=== PATIENT | male | born 1950 | race Caucasian/White ===

== ENCOUNTER 2017-11-24 01:28 | Inpatient (IN) ==
[~2017-11-24 01:28] MED LIST: Naloxone 0.4 MG/ML INJ IVP PRN
[2017-11-24] MEDS ORDERED: Ipratropium/Albuterol Neb 3 ML IH PRN (01:31)
[2017-11-24] MEDS ORDERED: *HR* Enoxaparin 60 MG/0.6 ML SYRINGE SQ ONE (01:48)
--- NOTE | 2017-11-24 01:53 | Internal Med History&Physical ---
Date of Encounter: 11/24/17 Time of Encounter: 01:51 Assessment and Plan (1) Community acquired pneumonia Current visit: No Status: Acute check serologies cefepime, azithro IV IVF Qualifiers: Qualified Code(s): J18.9 - Pneumonia, unspecified organism (2) Acute bronchitis Current visit: Yes Status: Acute duonebs, IV steroids Qualifiers: Bronchitis organism: other organism Qualified Code(s): J20.8 - Acute bronchitis due to other specified organisms (3) NSTEMI (non-ST elevated myocardial infarction) Current visit: Yes Status: Acute likely has some CAD with demand from acute illness trend trop TTE plavix load, ASA, lovenox start coreg repeat EKG in a.m cardiac eval when respiratory function stable (4) SIRS (systemic inflammatory response syndrome) Current visit: Yes Status: Acute treatment as above Internal Medicine - H&P: HPI Chief complaint: Shortness of breath History of present illness: Mr. Abrams is a 67 year old male who presents with pneumonia, SIRs presentation , NSTEMI. Patient was admitted to [facility] for progressive 3 weeks history of shortness of breath that is worsening. He reports being winded while ambulating around his house. Associated with diaphoresis this morning. Due to worsening and progressive shortness of breath and decreased physical condition at home he decided to visit the hospital today. He was initially admitted at [facility] but was subsequently transferred to the [place] due to elevation of lactic acid and troponemia that needed increased effort to manage. He had occasional chest tightness, pressure on review and most recently he had chest tightness a few days ago. He denies any chest pain at current on repeat questioning At baseline he smokes one and quarter pack of service per day for many years, has COPD but uses no home oxygen, has hypertension but is not on any medicines. He last saw a doctor 25 years ago per his report. EKG personally reviewed with rate of 108, T-wave inversion V4 ,5,[address] segment XR/XR chest 1V portable IMPRESSION: COPD. Patchy bilateral mid and lower lung interstitial opacities may reflect interstitial edema or atypical pneumonia. Past Med Surg Social Fam HX - Past Medical History Medical history: COPD Psychiatric history: no psych history - Past Surgical History Surgical History: no surgical history - Social History Smoking Status: Current every day smoker Smokeless Tobacco Status: No Alcohol use: occasionally Drug use: none Internal Medicine - H&P: Meds No Known Home Drugs 11/23/17 [History] 3 Allergy/AdvReac Type Severity Reaction Status Date / Time No Known Allergies Allergy Verified 11/23/17 14:47 All Systems PM: A 10-system review of systems was performed and is negative for pertinent findings except as documented above in the HPI. - Constitutional Exam: General - AAO x 3 Psych - Appropriate affect/speech. No agitation Eyes - JOSE MANUEL. Eye lids intact. No scleral icterus Neuro - No gross peripheral or central neuro deficits on inspection Heart - Sinus tachycardia. S1 and S2 present. No added HS/murmurs appreciated. No elevated JVD appreciated. Lung - Adequate air entry b/l, diffuse wheezes, crackles appreciated GI - Soft, non-tender. No hepatosplenomegaly/ascites. BS+ - No CVA/suprapubic tenderness or palpable bladder distension Skin - Intact. No rash/petechiae/ecchymosis. Warm extremities MSK - Joints with normal ROM. No joint swellings Internal Med - H&P Results - Labs CBC & Chem 7: 11/24/17 01:32
[2017-11-24] MEDS: 0.9 % Sodium Chloride 1,000 ML IVC SCH ×2 (01:55→05:51)
[2017-11-24 01:56] LABS: Basophils % 0.1 %; Hematocrit 49.1 % (37.5-50.1); Immature Granulocytes % 0.2 % (0-4); Lymphocytes # 0.4 K/mcL (0.6-4.6); Lymphocytes % 3.8 %; Mean Corpuscular HGB Conc 32.6 g/dL (31.6-35.5); Mean Corpuscular Hemoglobin 30.7 pg (28.0-33.3); Mean Corpuscular Volume 94.1 fL (83.0-100.0); Mean Platelet Volume 11.1 fL (9.4-12.4); Monocytes # 0.1 K/mcL (0.0-1.3); Monocytes % 1.3 %; Neutrophils # 9.2 K/mcL (1.6-8.9); Platelet Count 120 K/mcL (140-400); Red Blood Count 5.22 M/mcL (4.19-5.50); Red Cell Distribution Width 13.2 % (11.5-14.5); Segmented Neutrophils % 94.6 %
[2017-11-24] MEDS ORDERED: D5% in Water 1,000 ML IVC PRN (02:04)
[2017-11-24] MEDS ORDERED: *HR* Dextrose 50 % in Water (Syg) 50 ML SYRINGE IVP PRN (02:04)
[2017-11-24] MEDS ORDERED: Dextrose Gel 15 GM/37.5 ML TUBE PO PRN ×2 (02:04)
[2017-11-24 02:16] LABS: Alanine Aminotransferase 18 Units/L (7-52); Albumin 4.2 g/dL (3.5-5.7); Albumin/Globulin Ratio 1.8 (1.1-2.2); Alkaline Phosphatase 59 Units/L (34-104); Aspartate Amino Transferase 54 Units/L (13-39); BUN/Creatinine Ratio 17 (6-26); Bilirubin,Total 0.7 mg/dL (0.3-1.0); Blood Urea Nitrogen 18 mg/dL (8-23); Calcium 8.8 mg/dL (8.6-10.3); Carbon Dioxide 21 mEq/L (23-29); Chloride 105 mEq/L (98-107); Globulin 2.4 g/dL (2.4-3.5); Glucose 145 mg/dL (70-105); Magnesium 1.7 mg/dL (1.6-2.6); Osmolality,Calculated 290 (280-300); Potassium 3.9 mEq/L (3.5-5.1); Sodium 138 mEq/L (136-145); Total Protein 6.6 g/dL (6.4-8.9); eGFR For African Americans > 60 (> 60); eGFR For Non-African Americans > 60 (> 60)
[2017-11-24] MEDS: Ipratropium/Albuterol Neb 3 ML IH SCH ×4 (05:36→23:39)
[2017-11-24] MEDS: MethylPREDNISolone 40 MG/ML VIAL IVP SCH ×4 (05:52→23:06)
[2017-11-24 05:59] LABS: Adenovirus Not Detected (Not Detect); Bordetella Pertussis Not Detected (Not Detect); Chlamydophila pneumoniae Not Detected (Not Detect); Coronavirus 229E Not Detected (Not Detect); Coronavirus HKU1 Not Detected (Not Detect); Coronavirus NL63 Not Detected (Not Detect); Coronavirus OC43 Not Detected (Not Detect); Human Metapneumovirus Not Detected (Not Detect); Human Rhinovirus/Enterovirus Not Detected (Not Detect); Influenza A Subtype 2009 H1 Not Detected (Not Detect); Influenza A Untypeable Not Detected (Not Detect); Influenza B Not Detected (Not Detect); Mycoplasma pneumoniae Not Detected (Not Detect); Parainfluenza Virus 1 Not Detected (Not Detect); Parainfluenza Virus 2 Not Detected (Not Detect); Parainfluenza Virus 3 Not Detected (Not Detect); Parainfluenza Virus 4 Not Detected (Not Detect); Respiratory Syncytial Virus Not Detected (Not Detect)
[2017-11-24] MEDS: Insulin LISPRO 300 UNITS/3 ML VIAL SQ SCH ×4 (08:20→21:34)
[2017-11-24] MEDS: Azithromycin 500 MG in D5% in Water 250 ML IVPB SCH (08:27)
[2017-11-24] MEDS: Aspirin Enteric Coated 81 MG Tablet PO SCH (08:27)
[2017-11-24] MEDS ORDERED: *HR* Heparin 5,000 UNIT/ML VIAL IVP PRN (08:33)
[2017-11-24] MEDS ORDERED: *HR* Heparin 5,000 UNIT/ML VIAL IVP ONE (08:33)
[2017-11-24] MEDS ORDERED: Heparin 25,000 UNIT/500 ML D5W 25,000 UNIT/500 ML BAG IVC SCH (08:45)
[2017-11-24 09:08] LABS: INR 1.1; Prothrombin Time 11.5 Seconds (9.4-12.1)
--- NOTE | 2017-11-24 09:11 | Cardiology Consult Note ---
Date of Encounter: 11/24/17 Time of Encounter: 08:53 Assessment and Plan (1) NSTEMI (non-ST elevated myocardial infarction) Current Visit: Yes Status: Acute Troponin 0.05, 0.69, 3.00, 6.18. EKG sinus tach, evidence of inferior PA. Was on therapeutic Lovenox, hospitalist switched to Heparin gtt. ASA, Statin, BB were started. Pt has already been Plavix loaded with 300mg. TTE pending to evaluate structure and function. Risk factors for CAD include tobacco abuse and family hx. However, pt has not seen a healthcare provider in 25 years. May have other comorbidities that are unknown. Recommend LHC to further evaluate. R/B/A discussed. Pt agrees to proceed. However, pt currently unable to lay flat. Sitting in tripod position. Stopped IV fluids, give one time dose of IV Lasix 80mg. LHC once able to lie flat. (2) Acute exacerbation of CHF (congestive heart failure) Current Visit: Yes Status: Acute Acute CHF exacerbation. BNP 2048. TTE to determine systolic vs diastolic. CXR with pulmonary edema. Currently in tripod position, significant dyspnea. Stopped IV fluids. One time dose of IV Lasix 80mg given now. Will see how pt responds and plan to start scheduled Lasix. Recommend 2L fluid restriction, daily weights, Na and fluid restriction Qualifiers: Heart failure type: unspecified Qualified Code(s): I50.9 - Heart failure, unspecified (3) NSVT (nonsustained ventricular tachycardia) Current Visit: Yes Status: Acute Brief NSVT episodes on tele in setting of NSTEMI and CHF. BB started. As above, plan for LHC once respiratory status allows. TTE pending. Discussion w patient/family: The assessment and plan as outlined above was discussed with the patient and/or family members who expressed understanding and agreement. All questions were answered. Thank you for involving us in the care of your patient. Please call with any questions. I will discuss all the above with Dr. Jesus and make changes as necessary. History of Present Illness Consult date: 11/24/17 Requesting physician: Franck Rainey Consult reason: NSTEMI, CHF Chief complaint: dyspnea, chest tightness History of present illness: Mr. Abrams is a 67 year old male with known PMH of COPD, tobacco abuse that presented at [facility] for progressive 3 week hx of dyspnea. He also admits to intermittent chest tightness with radiation to left neck, no exacerbating or alleviating factors. Endorses intermittent diaphoresis, mostly at night. Pt has not seen a healthcare provider in 25 years. Since admission, pt has been diagnosed with pneumonia, SIRs presentation, NSTEMI. Troponins 0.05, 0.69, 3.00 , 6.18. Cardiology consulted for further recommendations. BNP 2048. CXR shows COPD. Patchy bilateral mid and lower lung interstitial opacities may reflect interstitial edema or atypical pneumonia. Pt is currently chest pain free, but sitting in tripod position due to significant dyspnea. Past Med Surg Social Fam HX - Past Medical History Medical history: COPD Psychiatric history: no psych history - Past Surgical History Surgical History: no surgical history - Social History Smoking Status: Current every day smoker Smokeless Tobacco Status: No Alcohol use: occasionally Drug use: none Medications and Allergies No Known Home Drugs 11/23/17 [History] 3 Allergy/AdvReac Type Severity Reaction Status Date / Time No Known Allergies Allergy Verified 11/24/17 08:43 All Systems Review: The remainder of the systems were reviewed and are negative - Cardiovascular Cardiovascular: as per HPI, chest pain at rest, chest pain with exertion, diaphoresis, dyspnea at rest, dyspnea on exertion - Respiratory Respiratory: dyspnea Physical Examination Vital Signs, Last 4 Hours Pulse Resp Pulse Ox 11/24/17 07:51 107 11/24/17 05:37 20 93 Vital Signs Temp Pulse Resp BP Pulse Ox 11/24/17 07:51 107 11/24/17 05:37 20 93 11/24/17 02:55 98.2 F 110 22 108/92 95 Intake and Output 11/23/17 11/24/17 11/24/17 23:59 07:59 15:59 Intake Total 1000 / 1000 Output Total 275 / 275 Balance 725 / 725 Intake: IV Fluids 1000 / 1000 0.9 % Sodium Chloride 1,000 ML 1000 / 1000 @ 100 mls/hr IVC .Q10H [facility] Rx#: [id number] Output: Urine 275 / 275 Other: Weight 65.499 kg Patient Weight 11/24/17 23:59 Weight 65.499 kg Vital Signs Temp Pulse Resp BP Pulse Ox 11/24/17 07:51 107 11/24/17 05:37 20 93 11/24/17 02:55 98.2 F 110 22 108/92 95 Intake and Output 11/23/17 11/24/17 11/24/17 23:59 07:59 15:59 Intake Total 1000 / 1000 Output Total 275 / 275 Balance 725 / 725 Intake: IV Fluids 1000 / 1000 0.9 % Sodium Chloride 1,000 ML 1000 / 1000 @ 100 mls/hr IVC .Q10H [facility] Rx#: [id number] Output: Urine 275 / 275 Other: Weight 65.499 kg Patient Weight 11/24/17 23:59 Weight 65.499 kg General: Conversant HEENT: Atraumatic, Normocephaly, Mucus Membranes Moist Neck: Normal carotid pulses Cardiac: Other (tachycardic) Lungs: Other (diminished, mild wheezes) Neuro: Alert and responsive, No focal deficits noted Abdomen: Soft, Non-Tender Skin: No rashes noted on visualized skin Musculoskeletal: No Chest Wall Tenderness Extremities: No Clubbing, No Cyanosis, No Edema, Normal Pulses Results 11/24/17 01:32 11/24/17 01:32 Lab Results 11/24/17 11/24/17 11/24/17 01:32 01:32 01:32 WBC 9.7 Hgb 16.0 D Hct 49.1 Plt Count 120 L Sodium 138 Potassium 3.9 Chloride 105 Carbon Dioxide 21 L BUN 18 Creatinine 1.08 Glucose 145 H Calcium 8.8 Magnesium 1.7 Total Bilirubin 0.7 AST 54 H ALT 18 Alkaline Phosphatase 59 Troponin I B-Natriuretic Peptide 2048 H 11/24/17 11/24/17 01:32 07:37 WBC Hgb Hct Plt Count Sodium Potassium Chloride Carbon Dioxide BUN Creatinine Glucose Calcium Magnesium Total Bilirubin AST ALT Alkaline Phosphatase Troponin I 3.00 H* 6.18 H* B-Natriuretic Peptide Short CBC 11/24/17 Range/Units 01:32 WBC 9.7 (4.3-11.1) K/mcL Hgb 16.0 D (12.9-16.9) g/dL Hct 49.1 (37.5-50.1) % Plt Count 120 L (140-400) K/mcL Neutrophils # 9.2 H (1.6-8.9) K/mcL BMP 11/24/17 Range/Units 01:32 Sodium 138 (136-145) mEq/L Potassium 3.9 (3.5-5.1) mEq/L Chloride 105 (98-107) mEq/L Carbon Dioxide 21 L (23-29) mEq/L BUN 18 (8-23) mg/dL Creatinine 1.08 (0.70-1.30) mg/dL Glucose 145 H (70-105) mg/dL Calcium 8.8 (8.6-10.3) mg/dL Cardiac Enzymes 11/24/17 11/24/17 Range/Units 07:37 01:32 Troponin I 6.18 H* 3.00 H* (< 0.04) ng/mL Liver Function 11/24/17 Range/Units 01:32 Total Bilirubin 0.7 (0.3-1.0) mg/dL AST 54 H (13-39) Units/L ALT 18 (7-52) Units/L Alkaline Phosphatase 59 (34-104) Units/L Albumin 4.2 (3.5-5.7) g/dL Active Medications Albuterol/Ipratropium (Duoneb) 3 ml IH QIDR [facility] Stop: 05/26/18 05:01 Last Admin: 11/24/17 05:36 Dose: 3 ml Albuterol/Ipratropium (Duoneb) 3 ml IH [id number] PRN PRN Reason: Shortness Of Breath/Wheezing Stop: 05/26/18 01:32 Aspirin (Aspirin Ec) 81 mg PO DAILY [facility] Stop: 05/26/18 09:01 Last Admin: 11/24/17 08:27 Dose: 81 mg Atorvastatin Calcium (Lipitor) 80 mg PO HS [facility] Stop: 05/26/18 08:46 Carvedilol (Coreg) 3.125 mg PO BIDWM [facility] PRN Reason: Protocol Stop: 05/26/18 01:46 Last Admin: 11/24/17 08:27 Dose: 3.125 mg Dextrose/Water (Dextrose 50% (Syg)) 25 ml IVP AD PRN PRN Reason: Hypoglycemia Stop: 05/26/18 02:05 Glucagon (Glucagen) 1 mg IM ONCE PRN PRN Reason: Hypoglycemia Stop: 05/26/18 02:05 Glucose (Gluctose) 15 gm PO ONCE PRN PRN Reason: Hypoglycemia Stop: 05/26/18 02:05 Glucose (Gluctose) 30 gm PO ONCE PRN PRN Reason: Hypoglycemia Stop: 05/26/18 02:05 Heparin Sodium (Porcine) (Heparin) 3,900 unit 60 unit/kg (3900 unit) IVP Q6HR PRN PRN Reason: SEE COMMENTS Stop: 05/26/18 08:34 Heparin Sodium (Porcine) (Heparin) 2,000 unit 30 unit/kg (2000 unit) IVP Q6H PRN PRN Reason: SEE COMMENTS Stop: 05/26/18 08:34 Sodium Chloride (0.9 % Sodium Chloride) 1,000 mls @ 100 mls/hr IVC .Q10H [facility] Stop: 05/26/18 01:31 Last Admin: 11/24/17 05:51 Dose: 100 mls/hr Azithromycin 500 mg/ Dextrose 250 mls @ 252 mls/hr IVPB Q24H [facility] Stop: 05/26/18 09:01 Last Admin: 11/24/17 08:27 Dose: 252 mls/hr Dextrose (Dextrose 5%) 1,000 mls @ 100 mls/hr IVC .Q10H PRN PRN Reason: HYPOGLYCEMIA Stop: 05/26/18 02:05 Heparin Sodium/Dextrose (Heparin 25,000 Unit/500 Ml D5w) 25,000 unit in 500 mls @ 15.72 mls/hr IVC .Q24H [facility]; 12 UNIT/KG/HR PRN Reason: Protocol Stop: 05/26/18 08:46 Last Admin: 11/24/17 09:03 Dose: 12 unit/kg/hr, 15.72 mls/hr Insulin Human Lispro (Humalog) 0 units SQ TIDAC [facility] PRN Reason: Protocol Stop: 05/26/18 07:31 Last Admin: 11/24/17 08:20 Dose: Not Given Insulin Human Lispro (Humalog) 0 units SQ HS [facility] PRN Reason: Protocol Stop: 05/26/18 21:01 Methylprednisolone (Solu-Medrol) 40 mg IVP Q6HR [facility] Stop: 05/26/18 06:01 Last Admin: 11/24/17 05:52 Dose: 40 mg Naloxone HCl (Narcan) 0.4 mg IVP Q2MIN PRN PRN Reason: SEE COMMENTS Stop: 05/26/18 01:27 - EKG Interpretation EKG results cardiology: personally reviewed (sinus tach, rate 108, LVH, inferior PA), other (12 hr tele AVG HR 105, SR, brief runs of NSVT noted-- longest run 8 beats) Consult Discharge Plan - Plan Referrals: NONE,PCP [Primary Care Provider] -
[2017-11-24] MEDS ORDERED: Furosemide 40 MG/4 ML VIAL IVP ONE ×2 (09:18→09:27)
--- NOTE | 2017-11-24 11:33 | Internal Med Progress Note ---
<Zac Jacinto - Last Filed: 11/24/17 11:31> Date of Encounter: 11/24/17 Time of Encounter: 11:31 - Assessment and plan (1) NSTEMI (non-ST elevated myocardial infarction) Current Visit: Yes Status: Acute Assessment and plan: Patient's troponins are 0.05, 0.69, 3.00, 6.18 respectively. Continues to have chest tightness and worsening shortness of breath. EKG shows sinus tachycardia with Q waves in inferior leads. Patient heparin GTT. Continue aspirin, statin, beta bev Echocardiogram pending. Risk factors: Family history: Mother at age 52 secondary to [place]. Father at age 70 secondary to [place]. Patient is a long-time tobacco abuser. (2) Acute exacerbation of CHF (congestive heart failure) Current Visit: Yes Status: Acute Assessment and plan: Acute CHF exacerbation. BNP 2047 Patient has never had echocardiogram in the past. Echocardiogram pending. Continue cardiac diet. Fluid restrict to 2 L. Patient given Lasix 80 mg IV this morning Strict I's and O's. Qualifiers: Heart failure type: unspecified Qualified Code(s): I50.9 - Heart failure, unspecified (3) Community acquired pneumonia Current Visit: Yes Status: Suspected Assessment and plan: Patient presented with shortness of breath Patient is a long time tobacco abuser. Chest x-ray shows bilateral patchy mid and lower lung interstitial opacities possibly atypical pneumonia. Patient was started on azithromycin Awaiting blood cultures, serologies Strep and legionella antigens negative. RIP panel negative Qualifiers: Laterality: unspecified laterality Qualified Code(s): J18.9 - Pneumonia, unspecified organism (4) Sepsis Current Visit: Yes Status: Acute Assessment and plan: Leukocytosis, tachycardia, tachypnea, lactic acidosis Secondary to suspected pneumonia. Continue antibiotics. Awaiting blood cultures. Qualifiers: Sepsis type: sepsis due to unspecified organism Qualified Code(s): A41.9 - Sepsis, unspecified organism (5) Acute kidney failure Current Visit: Yes Status: Suspected Assessment and plan: Resolved. IVF d/c Qualifiers: Acute renal failure type: unspecified Qualified Code(s): N17.9 - Acute kidney failure, unspecified (6) Acid-base disorder, mixed Current Visit: Yes Status: Acute Assessment and plan: REspiratory acidosis with metabolic alkalosis 2nd to COPD Metabolic acidosis 2nd to lactic acidosis 2nd to NSTEMI in setting of MAGDY (7) Metabolic acidosis Current Visit: Yes Status: Acute Assessment and plan: as stated above. (8) COPD exacerbation Current Visit: Yes Status: Acute Assessment and plan: Smokes 1.25 PPD for many years continue O2, steroids, antibiotics (9) Tobacco abuse Current Visit: Yes Status: Acute Assessment and plan: Patient educated on benefits of tobacco cessation. - Subjective Interval history: Patient reports his shortness of breath is worse than on admission. He reports having continued chest tightness this morning. He reports overall feeling worse and admission. Cardiology recommended left heart catheter to patient today and patient agreed to procedure. - Constitutional Vitals: Temp Pulse Resp BP Pulse Ox 98.1 F 103 20 153/98 96 11/24/17 09:19 11/24/17 11:21 11/24/17 10:51 11/24/17 10:33 11/24/17 10:51 - Other Additional findings: General: Lethargic, moderate distress Heart: Sinus tachycardia Lungs: Diminished, bilateral wheezing Abdomen: Soft nontender, nondistended positive bowel sounds Skin: warm and dry Extremities: Absent pedal edema, Neuro: Alert oriented 3 Vascular: Pedal and radial pulses 2 out of 4 Internal Medicine: Result - Labs CBC & Chem 7: 11/24/17 01:32 11/24/17 01:32 Labs: Short CBC 11/24/17 Range/Units 01:32 WBC 9.7 (4.3-11.1) K/mcL Hgb 16.0 D (12.9-16.9) g/dL Hct 49.1 (37.5-50.1) % Plt Count 120 L (140-400) K/mcL Neutrophils # 9.2 H (1.6-8.9) K/mcL BMP 11/24/17 01:32 Sodium 138 Potassium 3.9 Chloride 105 Carbon Dioxide 21 L BUN 18 Creatinine 1.08 Glucose 145 H Calcium 8.8 Cardiac Enzymes 11/24/17 11/24/17 Range/Units 01:32 07:37 Troponin I 3.00 H* 6.18 H* (< 0.04) ng/mL Liver Function 11/24/17 Range/Units 01:32 Total Bilirubin 0.7 (0.3-1.0) mg/dL AST 54 H (13-39) Units/L ALT 18 (7-52) Units/L Alkaline Phosphatase 59 (34-104) Units/L Albumin 4.2 (3.5-5.7) g/dL - ABG Interpretation ABG results: PT/INR, D-dimer PT 11.5 Seconds (9.4-12.1) 11/24/17 08:46 Consult Discharge Plan - Plan Referrals: Rosa Schwarz, [facility] [employer] [Advanced Practice Nurse] - 12/01/17 1:00 pm NONE,PCP [Primary Care Provider] - <Keyur Langford - Last Filed: 11/24/17 18:15> Date of Encounter: 11/24/17 - Constitutional Vitals: Temp Pulse Resp BP Pulse Ox 98.2 F 102 18 155/91 94 11/24/17 15:55 11/24/17 18:10 11/24/17 16:15 11/24/17 18:10 11/24/17 16:15 Internal Medicine: Result - Labs CBC & Chem 7: 11/24/17 01:32 11/24/17 01:32 Labs: Short CBC 11/24/17 Range/Units 01:32 WBC 9.7 (4.3-11.1) K/mcL Hgb 16.0 D (12.9-16.9) g/dL Hct 49.1 (37.5-50.1) % Plt Count 120 L (140-400) K/mcL Neutrophils # 9.2 H (1.6-8.9) K/mcL BMP 11/24/17 01:32 Sodium 138 Potassium 3.9 Chloride 105 Carbon Dioxide 21 L BUN 18 Creatinine 1.08 Glucose 145 H Calcium 8.8 Cardiac Enzymes 11/24/17 11/24/17 Range/Units 01:32 07:37 Troponin I 3.00 H* 6.18 H* (< 0.04) ng/mL Liver Function 11/24/17 Range/Units 01:32 Total Bilirubin 0.7 (0.3-1.0) mg/dL AST 54 H (13-39) Units/L ALT 18 (7-52) Units/L Alkaline Phosphatase 59 (34-104) Units/L Albumin 4.2 (3.5-5.7) g/dL - ABG Interpretation ABG results: PT/INR, D-dimer PT 11.5 Seconds (9.4-12.1) 11/24/17 08:46 - Attending Attestation I examined this patient and my medical decision-making was reviewed with the Resident Physician on 11/24/17. I agree with the documented findings, disposition and treatment plan as described except to the extent set forth below. Mr Abrams was admitted earlier today with presumed sepsis and acute NSTEMI. He is pain free at this time. He is to go to cardiac cath today. Exam alert Comfortable Mucus membranes dry Lungs diminished Heart reg I/P 1. NSTEMI - for cath today Agree with plan as above.
[2017-11-24] MEDS ORDERED: Heparin 1,000 UNITS/500 mL 500 ML ONE (14:03)
[2017-11-24] MEDS ORDERED: ISOVUE-370 200 ML INFUS..BTL IV ONE (14:03)
[2017-11-24] MEDS ORDERED: *HR* Heparin 10,000 UNIT/10 ML VIAL ONE (14:03)
[2017-11-24] MEDS ORDERED: 0.9 % Sodium Chloride 1,000 ML ONE ×2 (14:03→14:28)
--- NOTE | 2017-11-24 14:16 | Pre-Sedation Evaluation ---
Pre-sedation evaluation - Pre-sedation checklist Date of procedure: 11/24/17 Procedure: LHC Recent Vitals: Last Vital Signs Temp 97.8 F 11/24/17 12:48 Pulse 99 11/24/17 12:48 Resp 19 11/24/17 12:48 BP 144/88 11/24/17 12:48 Pulse Ox 96 11/24/17 10:51 ASA Classification *see protocol: CLASS II-Mild systemic disease Plan of Care: Pt appropriate candidate for procedure/moderate/conscious sedation
[2017-11-24] MEDS ORDERED: *HR* FentaNYL (PF) 100 MCG/2 ML VIAL ONE (14:40)
[2017-11-24] MEDS ORDERED: *HR* Midazolam HCl 2 MG/2 ML VIAL ONE (14:40)
[2017-11-24] MEDS ORDERED: Nitroglycerin Spray 4.9 GM BOTTLE ONE (14:52)
[2017-11-24] MEDS ORDERED: *HR* Enoxaparin 40 MG/0.4 ML SYRINGE SQ SCH (15:00)
--- NOTE | 2017-11-24 15:55 | Invasive Diagnostic Lab Proc ---
Name: Phillip Abrams Date of Study: 11/24/2017 Date: 1950 Ht: 68.1in Medical Record#: [id number] Age: 67 Wt: 143.30lb Gender: Male BSA: 1.78 Order #: [id number] BMI: 21.72 Physicians Procedure Physician: Ant Crisostomo MD Referring MD: Referring MD: Staff Name Position Time In Alissa Restrepo RN Medical Oncologist 02:38 PM Tad Olivares RN Medical Oncologist 02:38 PM Claudine Neville RN Scrub 02:38 PM Maxine Hart RT (R) Monitor 02:38 PM Indications Indication Non-Stemi Procedures Performed Procedure CORONARY ARTERY ANGIO S&I Pre-Procedure Checklist Informed consent is complete signed and on chart. H&P is on chart. ID band is on and ID verified with patient. Patient NPO for procedure The procedure was described for the patient and questions were answered. Blood Pressure: 163/110 ECG is on chart. Rhythm: NSR Plan of Care Patient will tolerate the procedure without complications. Adequate level of comfort will be maintained. Hemodynamics will remain stable Patient will recover from procedure without complications. Respiratory function will be maintained. Cardiac rhythm will remain stable. Patient temperature will be maintained. Patient and/or family have verbalized understanding of the procedure. Patient Education Chief Complaint/Reason for Test: Cardiac Cath Developmental Category: Geriatric (65+ years) Developmentally Appropriate for Age: Yes Learning Barriers: None Education Needs: Procedure Education Method: Verbal Information Taught: Cardiac Cath Educational Evaluation: Able to repeat information Intravenous Access Time IV Size Location DC'd Fluid/Drip Rate Units RN 02:16 PM 20g 1 09/04" Patent On Arrival Lt Antecubital 0.9NaCl ml/hr Allergies No Known Allergies Vital Signs Time BP (mmHg) HR (bpm) O2 Sat. RR (bpm) LOC 163 / 110 121 94 % 20 5 = Fully awake and oriented or at pre-proc level 02:39 PM / % 5 = Fully awake and oriented or at pre-proc level 02:39 PM / % 4 = Oriented but drowsy 02:54 PM / % 4 = Oriented but drowsy 03:09 PM / % 4 = Oriented but drowsy 03:24 PM / % 4 = Oriented but drowsy 02:41 PM 163 / 110 120 94 % 18 02:45 PM 165 / 116 117 95 % 20 02:50 PM 161 / 100 106 95 % 25 02:55 PM 147 / 90 98 94 % 17 03:00 PM 142 / 84 101 92 % 12 03:05 PM 138 / 86 101 91 % 14 03:10 PM 151 / 95 105 92 % 22 03:15 PM 154 / 96 104 93 % 33 03:20 PM 144 / 85 102 93 % 25 03:25 PM 147 / 87 102 94 % 32 03:30 PM 148 / 89 101 94 % 37 03:35 PM 145 / 95 103 95 % 20 Procedural Medications Time Medication Dose Units Method Given By 02:39 PM Oxygen 2 L/min nasal cannula Tad Olivares RN 02:47 PM Versed 1 mg Intravenous Tad Olivares RN 02:48 PM Fentanyl 50 mcg Intravenous Tad Olivares RN 02:52 PM Lidocaine 2% 10 ml Subcutaneous Ant Crisostomo MD 03:07 PM Lidocaine 2% 10 ml Subcutaneous Ant Crisostomo MD ASA Classification: CLASS II- Mild systemic disease (i.e. well-controlled diabetes, hypertension, asthma, cigarette smoking) Iain Score Preprocedure Postprocedure Activity 2- Moves 4 extremities sustained head lift Activity 2- Moves 4 extremities sustained head lift Circulation 2- SBP +/= 20 points of pre-anesthetic level Circulation 2- SBP +/= 20 points of pre-anesthetic level Consciousness 2- Awake and alert oriented x 3 Consciousness 2- Awake and alert oriented x 3 O2 Saturation 2- Able to maintain O2 satruation of 92% on room air O2 Saturation 2- Able to maintain O2 satruation of 92% on room air Respiratory 2- Able to deep breathe and cough well Respiratory 2- Able to deep breathe and cough well Total Score 10 Total Score 10 Contrast Agent: Isovue Diagnostic Contrast: 100 ml Total Contrast: 100 ml Fluoro Dose: 503 mGy Activated Clotting Time Time Seconds to Clot 03:23 PM 194 Procedure Log Time Note Enter By 02:38 PM Pt arrived to dental lab technician 2 at 14:38 [email or web address] 02:38 PM Alissa Restrepo RN Position: Medical Oncologist Time in: 14:38 [email or web address] 02:38 PM Tad Olivares RN Position: Medical Oncologist Time in: 14:38 [email or web address] 02:38 PM Claudine Neville RN Position: Scrub Time in: 14:38 [email or web address] 02:38 PM Maxine Hart RT (R) Position: Monitor Time in: 14:38 [email or web address] 02:38 PM Patient charges- Angio tray pack, Navilyst 3mm J, Pulse Oximetry and ACIST tubing and transducer [email or web address] 02:38 PM Case Delayed No [email or web address] 02:38 PM Hair removed from procedure site in holding area using clippers. Bilateral groin prepped with Chloraprep by Alissa Restrepo RN, then patient was draped. Skin intact. [email or web address] 02:38 PM Physician arrived 14:38 [email or web address] 02:38 PM ASA Class CLASS II- Mild systemic disease (i.e. well-controlled diabetes, hypertension, asthma, cigarette smoking) [email or web address] 02:38 PM Meet and greet completed [email or web address] 02:38 PM Sign in performed according to hospital policy. [email or web address] 02:39 PM Procedure start 14:39 [email or web address] 02:39 PM Time: 14:39 Oxygen on at 2 L/min per nasal cannula by Tad Olivares RN [email or web address] 02:39 PM Time: 14:39 Patient comfortable and pain free: Yes [email or web address] 02:39 PM Time: 14:39LOC: 5 = Fully awake and oriented or at pre-proc level [email or web address] 02:39 PM CathStat 02:39 PM Vitals capture started with the following parameters, Patient=Adult, Interval=5 min, Initial Cinbpzlo=663 mmHg, Deflation Rate=3 mmHg, Cuff placed on Right Arm 02:40 PM Recorded ECG: CF=773 Condition=Condition 1 02:40 PM Recorded ECG: OD=278 Condition=Condition 1 02:41 PM QN=700 bpm, EYJW=436/110 mmhg, SpO2=94.0 %, Resp=18 B/min 02:44 PM Pressure channel 1 zeroed. 02:45 PM Pressure channel 1 zeroed. 02:45 PM AF=879 bpm, PWRD=718/116 mmhg, SpO2=95.0 %, Resp=20 B/min 02:48 PM Time: 14:47 Versed 1 mg Intravenous Given by Tad Olivares RN [email or web address] 02:48 PM Time: 14:48 Fentanyl 50 mcg Intravenous Given by Tad Olivares RN [email or web address] 02:49 PM Vitals capture stopped. 02:49 PM Vitals capture started with the following parameters, Patient=Adult, Interval=5 min, Initial Tkguyfmb=376 mmHg, Deflation Rate=3 mmHg, Cuff placed on Right Arm 02:50 PM Time out performed according to hospital policy [email or web address] 02:50 PM NL=674 bpm, RPIO=830/100 mmhg, SpO2=95.0 %, Resp=25 B/min 02:52 PM Time: 14:52 10 ml Lidocaine 2% to right groin Subcutaneous Given by Ant Crisostomo MD [email or web address] 02:52 PM Micro-Introducer Kit utilized for sheath placement [email or web address] 02:54 PM 3mls contrast rt groin. [email or web address] 02:54 PM Time: 14:39LOC: 4 = Oriented but drowsy [email or web address] 02:54 PM Time: 14:39 Patient comfortable and pain free: Yes [email or web address] 02:55 PM HR=98 bpm, BYOA=152/90 mmhg, SpO2=94.0 %, Resp=17 B/min 02:58 PM Wire removed [email or web address] 02:58 PM 0.035 145cm Glidewire wire [id number] [email or web address] 03:00 PM FO=168 bpm, HUNG=922/84 mmhg, SpO2=92.0 %, Resp=12 B/min 03:[address] Crisostomo pulled sheath unable to get wire through rt Iliac artery. Severe calcification in artery. [email or web address] 03:05 PM AR=357 bpm, RSFW=926/86 mmhg, SpO2=91.0 %, Resp=14 B/min 03:07 PM Time: 15:07 10 ml Lidocaine 2% to left groin Subcutaneous Given by Ant Crisostomo MD [email or web address] 03:08 PM Pressure channel 1 zeroed. 03:08 PM Micro-Introducer Kit utilized for sheath placement [email or web address] 03:09 PM Time: 14:54 Patient comfortable and pain free: Yes [email or web address] 03:09 PM Time: 14:54LOC: 4 = Oriented but drowsy [email or web address] 03:10 PM CE=529 bpm, SOSO=290/95 mmhg, SpO2=92.0 %, Resp=22 B/min 03:11 PM Bolus angiogram of left Femoral complete: 4 ml/sec for a total of 7 mls [email or web address] 03:12 PM Access obtained by percutaneous puncture. 5Fr 10cm Terumo Flint sheath placed in left Femoral artery. [id number] [email or web address] 03:13 PM 0.035 145cm Navilyst 3mmJ wire [id number] [email or web address] 03:13 PM 5Fr FR 4 catheter inserted over the wire DNC [email or web address] 03:15 PM CY=629 bpm, PEBI=134/96 mmhg, SpO2=93.0 %, Resp=33 B/min 03:17 PM Wire removed [email or web address] 03:18 PM Recorded Pressure: Ao, KF=436, Condition=Condition 1 (Aorta) Ao 128/91/109 03:19 PM Lesion found in Distal RCA. Pre Stenosis: 100 Pre MYKE Flow: [email or web address] 03:19 PM Lesion found in Proximal RCA. Pre Stenosis: Pre MYKE Flow: [email or web address] 03:19 PM Catheter removed [email or web address] 03:19 PM 5Fr FL 4 catheter inserted over the wire DNC [email or web address] 03:20 PM KH=176 bpm, ELEW=046/85 mmhg, SpO2=93.0 %, Resp=25 B/min 03:23 PM 4Fr FL 4 catheter inserted over the wire DNC [email or web address] 03:24 PM Time: 15:09LOC: 4 = Oriented but drowsy [email or web address] 03:25 PM Time: 15:09 Patient comfortable and pain free: Yes [email or web address] 03:25 PM FD=070 bpm, VKDB=735/87 mmhg, SpO2=94.0 %, Resp=32 B/min 03:26 PM Recorded Pressure: Ao, KS=782, Condition=Condition 1 (Aorta) Ao 124/89/105 03:26 PM LCA angiography performed in multiple views. [email or web address] 03:27 PM Recorded Pressure: Ao, MT=084, Condition=Condition 1 (Aorta) Ao 116/85/100 03:30 PM LS=509 bpm, AGNS=758/89 mmhg, SpO2=94.0 %, Resp=37 B/min 03:31 PM Catheter removed [email or web address] 03:31 PM 5Fr Pigtail catheter inserted over the wire DNC [email or web address] 03:33 PM Catheter removed [email or web address] 03:35 PM AR=416 bpm, TFHH=847/95 mmhg, SpO2=95.0 %, Resp=20 B/min 03:36 PM Coronary Dominance: right [email or web address] 03:39 PM Procedure completed at 15:39 [email or web address] 03:39 PM Did you address MYKE flow and Dominance? Yes [email or web address] 03:40 PM Time: 15:25 Patient comfortable and pain free: Yes [email or web address] 03:40 PM Time: 15:24LOC: 4 = Oriented but drowsy [email or web address] 03:40 PM Sign out completed: Radiation Dose 503.10 mGy Fluoro Time: 10.3 Isovue 370 - 200ml contrast 100 ml given by Ant Crisostomo MD. Complications: NoneCardiac Rehab Consult needed: NoConfirmed administered medications: Yes [email or web address] 03:40 PM Isovue 370 - 200ml,1 Bottle(s) used. [email or web address] 03:40 PM Sheath left in place to be pulled on floor/holding areaV+Pad [email or web address] 03:40 PM Estimated Blood Loss: minimal [email or web address] 03:40 PM Post ECG NSR [email or web address] 03:40 PM Post Blood Pressure 145/95 [email or web address] 03:40 PM Information taught Cardiac Cath [email or web address] 03:41 PM 15:40 Post Pulses Bilateral DP & PT 1+ [email or web address] 03:41 PM Education needs Procedure, Plan of Care, and Disease Process [email or web address] 03:41 PM Learning barriers :None [email or web address] 03:41 PM Education Methods Verbal [email or web address] 03:41 PM Education evaluation Able to repeat information [email or web address] 03:41 PM Site status No bleeding/hematoma - Lt Groin as reported by Claudine Neville RN at 15:41 [email or web address] 03:41 PM Opsite applied [email or web address] 03:41 PM Delay to floor No [email or web address] 03:41 PM Family placed in consult room. [email or web address] 03:41 PM Complications: None [email or web address] 03:41 PM Fluoro Time: 10.3 [email or web address] 03:42 PM Isovue 370 - 200ml contrast [address] Crisostomo. [email or web address] 03:42 PM Radiation Dose 503.10 mGy [email or web address] 03:43 PM Report given to Amy JJ Pt taken to 2N Room #10. 15:42 [email or web address] 03:47 PM Patient out of room: 15:47 [email or web address] Complications Complication None None Hemodynamics Pressures Site Systolic/A Wave Diastolic/V Wave Mean AO 128 91 109 AO 124 89 105 AO 116 85 100 Post Procedure Information Blood Pressure: 145/95 mmHg Rhythm: NSR Post procedural instructions were given Site Checks Time Location Status Staff Sheath In? Note 03:41 PM Lt Groin No bleeding/hematoma Claudine Neville RN Pulses Time Site Pre-Procedure Post-Procedure Note 11/24/2017 2:16:00 PM Bilateral DP & PT 1+ 3:40:00 PM Bilateral DP & PT 1+ Updated by Maxine Hart RT(R) on 11/24/2017 3:47:50 PM electronically signed on 11/24/2017 3:48:34 PM with status of Final
[2017-11-24] MEDS: Nitroglycerin 0.2 MG PATCH.TD24 TD SCH (17:35)
[2017-11-24] MEDS: *HR* Heparin 5,000 UNIT/ML VIAL IVP PRN (23:06)
[2017-11-25] MEDS: Ipratropium/Albuterol Neb 3 ML IH SCH ×4 (04:28→22:41)
[2017-11-25 05:40] LABS: Basophils % 0.1 %; Hematocrit 44.6 % (37.5-50.1); Immature Granulocytes % 0.8 % (0-4); Lymphocytes # 0.9 K/mcL (0.6-4.6); Lymphocytes % 4.9 %; Mean Corpuscular HGB Conc 32.3 g/dL (31.6-35.5); Mean Corpuscular Hemoglobin 30.6 pg (28.0-33.3); Mean Corpuscular Volume 94.9 fL (83.0-100.0); Mean Platelet Volume 11.7 fL (9.4-12.4); Monocytes # 0.8 K/mcL (0.0-1.3); Monocytes % 4.2 %; Neutrophils # 17.1 K/mcL (1.6-8.9); Platelet Count 140 K/mcL (140-400); Red Cell Distribution Width 13.2 % (11.5-14.5)
[2017-11-25 05:43] LABS: Hemoglobin 14.4 g/dL (12.9-16.9)
[2017-11-25 05:59] LABS: BUN/Creatinine Ratio 32 (6-26); Blood Urea Nitrogen 37 mg/dL (8-23); Calcium 9.1 mg/dL (8.6-10.3); Carbon Dioxide 28 mEq/L (23-29); Chloride 105 mEq/L (98-107); Glucose 137 mg/dL (70-105); Magnesium 1.9 mg/dL (1.6-2.6); Osmolality,Calculated 299 (280-300); Potassium 4.6 mEq/L (3.5-5.1); Sodium 139 mEq/L (136-145); eGFR For African Americans > 60 (> 60); eGFR For Non-African Americans > 60 (> 60)
[2017-11-25] MEDS ORDERED: *HR* Enoxaparin 40 MG/0.4 ML SYRINGE SQ SCH (06:00)
[2017-11-25] MEDS: MethylPREDNISolone 40 MG/ML VIAL IVP SCH ×2 (06:17→11:31)
[2017-11-25] MEDS: Furosemide 40 MG/4 ML VIAL IVP SCH (08:14)
[2017-11-25] MEDS: Insulin LISPRO 300 UNITS/3 ML VIAL SQ SCH ×4 (08:15→21:30)
[2017-11-25] MEDS: Aspirin Enteric Coated 81 MG Tablet PO SCH (08:15)
[2017-11-25] MEDS: Nitroglycerin 0.2 MG PATCH.TD24 TD SCH (08:15)
[2017-11-25] MEDS: Azithromycin 500 MG in D5% in Water 250 ML IVPB SCH (08:15)
[2017-11-25 09:59] LABS: Estimated Average Glucose 114 mg/dl; Hemoglobin A1C 5.6 %
--- NOTE | 2017-11-25 12:12 | Cardiology Progress Note ---
Date of Encounter: 11/25/17 Time of Encounter: 12:09 Assessment and Plan (1) NSTEMI (non-ST elevated myocardial infarction) Current Visit: Yes Status: Acute Troponin 0.05, 0.69, 3.00, 6.18. EKG sinus tach, evidence of inferior NC. ASA, Statin, BB. Pt was Plavix loaded with 300mg. LHC revealed severe three vessel CAD. Collateral vessels from LCA to right PDA that are visualized. No intervention was performed. 50% mLAD, 70% distal LAD, 70 % apical LAD, 90% distal LCx and 99% 1st marginal--both diffusely diseased. 70% pRCA, 80% mLAD, 100% distal RCA. TTE resulted--LVEF 20-25%. Severe LV systolic dysfunction - appears global but views are angulated and not all segments are well visualized. Thrombus is not visualized in the LV apex - Definity was not used. Mild left ventricular diastolic dysfunction. Normal right ventricular structure and function. Mild- moderate aortic regurgitation. No pulmonary hypertension. Right and left femoral access sites healing well. Small right groin hematoma. No active bleeding. Moderate right groin ecchymosis. H&H stable. Reviewed films with interventionalist, CT surgery consult recommended to evaluate for CABG. Will not start daily Plavix at this time. Continue to follow. Recommend keeping overnight for CT surgery evaluation today and medication optimization. (2) Acute exacerbation of CHF (congestive heart failure) Current Visit: Yes Status: Acute Acute systolic CHF exacerbation. BNP 2048. TTE EF 20-25%. CXR with pulmonary edema. Agree with IV Lasix 40mg daily. Plan to transition to PO Lasix at d/c. Recommend 2L fluid restriction, daily weights, Na and fluid restriction. Qualifiers: Heart failure type: unspecified Qualified Code(s): I50.9 - Heart failure, unspecified (3) Ischemic cardiomyopathy Current Visit: Yes Status: Acute EF 20-25% on TTE. LHC with severe [address] surgery consulted. BB and ACEi started. On IV Lasix as above. Continue to follow. Discussion w patient/family: The assessment and plan as outlined above was discussed with the patient and/or family members who expressed understanding and agreement. All questions were answered. Thank you for involving us in the care of your patient. Please call with any questions. I will discuss all the above with Dr. Jesus and make changes as necessary. Subjective Principal diagnosis: NSTEMI, CAD, CHF Interval history: S/P LHC yesterday for NSTEMI, peak troponin 6.18. LHC revealed severe three vessel CAD. Collateral vessels from LCA to right PDA that are visualized. No intervention was performed. TTE resulted--LVEF 20-25%. Severe LV systolic dysfunction - appears global but views are angulated and not all segments are well visualized. Thrombus is not visualized in the LV apex - Definity was not used. Mild left ventricular diastolic dysfunction. Normal right ventricular structure and function. Mild-moderate aortic regurgitation. No pulmonary hypertension. Pt denies chest pain. Reports dyspnea is improving. Objective Vital Signs, Last 4 Hours Temp Pulse Resp BP Pulse Ox 11/25/17 11:33 98.4 F 92 16 123/75 93 11/25/17 11:23 15 93 11/25/17 09:14 95 11/25/17 08:25 93 Vital Signs Temp Pulse Pulse Resp BP Pulse Ox 11/25/17 11:33 98.4 F 92 16 123/75 93 11/25/17 11:23 15 93 11/25/17 09:14 95 11/25/17 08:25 93 11/25/17 08:03 98.4 F 97 15 141/88 93 11/25/17 04:28 16 96 11/25/17 03:06 98.0 F 89 14 136/75 96 11/24/17 23:39 17 90 11/24/17 23:28 97.6 F 92 15 140/84 93 11/24/17 19:27 97.8 F 102 16 151/90 90 11/24/17 19:02 105 131/102 11/24/17 18:45 104 153/95 11/24/17 18:35 105 156/99 11/24/17 18:31 103 155/109 11/24/17 18:25 101 11/24/17 18:20 100 151/93 11/24/17 18:15 102 151/99 11/24/17 18:10 102 155/91 11/24/17 18:05 102 102 160/96 11/24/17 18:00 104 104 158/96 11/24/17 17:52 100 100 158/98 11/24/17 17:30 103 103 169/103 11/24/17 17:15 101 101 165/103 11/24/17 17:00 102 102 172/97 11/24/17 16:45 109 109 184/137 11/24/17 16:30 103 103 162/110 11/24/17 16:18 105 11/24/17 16:15 101 101 18 154/96 94 11/24/17 16:00 108 167/104 11/24/17 15:55 98.2 F 111 18 176/124 93 11/24/17 12:48 97.8 F 99 19 144/88 Intake and Output 11/24/17 11/25/17 11/25/17 23:59 07:59 15:59 Intake Total 100 / 100 105 / 105 240 / 240 Output Total 1315 / 1315 625 / 625 Balance -1215 / -1215 -520 / -520 240 / 240 Intake: IV Fluids 100 / 100 105 / 105 Heparin 25,000 UNIT/500 ML D5W 100 / 100 105 / 105 25,000 unit In 500 ml @ 12 UNIT /KG/HR 15.72 mls/hr IVC .Q24H [facility] Rx#:[id number] Oral 240 / 240 Output: Urine 1315 / 1315 625 / 625 Other: Meal Breakfast Percent of Meal Consumed 100% Weight 67 kg Blood Glucose* 123 116 Patient Weight 11/25/17 23:59 Weight 67 kg General: Conversant, No Apparent Distress HEENT: Atraumatic, Normocephaly, Mucus Membranes Moist Neck: Normal carotid pulses Cardiac: Reg Rate and Rhythm, Normal S1 and S2, No Murmur Lungs: Other (diminished) Neuro: Alert and responsive, No focal deficits noted Abdomen: Soft, Non-Tender Skin: No rashes noted on visualized skin Musculoskeletal: No Chest Wall Tenderness Extremities: No Clubbing, No Cyanosis, No Edema, Normal Pulses Results 11/25/17 04:54 11/25/17 04:54 Lab Results 11/25/17 11/25/17 11/25/17 04:54 04:54 04:54 WBC 19.0 H D Hgb 14.4 D Hct 44.6 Plt Count 140 APTT 95.4 H D Sodium 139 Potassium 4.6 Chloride 105 Carbon Dioxide 28 BUN 37 H Creatinine 1.16 Glucose 137 H Calcium 9.1 Magnesium 1.9 11/25/17 11:20 WBC Hgb Hct Plt Count APTT 40.8 H D Sodium Potassium Chloride Carbon Dioxide BUN Creatinine Glucose Calcium Magnesium Short CBC 11/25/17 Range/Units 04:54 WBC 19.0 H D (4.3-11.1) K/mcL Hgb 14.4 D (12.9-16.9) g/dL Hct 44.6 (37.5-50.1) % Plt Count 140 (140-400) K/mcL Neutrophils # 17.1 H (1.6-8.9) K/mcL BMP 11/25/17 Range/Units 04:54 Sodium 139 (136-145) mEq/L Potassium 4.6 (3.5-5.1) mEq/L Chloride 105 (98-107) mEq/L Carbon Dioxide 28 (23-29) mEq/L BUN 37 H (8-23) mg/dL Creatinine 1.16 (0.70-1.30) mg/dL Glucose 137 H (70-105) mg/dL Calcium 9.1 (8.6-10.3) mg/dL Impressions Echocardiogram 11/24/17 01:34 Impressions: LVEF 20-25%. Severe LV systolic dysfunction - appears global but views are angulated and not all segments are well visualized. Thrombus is not visualized in the LV apex - Definity was not used. Mild left ventricular diastolic dysfunction. Normal right ventricular structure and function. Mild-moderate aortic regurgitation. No pulmonary hypertension. Left Ventricular Wall Motion: Rest Echo Findings The apex, apical inferior, mid inferior, basal inferior, apical anterior, mid anterior, basal anterior, apical septal, mid inferior septal, basal inferior septal, apical lateral, mid anterior lateral and basal anterior lateral [email or web address] were hypokinetic. The mid anterior septal, mid inferior lateral, basal anterior septal and basal inferior lateral mcdonald were not visualized. Findings: Study Quality * Technically sub-optimal due to clinical status - angulated views. ECG Findings * Sinus tachycardia. Left Ventricle * LVEF 20-25%. * Normal LV size and wall thickness. * Mild left ventricular diastolic dysfunction. Right Ventricle * Normal right ventricular structure and function. Left Atrium * Normal left atrial size. Right Atrium * Normal right atrial size. Mitral Valve * Mild mitral annular calcification * No mitral stenosis. * Mildly thickened mitral valve leaflets. * Trace mitral regurgitation. Aortic Valve * Aortic valve not well visualized. * Mild-moderate aortic regurgitation. * No aortic stenosis. Tricuspid Valve * Trace tricuspid regurgitation. * Normal tricuspid valve structure. * No pulmonary hypertension. * Estimated RA pressure is 8 mmHg. * Estimated RVSP is 18 mmHg. Pulmonic Valve * Pulmonic valve is not well visualized. * No pulmonic stenosis. * No pulmonic regurgitation. Pulmonary Artery * Pulmonary artery not well visualized. Aorta * Normally sized aortic root. Pericardium * There is no pericardial effusion present. Interatrial Septum * No evidence of PFO by color Doppler. IVC * The IVC is dilated. * > 50% respiratory change Active Medications Albuterol/Ipratropium (Duoneb) 3 ml IH QIDR ARLETH Stop: 05/26/18 05:01 Last Admin: 11/25/17 11:22 Dose: 3 ml Albuterol/Ipratropium (Duoneb) 3 ml IH [id number] PRN PRN Reason: Shortness Of Breath/Wheezing Stop: 05/26/18 01:32 Aspirin (Aspirin Ec) 81 mg PO DAILY ARLETH Stop: 05/26/18 09:01 Last Admin: 11/25/17 08:15 Dose: 81 mg Atorvastatin Calcium (Lipitor) 80 mg PO HS ARLETH Stop: 05/26/18 08:46 Last Admin: 11/24/17 20:02 Dose: 80 mg Carvedilol (Coreg) 3.125 mg PO BIDWM ARLETH PRN Reason: Protocol Stop: 05/26/18 01:46 Last Admin: 11/25/17 08:15 Dose: 3.125 mg Dextrose/Water (Dextrose 50% (Syg)) 25 ml IVP AD PRN PRN Reason: Hypoglycemia Stop: 05/26/18 02:05 Furosemide (Lasix) 40 mg IVP DAILY [facility] Stop: 05/27/18 09:01 Last Admin: 11/25/17 08:14 Dose: 40 mg Glucagon (Glucagen) 1 mg IM ONCE PRN PRN Reason: Hypoglycemia Stop: 05/26/18 02:05 Glucose (Gluctose) 15 gm PO ONCE PRN PRN Reason: Hypoglycemia Stop: 05/26/18 02:05 Glucose (Gluctose) 30 gm PO ONCE PRN PRN Reason: Hypoglycemia Stop: 05/26/18 02:05 Heparin Sodium (Porcine) (Heparin) 3,900 unit 60 unit/kg (3900 unit) IVP Q6HR PRN PRN Reason: SEE COMMENTS Stop: 05/26/18 08:34 Last Admin: 11/24/17 23:06 Dose: 3,900 unit Heparin Sodium (Porcine) (Heparin) 2,000 unit 30 unit/kg (2000 unit) IVP Q6H PRN PRN Reason: SEE COMMENTS Stop: 05/26/18 08:34 Hydroxyzine HCl (Hydroxyzine) 10 mg PO TID PRN PRN Reason: Anxiety Stop: 05/26/18 09:59 Last Admin: 11/24/17 11:45 Dose: 10 mg Azithromycin 500 mg/ Dextrose 250 mls @ 252 mls/hr IVPB Q24H [facility] Stop: 05/26/18 09:01 Last Admin: 11/25/17 08:15 Dose: 252 mls/hr Dextrose (Dextrose 5%) 1,000 mls @ 100 mls/hr IVC .Q10H PRN PRN Reason: HYPOGLYCEMIA Stop: 05/26/18 02:05 Heparin Sodium/Dextrose (Heparin 25,000 Unit/500 Ml D5w) 25,000 unit in 500 mls @ 15.72 mls/hr IVC .Q24H ARLETH; 12 UNIT/KG/HR PRN Reason: Protocol Stop: 05/26/18 08:46 Last Titration: 11/25/17 06:18 Dose: 10 unit/kg/hr, 13.1 mls/hr Insulin Human Lispro (Humalog) 0 units SQ TIDAC ARLETH PRN Reason: Protocol Stop: 05/26/18 07:31 Last Admin: 11/25/17 11:31 Dose: Not Given Insulin Human Lispro (Humalog) 0 units SQ HS ARLETH PRN Reason: Protocol Stop: 05/26/18 21:01 Last Admin: 11/24/17 21:34 Dose: Not Given Lisinopril (Zestril) 5 mg PO DAILY ARLETH PRN Reason: Protocol Stop: 05/27/18 10:16 Last Admin: 11/25/17 11:31 Dose: 5 mg Methylprednisolone (Solu-Medrol) 40 mg IVP Q6HR [facility]LETH Stop: 05/26/18 06:01 Last Admin: 11/25/17 11:31 Dose: 40 mg Naloxone HCl (Narcan) 0.4 mg IVP Q2MIN PRN PRN Reason: SEE COMMENTS Stop: 05/26/18 01:27 Nitroglycerin (Nitroglycerin) 0.2 mg TD 0730 ARLETH Stop: 05/26/18 17:31 Last Admin: 11/25/17 08:15 Dose: 0.2 mg - Imaging and Cardiology Echo: report reviewed Cardiac cath: report reviewed - EKG Interpretation EKG results cardiology: other (12 hr tele AVG HR 92, no significant pauses) Consult Discharge Plan - Plan Referrals: Rosa Schwarz, SEAT COVERER [Advanced Practice Nurse] - 12/01/17 1:00 pm NONE,PCP [Primary Care Provider] -
[2017-11-25] MEDS: *HR* Heparin 5,000 UNIT/ML VIAL IVP PRN (13:19)
--- NOTE | 2017-11-25 13:32 | Internal Med Progress Note ---
<Zac Jacinto - Last Filed: 11/25/17 13:30> Date of Encounter: 11/25/17 Time of Encounter: 13:30 - Assessment and plan (1) NSTEMI (non-ST elevated myocardial infarction) Current Visit: Yes Status: Acute Assessment and plan: Patient's troponins are 0.05, 0.69, 3.00, 6.18 respectively. Continues to have chest tightness and worsening shortness of breath. EKG shows sinus tachycardia with Q waves in inferior leads. Patient on heparin GTT. Continue aspirin, statin, beta bev Echocardiogram LVEF of 20-25%, severe left ventricular systolic dysfunction, thrombus visualized. Left heart catheter revealed severe three-vessel disease. CT surgery consulted. (2) Acute exacerbation of CHF (congestive heart failure) Current Visit: Yes Status: Acute Assessment and plan: Acute CHF exacerbation. BNP 2047 Continue Lasix Continue cardiac diet. Fluid restrict to 2 L. Strict I's and O's. Qualifiers: Heart failure type: combined systolic and diastolic Qualified Code(s): I50.43 - Acute on chronic combined systolic (congestive) and diastolic ( congestive) heart failure (3) Community acquired pneumonia Current Visit: Yes Status: Suspected Assessment and plan: Patient presented with shortness of breath Patient is a long time tobacco abuser. Chest x-ray shows bilateral patchy mid and lower lung interstitial opacities possibly atypical pneumonia. Azithromycin day 2 Awaiting blood cultures, serologies Strep and legionella antigens negative. RIP panel negative Qualifiers: Laterality: unspecified laterality Qualified Code(s): J18.9 - Pneumonia, unspecified organism (4) Sepsis Current Visit: Yes Status: Resolved Assessment and plan: Leukocytosis, tachycardia, tachypnea, lactic acidosis Secondary to suspected pneumonia. Resolved Continue antibiotics. Awaiting blood cultures. Qualifiers: Sepsis type: sepsis due to unspecified organism Qualified Code(s): A41.9 - Sepsis, unspecified organism (5) Acid-base disorder, mixed Current Visit: Yes Status: Acute Assessment and plan: REspiratory acidosis with metabolic alkalosis 2nd to COPD Metabolic acidosis 2nd to lactic acidosis 2nd to NSTEMI in setting of MAGDY (6) Metabolic acidosis Current Visit: Yes Status: Acute Assessment and plan: as stated above. (7) COPD exacerbation Current Visit: Yes Status: Acute Assessment and plan: Smokes 1.25 PPD for many years continue O2, steroids, antibiotics (8) Tobacco abuse Current Visit: Yes Status: Acute Assessment and plan: Patient educated on benefits of tobacco cessation. - Subjective Interval history: Patient weaned off oxygen today. He denies headache, blurry vision, chest pain , palpitations, cough, sputum production. No acute events overnight. - Constitutional Vitals: Temp Pulse Resp BP Pulse Ox 98.4 F 92 16 123/75 93 11/25/17 11:33 11/25/17 11:33 11/25/17 11:33 11/25/17 11:33 11/25/17 11:33 - Other Additional findings: General: without distress Heart: Regular rate and rhythm with no murmur Lungs: Clear to auscultation bilaterally Abdomen: Soft nontender, nondistended positive bowel sounds Skin: warm and dry, right groin, small. Left groin intact. Extremities: Absent pedal edema, Neuro: Alert oriented 3 Vascular: Pedal and radial pulses 2 out of 4 Internal Medicine: Result - Labs CBC & Chem 7: 11/25/17 04:54 11/25/17 04:54 Labs: Short CBC 11/25/17 Range/Units 04:54 WBC 19.0 H D (4.3-11.1) K/mcL Hgb 14.4 D (12.9-16.9) g/dL Hct 44.6 (37.5-50.1) % Plt Count 140 (140-400) K/mcL Neutrophils # 17.1 H (1.6-8.9) K/mcL BMP 11/25/17 04:54 Sodium 139 Potassium 4.6 Chloride 105 Carbon Dioxide 28 BUN 37 H Creatinine 1.16 Glucose 137 H Calcium 9.1 - ABG Interpretation ABG results: PT/INR, D-dimer PT 11.5 Seconds (9.4-12.1) 11/24/17 08:46 - Impressions Impressions Echocardiogram 11/24/17 01:34 Impressions: LVEF 20-25%. Severe LV systolic dysfunction - appears global but views are angulated and not all segments are well visualized. Thrombus is not visualized in the LV apex - Definity was not used. Mild left ventricular diastolic dysfunction. Normal right ventricular structure and function. Mild-moderate aortic regurgitation. No pulmonary hypertension. Left Ventricular Wall Motion: Rest Echo Findings The apex, apical inferior, mid inferior, basal inferior, apical anterior, mid anterior, basal anterior, apical septal, mid inferior septal, basal inferior septal, apical lateral, mid anterior lateral and basal anterior lateral mcdonald were hypokinetic. The mid anterior septal, mid inferior lateral, basal anterior septal and basal inferior lateral mcdonald were not visualized. Findings: Study Quality * Technically sub-optimal due to clinical status - angulated views. ECG Findings * Sinus tachycardia. Left Ventricle * LVEF 20-25%. * Normal LV size and wall thickness. * Mild left ventricular diastolic dysfunction. Right Ventricle * Normal right ventricular structure and function. Left Atrium * Normal left atrial size. Right Atrium * Normal right atrial size. Mitral Valve * Mild mitral annular calcification * No mitral stenosis. * Mildly thickened mitral valve leaflets. * Trace mitral regurgitation. Aortic Valve * Aortic valve not well visualized. * Mild-moderate aortic regurgitation. * No aortic stenosis. Tricuspid Valve * Trace tricuspid regurgitation. * Normal tricuspid valve structure. * No pulmonary hypertension. * Estimated RA pressure is 8 mmHg. * Estimated RVSP is 18 mmHg. Pulmonic Valve * Pulmonic valve is not well visualized. * No pulmonic stenosis. * No pulmonic regurgitation. Pulmonary Artery * Pulmonary artery not well visualized. Aorta * Normally sized aortic root. Pericardium * There is no pericardial effusion present. Interatrial Septum * No evidence of PFO by color Doppler. IVC * The IVC is dilated. * > 50% respiratory change Consult Discharge Plan - Plan Referrals: Rosa Schwarz [employer] CHIEF [Advanced Practice Nurse] - 12/01/17 1:00 pm NONE,PCP [Primary Care Provider] - <Nestor Vargas - Last Filed: 11/25/17 16:32> Date of Encounter: 11/25/17 - Constitutional Vitals: Temp Pulse Resp BP Pulse Ox 98.4 F 92 16 123/75 93 11/25/17 11:33 11/25/17 11:33 11/25/17 16:23 11/25/17 11:33 11/25/17 16:23 Internal Medicine: Result - Labs CBC & Chem 7: 11/25/17 04:54 11/25/17 04:54 Labs: Short CBC 11/25/17 Range/Units 04:54 WBC 19.0 H D (4.3-11.1) K/mcL Hgb 14.4 D (12.9-16.9) g/dL Hct 44.6 (37.5-50.1) % Plt Count 140 (140-400) K/mcL Neutrophils # 17.1 H (1.6-8.9) K/mcL BMP 11/25/17 04:54 Sodium 139 Potassium 4.6 Chloride 105 Carbon Dioxide 28 BUN 37 H Creatinine 1.16 Glucose 137 H Calcium 9.1 - ABG Interpretation ABG results: PT/INR, D-dimer PT 11.5 Seconds (9.4-12.1) 11/24/17 08:46 - Impressions Impressions Echocardiogram 11/24/17 01:34 Impressions: LVEF 20-25%. Severe LV systolic dysfunction - appears global but views are angulated and not all segments are well visualized. Thrombus is not visualized in the LV apex - Definity was not used. Mild left ventricular diastolic dysfunction. Normal right ventricular structure and function. Mild-moderate aortic regurgitation. No pulmonary hypertension. Left Ventricular Wall Motion: Rest Echo Findings The apex, apical inferior, mid inferior, basal inferior, apical anterior, mid anterior, basal anterior, apical septal, mid inferior septal, basal inferior septal, apical lateral, mid anterior lateral and basal anterior lateral mcdonald were hypokinetic. The mid anterior septal, mid inferior lateral, basal anterior septal and basal inferior lateral mcdonald were not visualized. Findings: Study Quality * Technically sub-optimal due to clinical status - angulated views. ECG Findings * Sinus tachycardia. Left Ventricle * LVEF 20-25%. * Normal LV size and wall thickness. * Mild left ventricular diastolic dysfunction. Right Ventricle * Normal right ventricular structure and function. Left Atrium * Normal left atrial size. Right Atrium * Normal right atrial size. Mitral Valve * Mild mitral annular calcification * No mitral stenosis. * Mildly thickened mitral valve leaflets. * Trace mitral regurgitation. Aortic Valve * Aortic valve not well visualized. * Mild-moderate aortic regurgitation. * No aortic stenosis. Tricuspid Valve * Trace tricuspid regurgitation. * Normal tricuspid valve structure. * No pulmonary hypertension. * Estimated RA pressure is 8 mmHg. * Estimated RVSP is 18 mmHg. Pulmonic Valve * Pulmonic valve is not well visualized. * No pulmonic stenosis. * No pulmonic regurgitation. Pulmonary Artery * Pulmonary artery not well visualized. Aorta * Normally sized aortic root. Pericardium * There is no pericardial effusion present. Interatrial Septum * No evidence of PFO by color Doppler. IVC * The IVC is dilated. * > 50% respiratory change - Attending Attestation I performed a [id number] diagnostic evaluation of this patient and my medical decision-making was reviewed with the Resident Physician, Dr Zac Jacinto. I agree with the documented findings, disposition and treatment plan as described except to the extent set forth below. Patient denies chest pain. On exam he is in no acute distress. Heart is regular with normal S1-S2 and no murmurs. Lungs sounds are diminished bilaterally, no adventitious sounds. Plan: Continue aspirin, beta bev and heparin drip. Follow-up with cardiology and CT surgery regarding definitive revascularization plan. He is at high risk for morbidity mortality and complications due to IV heparin requiring intensive blood work monitoring of coagulation parameters. Nestor Vargas MD
--- NOTE | 2017-11-25 15:06 | Cardiothoracic Consult Note ---
Date of Encounter: 11/25/17 Time of Encounter: 15:00 Assessment and Plan (1) NSTEMI (non-ST elevated myocardial infarction) Current Visit: Yes Status: Acute The assessment and plan as outlined above was discussed with the patient and/or family members who expressed understanding and agreement. All questions were answered. The patient has decreased ventricular function with triple vessel disease. I discussed possible coronary artery bypass grafting with him. The circumflex and LAD appear graftable, but they are diffusely diseased. The right coronary artery may or may not be graftable. He would be at increased risk for surgery because of his decreased ventricular function. He also appears to have severe peripheral arterial disease. He would need to be off Plavix for 1 week. Presently, he needs treatment of his congestive heart failure and presumed pneumonia. A transthoracic echocardiogram may be valuable to assess LV function and better assess the aortic valve. At present, the patient is strongly against surgery and prefers to start with medical therapy and/or PTCA with stent. I feel that he can be discharged to make up his mind. He does have my office phone number and if he decides on surgery can call and make an appointment. At this point, he has no questions. - History of Present Illness History of present illness: Mr. Abrams is a 67 year old male The patient is a 67-year-old gentleman who presented with shortness of breath and dyspnea on exertion. No real history of chest pain. He states that he has had some ankle swelling. BNP upon admission was 2048. His lactic acid was elevated. Chest x-ray revealed pulmonary edema. White blood cell count is elevated to 19,000 and he is being treated for pneumonia. He did have a positive troponin which has gone up to 6.18. He did receive a Plavix load. Echocardiogram revealed decreased ejection fraction of 20-25%. It also revealed mild to moderate aortic valve regurgitation. 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 It does fill by collaterals, but may or may not be graftable. The LAD had a 80% block and was diffusely diseased. The obtuse marginal branch of the circumflex was 90% blocked and was also diffusely diseased. Both the circumflex and LAD appear to be graftable, but do have diffuse disease. Past medical history is notable for COPD. He is not on oxygen at home and has not seen a physician in 25 years. He also presumably has hypertension. He was only on an occasional aspirin prior to admission. No known allergies. Family history is strongly positive for coronary artery disease. Social history. He lives in [place]. He is retired from the paper factory. He smokes 1-1/4 packs of cigarettes per day. Occasionally drinks beer. Review of systems is negative for saphenous vein strippings or varicosities. No history of stroke or TIA. He does get bilateral claudication with exertion that is worse in the right leg. It starts in the back of the leg and goes down to the calf. Cardiac catheterization did reveal severe iliac disease bilaterally. Past Med Surg Social Fam HX - Past Medical History Medical history: COPD Psychiatric history: no psych history - Past Surgical History Surgical History: no surgical history - Social History Smoking Status: Current every day smoker Smokeless Tobacco Status: No Alcohol use: occasionally Drug use: none Medications and Allergies No Known Home Drugs 11/23/17 [History] 3 Allergy/AdvReac Type Severity Reaction Status Date / Time No Known Allergies Allergy Verified 11/24/17 08:43 All Systems Review: The remainder of the systems were reviewed and are negative Physical Examination Vital Signs, Last 4 Hours Temp Pulse Resp BP Pulse Ox 11/25/17 11:33 98.4 F 92 16 123/75 93 11/25/17 11:23 15 93 Pupils are equal, round and reactive to light and accommodation. His teeth are in poor repair. Neck is supple. Trachea in the midline. No thyromegaly or carotid bruits. Lungs are clear to percussion and auscultation. Heart is in a regular rate and rhythm. There is a 2/6 diastolic murmur. Abdomen is benign. No tenderness, rebound or guarding. Extremities without edema. No saphenous vein varicosities or strippings. Cranial nerves, motor and sensory intact. Results 11/25/17 04:54 11/25/17 04:54 Lab Results, Last 24 hours 11/25/17 11/25/17 11/25/17 04:54 04:54 04:54 WBC 19.0 H D Hgb 14.4 D Hct 44.6 Plt Count 140 APTT 95.4 H D Sodium 139 Potassium 4.6 Chloride 105 Carbon Dioxide 28 BUN 37 H Creatinine 1.16 Glucose 137 H Calcium 9.1 Magnesium 1.9 11/25/17 11:20 WBC Hgb Hct Plt Count APTT 40.8 H D Sodium Potassium Chloride Carbon Dioxide BUN Creatinine Glucose Calcium Magnesium Consult Discharge Plan - Plan Referrals: Rosa Schwarz, MARTA [Advanced Practice Nurse] - 12/01/17 1:00 pm NONE,PCP [Primary Care Provider] -
[2017-11-25] MEDS ORDERED: Perflutren Lipid Microsphere 1.3 ML in 0.9 % Sodium Chloride 8.7 ML IVP ONE (18:31)
--- NOTE | 2017-11-25 19:44 | Electrocardiograph Report ---
[place] [id number] Test Date: 2017-11-24 Pat Name: Phillip Abrams Department: 110 Room: 2N10 Gender: M Cat Breeder: HARPREET : 1950 Requested By: Franck Rainey Order Number: [id number] Reading MD: Hugh Davis MD Measurements Intervals [place] Rate: 108 P: 81 NE: 177 QRS: -52 QRSD: 102 T: 114 QT: 359 QTc: 422 Interpretive Statements SINUS TACHYCARDIA LEFT ANTERIOR FASCICULAR BLOCK LEFT VENTRICULAR HYPERTROPHY AND ST-T CHANGE INFERIOR MYOCARDIAL INFARCTION, PROBABLY OLD BASELINE ARTIFACT Poor R wave progression Electronically Signed On 11-25-2017 19:43:23 EDT by Hugh Davis MD
--- NOTE | 2017-11-25 23:12 | Event Note ---
Date of Encounter: 11/25/17 Time of Encounter: 22:21 Alerted by pts. nurse that pt. had passed a black, tarry stool. Pt. is post- heart catheterization yesterday w/o intervention and is currently on a heparin drip. Stat fecal hemoccult of stool sample ordered which returned positive. Hgb 18.3 and Hgb 56.8 on 11/23, 16.0 and 49.1 on 11/24, and 14.4 and 44.6 on 11/25. Will trend timed H/H. Cardiology consulted and discussed situation w/Dr. Jesus w/recommendation to stop heparin drip and I appreciate your directives. Stop order placed. Protonix drip ordered to begin now. Pt. is already to be NPO at midnight. GI consult ordered and discussed w/Dr. Quintana w/recommendation to monitor H/H and begin Protonix drip so GI can see pt. tomorrow to begin bowel prep for EGD and colonoscopy. I appreciate the consult and recommendations. According to records from all visits, pt. has not had recent EGD or colonoscopy done through [facility]. GI plan is to start bowel prep tomorrow to prepare pt. for scoping. Current VS: temp 98.3F, HR 91, RR 19, BP 115/63, SpO2 93% on 2L via NC. Will continue to monitor I&O and pt. overnight for signs of continued melanotic stool(s) or active bleeding.
[2017-11-25] MEDS: Pantoprazole 40 MG in 0.9 % Sodium Chloride Mini Bag 100 ML IVC SCH (23:51)
[2017-11-26 00:27] LABS: Hematocrit 35.8 % (37.5-50.1)
[2017-11-26 00:29] LABS: Hemoglobin 12.2 g/dL (12.9-16.9)
[2017-11-26] MEDS: Pantoprazole 40 MG in 0.9 % Sodium Chloride Mini Bag 100 ML IVC SCH ×3 (04:21→14:06)
[2017-11-26] MEDS: Ipratropium/Albuterol Neb 3 ML IH SCH ×4 (04:22→22:18)
[2017-11-26 04:29] LABS: Mycoplasma pneumoniae IgG 0.18 U/L (<=0.09)
[2017-11-26 04:30] LABS: Basophils % 0.1 %; Hematocrit 36.5 % (37.5-50.1); Hemoglobin 12.3 g/dL (12.9-16.9); Immature Granulocytes % 0.6 % (0-4); Lymphocytes # 0.7 K/mcL (0.6-4.6); Lymphocytes % 4.9 %; Mean Corpuscular HGB Conc 33.7 g/dL (31.6-35.5); Mean Corpuscular Hemoglobin 31.4 pg (28.0-33.3); Mean Corpuscular Volume 93.1 fL (83.0-100.0); Mean Platelet Volume 11.8 fL (9.4-12.4); Monocytes # 0.9 K/mcL (0.0-1.3); Monocytes % 6.2 %; Neutrophils # 12.5 K/mcL (1.6-8.9); Platelet Count 116 K/mcL (140-400); Red Blood Count 3.92 M/mcL (4.19-5.50); Red Cell Distribution Width 13.2 % (11.5-14.5); Segmented Neutrophils % 88.2 %
[2017-11-26 04:37] LABS: BUN/Creatinine Ratio 48 (6-26); Blood Urea Nitrogen 48 mg/dL (8-23); Calcium 8.6 mg/dL (8.6-10.3); Carbon Dioxide 31 mEq/L (23-29); Chloride 105 mEq/L (98-107); Glucose 127 mg/dL (70-105); Magnesium 1.9 mg/dL (1.6-2.6); Osmolality,Calculated 302 (280-300); Sodium 139 mEq/L (136-145); eGFR For African Americans > 60 (> 60); eGFR For Non-African Americans > 60 (> 60)
[2017-11-26] MEDS: Nitroglycerin 0.2 MG PATCH.TD24 TD SCH (07:23)
[2017-11-26] MEDS: Azithromycin 500 MG in D5% in Water 250 ML IVPB SCH (07:24)
[2017-11-26] MEDS: Furosemide 40 MG/4 ML VIAL IVP SCH (07:26)
[2017-11-26] MEDS: Insulin LISPRO 300 UNITS/3 ML VIAL SQ SCH ×4 (07:26→21:32)
[2017-11-26] MEDS ORDERED: predniSONE 20 MG TABLET PO SCH (09:00)
--- NOTE | 2017-11-26 09:29 | Cardiothoracic Progress Note ---
Date of Encounter: 11/26/17 Time of Encounter: 09:27 - Assessment and plan (1) NSTEMI (non-ST elevated myocardial infarction) Current Visit: Yes Status: Acute The patient is breathing prepared for upper and lower endoscopy. His heparin drip has been stopped. At some point, GERSON would be useful to assess his LV function and look at his aortic valve. - Subjective Interval history: The patient has had no chest pain and no angina. He did have melena last night and his hemoglobin dropped 4 points. Vital Signs, Last 4 Hours Temp Pulse Resp BP Pulse Ox 11/26/17 08:00 83 11/26/17 07:19 97.8 F 83 18 116/76 91 Oxgyen Flow Rate Oxygen Flow Rate (LPM) 2 Clinical Data, last 8 Hours Output, Urine Amount 300 Output, Urine Amount 225 Weight 11/24/17 11/25/17 11/26/17 23:59 23:59 23:59 Weight 65.499 kg 67 kg 63.1 kg Lungs are clear to percussion and auscultation. Heart is in a normal sinus rhythm. - Labs 11/26/17 03:30 11/26/17 03:30 Lab Results, Last 24 hours 11/25/17 11/25/17 11/26/17 11:20 20:13 00:03 WBC Hgb 12.2 L D Hct 35.8 L Plt Count APTT 40.8 H D 56.0 H Sodium Potassium Chloride Carbon Dioxide BUN Creatinine Glucose Calcium Magnesium 11/26/17 11/26/17 03:30 03:30 WBC 14.2 H Hgb 12.3 L Hct 36.5 L Plt Count 116 L APTT Sodium 139 Potassium 4.0 Chloride 105 Carbon Dioxide 31 H BUN 48 H Creatinine 1.00 Glucose 127 H Calcium 8.6 Magnesium 1.9 Consult Discharge Plan - Plan Referrals: Rosa Schwarz CNP [Advanced Practice Nurse] - 12/01/17 1:00 pm NONE,PCP [Primary Care Provider] -
--- NOTE | 2017-11-26 10:14 | Internal Med Progress Note ---
<Zac Jacinto - Last Filed: 11/26/17 10:11> Date of Encounter: 11/26/17 Time of Encounter: 10:11 - Assessment and plan (1) NSTEMI (non-ST elevated myocardial infarction) Current Visit: Yes Status: Acute Assessment and plan: Patient's troponins are 0.05, 0.69, 3.00, 6.18 respectively. Continues to have chest tightness and worsening shortness of breath. EKG shows sinus tachycardia with Q waves in inferior leads. Continue statin, beta bev Echocardiogram LVEF of 20-25%, severe left ventricular systolic dysfunction, thrombus visualized. Left heart catheterization revealed severe three-vessel disease. CT surgery consulted: patient at this time not considering CABG black stool overnight: heparin and aspirin stopped. GI consulted and will have EGD today. (2) Acute exacerbation of CHF (congestive heart failure) Current Visit: Yes Status: Acute Assessment and plan: Acute CHF exacerbation. BNP 8 Continue Lasix Continue cardiac diet. Fluid restrict to 2 L. Strict I's and O's. Qualifiers: Heart failure type: combined systolic and diastolic Qualified Code(s): I50.43 - Acute on chronic combined systolic (congestive) and diastolic ( congestive) heart failure (3) Community acquired pneumonia Current Visit: Yes Status: Suspected Assessment and plan: Patient presented with shortness of breath Patient is a long time tobacco abuser. Chest x-ray shows bilateral patchy mid and lower lung interstitial opacities possibly atypical pneumonia. Azithromycin day 3 Awaiting blood cultures, serologies Strep and legionella antigens negative. RIP panel negative Qualifiers: Laterality: unspecified laterality Qualified Code(s): J18.9 - Pneumonia, unspecified organism (4) Sepsis Current Visit: Yes Status: Resolved Assessment and plan: Leukocytosis, tachycardia, tachypnea, lactic acidosis Secondary to suspected pneumonia. Resolved Continue antibiotics. Awaiting blood cultures. Qualifiers: Sepsis type: sepsis due to unspecified organism Qualified Code(s): A41.9 - Sepsis, unspecified organism (5) COPD exacerbation Current Visit: Yes Status: Acute Assessment and plan: Smokes 1.25 PPD for many years continue O2, steroids, antibiotics (6) Tobacco abuse Current Visit: Yes Status: Acute Assessment and plan: Patient educated on benefits of tobacco cessation. (7) GI bleed Current Visit: Yes Status: Acute Assessment and plan: 3 BM with black stool hgb stable on pantoprazole drip GI consulted EGD today heparin aspirin d/c Qualifiers: GI bleed type/associated pathology: unspecified gastrointestinal hemorrhage type Qualified Code(s): K92.2 - Gastrointestinal hemorrhage, unspecified - Subjective Interval history: Overnight patient had multiple bowel movements that were black. Cardiology was called by night team and hyper drip was discontinued. Patient was started on pantoprazole GTT. Plan is to undergo EGD today. This morning patient has no complaints. He denies headache, blurry vision, chest pain, shortness of breath , lower extremity edema. - Constitutional Vitals: Temp Pulse Resp BP Pulse Ox 97.8 F 83 18 116/76 91 11/26/17 07:19 11/26/17 08:00 11/26/17 07:19 11/26/17 07:19 11/26/17 07:19 - Other Additional findings: General: without distress Heart: Regular rate and rhythm with no murmur Lungs: Clear to auscultation bilaterally Abdomen: Soft nontender, nondistended positive bowel sounds Skin: warm and dry, right and Left groin intact. Extremities: Absent pedal edema, Neuro: Alert oriented 3 Vascular: Pedal and radial pulses 2 out of 4 Internal Medicine: Result - Labs CBC & Chem 7: 11/26/17 03:30 11/26/17 03:30 Labs: Short CBC 11/26/17 11/26/17 Range/Units 00:03 03:30 WBC 14.2 H (4.3-11.1) K/mcL Hgb 12.2 L D 12.3 L (12.9-16.9) g/dL Hct 35.8 L 36.5 L (37.5-50.1) % Plt Count 116 L (140-400) K/mcL Neutrophils # 12.5 H (1.6-8.9) K/mcL BMP 11/26/17 03:30 Sodium 139 Potassium 4.0 Chloride 105 Carbon Dioxide 31 H BUN 48 H Creatinine 1.00 Glucose 127 H Calcium 8.6 - ABG Interpretation ABG results: PT/INR, D-dimer PT 11.5 Seconds (9.4-12.1) 11/24/17 08:46 - Impressions Impressions Echocardiogram 11/24/17 01:34 Impressions: LVEF 20-25%. Severe LV systolic dysfunction - appears global but views are angulated and not all segments are well visualized. Thrombus is not visualized in the LV apex - Definity was not used. Mild left ventricular diastolic dysfunction. Normal right ventricular structure and function. Mild-moderate aortic regurgitation. No pulmonary hypertension. Left Ventricular Wall Motion: Rest Echo Findings The apex, apical inferior, mid inferior, basal inferior, apical anterior, mid anterior, basal anterior, apical septal, mid inferior septal, basal inferior septal, apical lateral, mid anterior lateral and basal anterior lateral mcdonald were hypokinetic. The mid anterior septal, mid inferior lateral, basal anterior septal and basal inferior lateral mcdonald were not visualized. Findings: Study Quality * Technically sub-optimal due to clinical status - angulated views. ECG Findings * Sinus tachycardia. Left Ventricle * LVEF 20-25%. * Normal LV size and wall thickness. * Mild left ventricular diastolic dysfunction. Right Ventricle * Normal right ventricular structure and function. Left Atrium * Normal left atrial size. Right Atrium * Normal right atrial size. Mitral Valve * Mild mitral annular calcification * No mitral stenosis. * Mildly thickened mitral valve leaflets. * Trace mitral regurgitation. Aortic Valve * Aortic valve not well visualized. * Mild-moderate aortic regurgitation. * No aortic stenosis. Tricuspid Valve * Trace tricuspid regurgitation. * Normal tricuspid valve structure. * No pulmonary hypertension. * Estimated RA pressure is 8 mmHg. * Estimated RVSP is 18 mmHg. Pulmonic Valve * Pulmonic valve is not well visualized. * No pulmonic stenosis. * No pulmonic regurgitation. Pulmonary Artery * Pulmonary artery not well visualized. Aorta * Normally sized aortic root. Pericardium * There is no pericardial effusion present. Interatrial Septum * No evidence of PFO by color Doppler. IVC * The IVC is dilated. * > 50% respiratory change Consult Discharge Plan - Plan Referrals: Rosa Schwarz [employer] TWISTING MACHINE OPERATOR [Advanced Practice Nurse] - 12/01/17 1:00 pm NONE,PCP [Primary Care Provider] - <Nestor Vargas - Last Filed: 11/26/17 15:44> Date of Encounter: 11/26/17 - Constitutional Vitals: Temp Pulse Resp BP Pulse Ox 98 F 81 14 111/68 93 11/26/17 13:00 11/26/17 13:00 11/26/17 13:00 11/26/17 13:00 11/26/17 13:00 Internal Medicine: Result - Labs CBC & Chem 7: 11/26/17 03:30 11/26/17 03:30 Labs: Short CBC 11/26/17 11/26/17 Range/Units 00:03 03:30 WBC 14.2 H (4.3-11.1) K/mcL Hgb 12.2 L D 12.3 L (12.9-16.9) g/dL Hct 35.8 L 36.5 L (37.5-50.1) % Plt Count 116 L (140-400) K/mcL Neutrophils # 12.5 H (1.6-8.9) K/mcL BMP 11/26/17 03:30 Sodium 139 Potassium 4.0 Chloride 105 Carbon Dioxide 31 H BUN 48 H Creatinine 1.00 Glucose 127 H Calcium 8.6 - ABG Interpretation ABG results: PT/INR, D-dimer PT 11.5 Seconds (9.4-12.1) 11/24/17 08:46 - Impressions Impressions Echocardiogram Limited Views 11/25/17 13:23 Impressions: LVEF 30%. Not all LV wall segments were well visualized. However, overall LV systolic dysfunction appears global. There is no LV thrombus. Definity echo contrast was used. Normal right ventricular structure and function. Left Ventricular Wall Motion: Rest Echo Findings The apex, apical inferior, mid inferior, basal inferior, apical anterior, mid anterior, basal anterior, apical septal, mid inferior septal, basal inferior septal, apical lateral, mid anterior lateral and basal anterior lateral mcdonald were hypokinetic. The mid anterior septal, mid inferior lateral, basal anterior septal and basal inferior lateral mcdonald were not visualized. Findings: Study Quality * Technically adequate exam. ECG Findings * Normal sinus rhythm. Left Ventricle * LVEF 30%. * There is no LV thrombus. * Definity echo contrast was used. Right Ventricle * Normal right ventricular structure and function. - Attending Attestation I performed a [id number] diagnostic evaluation of this patient and my medical decision-making was reviewed with the Resident Physician, Dr Zac Jacinto. I agree with the documented findings, disposition and treatment plan as described except to the extent set forth below. Patient denies chest pain. Denies shortness of breath. Last night he had an episode of melena he was started on Protonix GI was consulted for EGD. Patient is awake alert oriented 3. Heart is regular with normal S1-S2, no murmurs. Lungs are clear. Plan: EGD this afternoon, possible colonoscopy tomorrow. I have discussed the options of possible open-heart surgery versus DEBORA with the patient. We will follow up with cardiology and CT surgery. The patient is very concerned about not being able to afford paying for his medications due to not having a medication insurance plan. We will consult social work. Nestor Vargas MD
--- NOTE | 2017-11-26 10:39 | Cardiology Progress Note ---
Date of Encounter: 11/26/17 Time of Encounter: 10:37 Assessment and Plan (1) NSTEMI (non-ST elevated myocardial infarction) Current Visit: Yes Status: Acute Troponin 0.05, 0.69, 3.00, 6.18. EKG sinus tach, evidence of inferior FL. Statin, BB. Pt was Plavix loaded with 300mg. Add Imdur 30mg daily. LHC revealed severe three vessel CAD. Collateral vessels from LCA to right PDA that are visualized. No intervention was performed. 50% mLAD, 70% distal LAD, 70 % apical LAD, 90% distal LCx and 99% 1st marginal--both diffusely diseased. 70% pRCA, 80% mLAD, 100% distal RCA. TTE resulted--LVEF 20-25%. Severe LV systolic dysfunction - appears global but views are angulated and not all segments are well visualized. Thrombus is not visualized in the LV apex - Definity was not used. Mild left ventricular diastolic dysfunction. Normal right ventricular structure and function. Mild- moderate aortic regurgitation. No pulmonary hypertension. Repeated limited TTE to evaluate for LV thrombus--no thrombus visualized. Evaluated yesterday by CT surgery, who felt CABG would be reasonable. However, pt refuses at this time. Now with GI bleed, HGB drop. Will not start daily Plavix. ASA was stopped by primary team. Recommend resuming 81mg ASA daily once safe from GI standpoint. If pt opts for CABG, will need GERSON prior to further evaluate AV--mild-moderate AR on TTE. Cardiology signing off. Reconsult PRN. Will coordinate outpt follow. Outpt follow-up with CT surgery as well. (2) Acute exacerbation of CHF (congestive heart failure) Current Visit: Yes Status: Acute Acute systolic CHF exacerbation. BNP 2047. TTE EF 20-25%. Was on IV Lasix 40mg daily, transitioned to PO Lasix 40mg daily. Appears euvolemic on exam. Recommend 2L fluid restriction, daily weights, Na and fluid restriction. Qualifiers: Heart failure type: combined systolic and diastolic Qualified Code(s): I50.43 - Acute on chronic combined systolic (congestive) and diastolic ( congestive) heart failure (3) Ischemic cardiomyopathy Current Visit: Yes Status: Acute EF 20-25% on TTE. [facility] with severe [address] surgery consulted, pt refuses CABG. Continue BB, ACEi, Lasix. Discussion w patient/family: The assessment and plan as outlined above was discussed with the patient and/or family members who expressed understanding and agreement. All questions were answered. Thank you for involving us in the care of your patient. Please call with any questions. I will discuss all the above with Dr. Jessu and make changes as necessary. Subjective Principal diagnosis: NSTEMI, CAD, CHF Interval history: Seen and evaluated by CT surgery yesterday. At this point, pt is refusing CABG. Yesterday pt had 2 episodes of bloody diarrhea, per pt. Heparin gtt stopped, currently on Protonix gtt. Denies chest pain. Dyspnea has improved. Limited TTE resulted--no LV thrombus. EF 30%. Objective Vital Signs, Last 4 Hours Temp Pulse Resp BP Pulse Ox 11/26/17 08:00 83 11/26/17 07:19 97.8 F 83 18 116/76 91 Vital Signs Temp Pulse Resp BP Pulse Ox 11/26/17 08:00 83 11/26/17 07:19 97.8 F 83 18 116/76 91 11/26/17 03:46 97.6 F 83 21 121/65 96 11/25/17 23:29 98.3 F 91 19 115/63 93 11/25/17 22:41 16 92 11/25/17 21:00 87 11/25/17 18:50 97.5 F L 89 16 102/57 92 11/25/17 16:31 89 16 117/65 98 11/25/17 16:23 16 93 11/25/17 11:33 98.4 F 92 16 123/75 93 11/25/17 11:23 15 93 Intake and Output 11/25/17 11/26/17 11/26/17 23:59 07:59 15:59 Intake Total 240 / 240 100 / 100 350 / 350 Output Total 525 / 525 700 / 700 Balance 240 / 240 -425 / -425 -350 / -350 Intake: IV Fluids 100 / 100 350 / 350 Protonix 40 MG In 0.9 % Sodium 100 / 100 100 / 100 Chloride (Mini-Bag +) 100 ML @ 20 mls/hr IVC .Q5H [facility] Rx#: [id number] Zithromax 500 mg In Dextrose 5% 250 / 250 250 ML @ 252 mls/hr IVPB Q24H [facility] Rx#:[id number] Oral 240 / 240 Output: Urine 525 / 525 700 / 700 Other: Meal Dinner Percent of Meal Consumed 100% Stool Size Small Stool Consistency liquid Stool Characteristics [place] Normal for Patient Stool Color Black # Voids 1 # Bowel Movements 1 Weight 63.1 kg Blood Glucose* 161 116 Patient Weight 11/26/17 23:59 Weight 63.1 kg General: Conversant, No Apparent Distress HEENT: Atraumatic, Normocephaly, Mucus Membranes Moist Neck: Normal carotid pulses Cardiac: Reg Rate and Rhythm, Normal S1 and S2, No Murmur Lungs: Normal Breath Sounds, No Wheeze, Rales, Rhonchi Neuro: Alert and responsive, No focal deficits noted Abdomen: Soft, Non-Tender Skin: No rashes noted on visualized skin Musculoskeletal: No Chest Wall Tenderness Extremities: No Clubbing, No Cyanosis, No Edema, Normal Pulses Results 11/26/17 03:30 11/26/17 03:30 Lab Results 11/25/17 11/25/17 11/26/17 11:20 20:13 00:03 WBC Hgb 12.2 L D Hct 35.8 L Plt Count APTT 40.8 H D 56.0 H Sodium Potassium Chloride Carbon Dioxide BUN Creatinine Glucose Calcium Magnesium 11/26/17 11/26/17 03:30 03:30 WBC 14.2 H Hgb 12.3 L Hct 36.5 L Plt Count 116 L APTT Sodium 139 Potassium 4.0 Chloride 105 Carbon Dioxide 31 H BUN 48 H Creatinine 1.00 Glucose 127 H Calcium 8.6 Magnesium 1.9 Short CBC 11/26/17 11/26/17 Range/Units 03:30 00:03 WBC 14.2 H (4.3-11.1) K/mcL Hgb 12.3 L 12.2 L D (12.9-16.9) g/dL Hct 36.5 L 35.8 L (37.5-50.1) % Plt Count 116 L (140-400) K/mcL Neutrophils # 12.5 H (1.6-8.9) K/mcL BMP 11/26/17 Range/Units 03:30 Sodium 139 (136-145) mEq/L Potassium 4.0 (3.5-5.1) mEq/L Chloride 105 (98-107) mEq/L Carbon Dioxide 31 H (23-29) mEq/L BUN 48 H (8-23) mg/dL Creatinine 1.00 (0.70-1.30) mg/dL Glucose 127 H (70-105) mg/dL Calcium 8.6 (8.6-10.3) mg/dL Impressions Echocardiogram Limited Views 11/25/17 13:23 Impressions: LVEF 30%. Not all LV wall segments were well visualized. However, overall LV systolic dysfunction appears global. There is no LV thrombus. Definity echo contrast was used. Normal right ventricular structure and function. Left Ventricular Wall Motion: Rest Echo Findings The apex, apical inferior, mid inferior, basal inferior, apical anterior, mid anterior, basal anterior, apical septal, mid inferior septal, basal inferior septal, apical lateral, mid anterior lateral and basal anterior lateral mcdonald were hypokinetic. The mid anterior septal, mid inferior lateral, basal anterior septal and basal inferior lateral mcdonald were not visualized. Findings: Study Quality * Technically adequate exam. ECG Findings * Normal sinus rhythm. Left Ventricle * LVEF 30%. * There is no LV thrombus. * Definity echo contrast was used. Right Ventricle * Normal right ventricular structure and function. Active Medications Albuterol/Ipratropium (Duoneb) 3 ml IH QIDR [facility] Stop: 05/26/18 05:01 Last Admin: 11/26/17 04:22 Dose: Not Given Albuterol/Ipratropium (Duoneb) 3 ml IH [id number] PRN PRN Reason: Shortness Of Breath/Wheezing Stop: 05/26/18 01:32 Atorvastatin Calcium (Lipitor) 80 mg PO HS [facility] Stop: 05/26/18 08:46 Last Admin: 11/25/17 21:26 Dose: 80 mg Carvedilol (Coreg) 3.125 mg PO BIDWM [facility] PRN Reason: Protocol Stop: 05/26/18 01:46 Last Admin: 11/26/17 07:22 Dose: 3.125 mg Dextrose/Water (Dextrose 50% (Syg)) 25 ml IVP AD PRN PRN Reason: Hypoglycemia Stop: 05/26/18 02:05 Furosemide (Lasix) 40 mg PO DAILY [facility] Stop: 05/29/18 09:01 Glucagon (Glucagen) 1 mg IM ONCE PRN PRN Reason: Hypoglycemia Stop: 05/26/18 02:05 Glucose (Gluctose) 15 gm PO ONCE PRN PRN Reason: Hypoglycemia Stop: 05/26/18 02:05 Glucose (Gluctose) 30 gm PO ONCE PRN PRN Reason: Hypoglycemia Stop: 05/26/18 02:05 Hydroxyzine HCl (Hydroxyzine) 10 mg PO TID PRN PRN Reason: Anxiety Stop: 05/26/18 09:59 Last Admin: 11/24/17 11:45 Dose: 10 mg Azithromycin 500 mg/ Dextrose 250 mls @ 252 mls/hr IVPB Q24H [facility] Stop: 05/26/18 09:01 Last Infusion: 11/26/17 08:24 Dose: Infused Dextrose (Dextrose 5%) 1,000 mls @ 100 mls/hr IVC .Q10H PRN PRN Reason: HYPOGLYCEMIA Stop: 05/26/18 02:05 Pantoprazole Sodium 40 mg/ (Sodium Chloride) 100 mls @ 20 mls/hr IVC .Q5H [facility] Stop: 05/27/18 23:16 Last Admin: 11/26/17 08:51 Dose: 20 mls/hr Insulin Human Lispro (Humalog) 0 units SQ TIDAC [facility] PRN Reason: Protocol Stop: 05/26/18 07:31 Last Admin: 11/26/17 07:26 Dose: Not Given Insulin Human Lispro (Humalog) 0 units SQ HS [facility] PRN Reason: Protocol Stop: 05/26/18 21:01 Last Admin: 11/25/17 21:30 Dose: Not Given Lisinopril (Zestril) 5 mg PO DAILY [facility] PRN Reason: Protocol Stop: 05/27/18 10:16 Last Admin: 11/26/17 07:22 Dose: 5 mg Naloxone HCl (Narcan) 0.4 mg IVP Q2MIN PRN PRN Reason: SEE COMMENTS Stop: 05/26/18 01:27 Nitroglycerin (Nitroglycerin) 0.2 mg TD 0730 [facility] Stop: 05/26/18 17:31 Last Admin: 11/26/17 07:23 Dose: 0.2 mg Prednisone (Prednisone) 40 mg PO DAILY [facility] Stop: 11/30/17 09:01 - Imaging and Cardiology Echo: report reviewed Cardiac cath: report reviewed - EKG Interpretation EKG results cardiology: other (12 hr tele AVG HR 83, PAT noted, no significant pauses or ventricular arrhythmias.) Consult Discharge Plan - Plan Referrals: Rosa Schwarz CNP [Advanced Practice Nurse] - 12/01/17 1:00 pm NONE,PCP [Primary Care Provider] -
--- NOTE | 2017-11-26 10:58 | Gastroenterology Consult Note ---
<Yesica Saldana - Last Filed: 11/26/17 10:55> Date of Encounter: 11/26/17 Time of Encounter: 09:50 - Assessment and plan (1) Melena Current Visit: Yes Status: Acute Assessment and plan: Pt presents with NSTEMI and is status post coronary cath without intervention. He has refused CABG. EF is 20-25%. He was started on heparin drip and developed melena. He will need EGD, will discuss with Dr Landin. - Time Spent With Patient Total time spent is greater than 50% in coordination of care (as documented) at patient's floor/unit and/or counseling patient: GI History of Present Illness - Data of Consult Patient: new to practice Consult date: 11/26/17 Requesting Physician: Nestor Vargas MD - Consult Narrative Reason for consult: melena History of present illness: Mr. Abrams is a 67 year old male with a PM hx of COPD and tobacco abuse. He presents with pneumonia, SIRs presentation, NSTEMI. Patient was admitted to [facility] for progressive 3 weeks history of shortness of breath, he was diagnosed with [place]. Troponin max was 6.18. He is status post cardiac cardiac cath with no interventions. EF 20-25%. He was started on Heparin drip and subsequently developed black tarry stools which were positive for occult blood. Hgb has dropped from 16 to 12.3. Colonoscopy: denies EGD: denies NSAIDS/ASA: ASA 81 mg Anticoagulants: Heparin drip Dc'd Past Med Surg Social Fam HX - Past Medical History Medical history: COPD Psychiatric history: no psych history - Past Surgical History Surgical History: no surgical history - Social History Smoking Status: Current every day smoker Smokeless Tobacco Status: No Alcohol use: occasionally Drug use: none Review of Systems: GI: as per EMMONAK GENERAL: denies fever or chills EYES: denies yellow discoloration ENT: denies pain with swallowing or difficulty swallowing CARDIO: see HPI RESP: Shortness of breath with exertion, better since admission : denies change in color of urine NEURO: weakness HEME: Denies any bruising MS: denies joint pain, joint swelling or back pain. DERM: denies rash or itching PSYCH: Denies history of anxiety or depression - Constitutional Vitals: Temp Pulse Resp BP Pulse Ox 97.8 F 83 16 116/76 89 11/26/17 07:19 11/26/17 08:00 11/26/17 10:51 11/26/17 07:19 11/26/17 10:51 Exam: CONSTITUTIONAL:~alert, no acute distress.~HEAD:~normocephalic.~EYES:~no jaundice.~NECK:~no obvious swelling.~HEART:~regular rate and rhythm, no murmurs. ~LUNGS:~bilateral fair air entry.~ABDOMEN:~non distended, soft, non tender, no masses palpable, no organomegaly.~RECTAL EXAM:~Deferred.~EXTREMITIES:~no clubbing, cyanosis or edema, asthetic build.~SKIN:~no stigmata of chronic liver disease.~NEUROLOGIC:~no obvious focal defect.~~~~ Results - Labs CBC & Chem 7: 11/26/17 03:30 11/26/17 03:30 Labs: Last Result Calcium 8.6 mg/dL (8.6-10.3) 11/26/17 03:30 Troponin I 6.18 ng/mL (< 0.04) H* 11/24/17 07:37 Stool Occult Blood Positive (Negative) A 11/25/17 22:30 Entire Visit Hgb 12.3 g/dL (12.9-16.9) L 11/26/17 03:30 Hct 36.5 % (37.5-50.1) L 11/26/17 03:30 PT 11.5 Seconds (9.4-12.1) 11/24/17 08:46 Total Bilirubin 0.7 mg/dL (0.3-1.0) 11/24/17 01:32 AST 54 Units/L (13-39) H 11/24/17 01:32 ALT 18 Units/L (7-52) 11/24/17 01:32 - ABG ABG results: PT/INR, D-dimer PT 11.5 Seconds (9.4-12.1) 11/24/17 08:46 - Impressions Impressions Echocardiogram Limited Views 11/25/17 13:23 Impressions: LVEF 30%. Not all LV wall segments were well visualized. However, overall LV systolic dysfunction appears global. There is no LV thrombus. Definity echo contrast was used. Normal right ventricular structure and function. Left Ventricular Wall Motion: Rest Echo Findings The apex, apical inferior, mid inferior, basal inferior, apical anterior, mid anterior, basal anterior, apical septal, mid inferior septal, basal inferior septal, apical lateral, mid anterior lateral and basal anterior lateral mcdonald were hypokinetic. The mid anterior septal, mid inferior lateral, basal anterior septal and basal inferior lateral mcdonald were not visualized. Findings: Study Quality * Technically adequate exam. ECG Findings * Normal sinus rhythm. Left Ventricle * LVEF 30%. * There is no LV thrombus. * Definity echo contrast was used. Right Ventricle * Normal right ventricular structure and function. Consult Discharge Plan - Plan Referrals: Rosa Schwarz PRINTER'S ASSISTANT [Advanced Practice Nurse] - 12/01/17 1:00 pm NONE,PCP [Primary Care Provider] - <Veronica Lanidn - Last Filed: 11/26/17 16:59> Date of Encounter: 11/26/17 Time of Encounter: 17:30 - Time Spent With Patient Total time spent is greater than 50% in coordination of care (as documented) at patient's floor/unit and/or counseling patient: GI History of Present Illness - Data of Consult Requesting Physician: Nestor Vargas MD - Consult Narrative History of present illness: Mr. Abrams is a 67 year old male - Constitutional Vitals: Temp Pulse Resp BP Pulse Ox 98 F 81 16 152/81 96 11/26/17 13:00 11/26/17 16:55 11/26/17 16:55 11/26/17 16:55 11/26/17 16:43 Results - Labs CBC & Chem 7: 11/26/17 03:30 11/26/17 03:30 Labs: Last Result Calcium 8.6 mg/dL (8.6-10.3) 11/26/17 03:30 Troponin I 6.18 ng/mL (< 0.04) H* 11/24/17 07:37 Stool Occult Blood Positive (Negative) A 11/25/17 22:30 Entire Visit Hgb 12.3 g/dL (12.9-16.9) L 11/26/17 03:30 Hct 36.5 % (37.5-50.1) L 11/26/17 03:30 PT 11.5 Seconds (9.4-12.1) 11/24/17 08:46 Total Bilirubin 0.7 mg/dL (0.3-1.0) 11/24/17 01:32 AST 54 Units/L (13-39) H 11/24/17 01:32 ALT 18 Units/L (7-52) 11/24/17 01:32 - ABG ABG results: PT/INR, D-dimer PT 11.5 Seconds (9.4-12.1) 11/24/17 08:46 - Impressions Impressions Echocardiogram Limited Views 11/25/17 13:23 Impressions: LVEF 30%. Not all LV wall segments were well visualized. However, overall LV systolic dysfunction appears global. There is no LV thrombus. Definity echo contrast was used. Normal right ventricular structure and function. Left Ventricular Wall Motion: Rest Echo Findings The apex, apical inferior, mid inferior, basal inferior, apical anterior, mid anterior, basal anterior, apical septal, mid inferior septal, basal inferior septal, apical lateral, mid anterior lateral and basal anterior lateral mcdonald were hypokinetic. The mid anterior septal, mid inferior lateral, basal anterior septal and basal inferior lateral mcdonald were not visualized. Findings: Study Quality * Technically adequate exam. ECG Findings * Normal sinus rhythm. Left Ventricle * LVEF 30%. * There is no LV thrombus. * Definity echo contrast was used. Right Ventricle * Normal right ventricular structure and function. - Attending Attestation I have personally performed a face to face evaluation on this patient. I have reviewed and agree with the care plan. History and Exam by me shows:
[2017-11-26] MEDS ORDERED: *HR* FentaNYL (PF) 100 MCG/2 ML VIAL ONE (16:22)
[2017-11-26] MEDS ORDERED: Tetracaine/Benzocaine/Butamben 200MG/SPRAY (100SPY/BOT) MM ONE (17:00)
[2017-11-26] MEDS ORDERED: Simethicone 40 MG/0.6 ML MLS IR ONE (17:00)
[2017-11-26] MEDS ORDERED: *HR* Midazolam HCl 2 MG/2 ML VIAL IVP ONE (17:00)
[2017-11-26] MEDS ORDERED: *HR* FentaNYL (PF) 100 MCG/2 ML VIAL IVP ONE (17:00)
--- NOTE | 2017-11-26 17:00 | Pre-Sedation Evaluation ---
Pre-sedation evaluation - Pre-sedation checklist Date of procedure: 11/24/17 Procedure: Egd Recent Vitals: Last Vital Signs Temp 98 F 11/26/17 13:00 Pulse 81 11/26/17 16:55 Resp 16 11/26/17 16:55 BP 152/81 11/26/17 16:55 Pulse Ox 96 11/26/17 16:43 H&P (including ROS) documented in medical record: Yes Previous reaction to sedatives/anesthetics: No Dietary Status: No solid food in preceding 4 hrs and no liquid in preceding 2 hrs Dentition: No loose teeth or bridges ASA Classification *see protocol: CLASS III-Severe systemic disease Plan of Care: Pt appropriate candidate for procedure/moderate/conscious sedation , Risks/benefits of procedure/sedation discussed w/ patient/family
[2017-11-26] MEDS: *HR* Midazolam HCl 5 MG/5 ML VIAL IVP ONE (18:11)
[2017-11-26] MEDS ORDERED: SODIUM CHLORIDE/NAHCO3/KCL/PEG 4,000 ML SOLN.RECON PO ONE (19:00)
[2017-11-27 04:55] LABS: Basophils % 0.1 %; Hematocrit 43.9 % (37.5-50.1); Immature Granulocytes % 0.4 % (0-4); Lymphocytes # 1.5 K/mcL (0.6-4.6); Lymphocytes % 10.8 %; Mean Corpuscular HGB Conc 32.6 g/dL (31.6-35.5); Mean Corpuscular Hemoglobin 30.7 pg (28.0-33.3); Mean Corpuscular Volume 94.2 fL (83.0-100.0); Mean Platelet Volume 11.8 fL (9.4-12.4); Monocytes # 1.1 K/mcL (0.0-1.3); Neutrophils # 11.2 K/mcL (1.6-8.9); Platelet Count 137 K/mcL (140-400); Red Blood Count 4.66 M/mcL (4.19-5.50); Red Cell Distribution Width 13.4 % (11.5-14.5); Segmented Neutrophils % 80.7 %
[2017-11-27 04:56] LABS: Hemoglobin 14.3 g/dL (12.9-16.9)
[2017-11-27] MEDS: Ipratropium/Albuterol Neb 3 ML IH SCH ×4 (05:03→22:38)
[2017-11-27 05:14] LABS: BUN/Creatinine Ratio 34 (6-26); Blood Urea Nitrogen 35 mg/dL (8-23); Calcium 9.3 mg/dL (8.6-10.3); Carbon Dioxide 32 mEq/L (23-29); Chloride 100 mEq/L (98-107); Glucose 99 mg/dL (70-105); Osmolality,Calculated 296 (280-300); Potassium 3.8 mEq/L (3.5-5.1); Sodium 139 mEq/L (136-145); eGFR For African Americans > 60 (> 60); eGFR For Non-African Americans > 60 (> 60)
[2017-11-27] MEDS: Insulin LISPRO 300 UNITS/3 ML VIAL SQ SCH ×4 (07:42→21:22)
[2017-11-27] MEDS: Furosemide 40 MG TABLET PO SCH (07:48)
[2017-11-27] MEDS: predniSONE 20 MG TABLET PO SCH (07:48)
[2017-11-27] MEDS: Azithromycin 500 MG in D5% in Water 250 ML IVPB SCH (07:49)
[2017-11-27] MEDS: Nitroglycerin 0.2 MG PATCH.TD24 TD SCH (07:49)
--- NOTE | 2017-11-27 09:23 | Cardiothoracic Progress Note ---
Date of Encounter: 11/27/17 Time of Encounter: 09:20 - Assessment and plan (1) NSTEMI (non-ST elevated myocardial infarction) Current Visit: Yes Status: Acute The patient is scheduled to have lower endoscopy possibly today. He is considering open heart surgery. However, he wants to be discharged and come back to the office. He has my office number and can call to schedule when he is available. Prior to surgery, he would need a GERSON to assess the aortic valve. This could also be done prior to discharge. - Subjective Interval history: The patient has had no angina and no chest pain. Apparently, upper endoscopy was negative yesterday. No further melena or bloody stools. Vital Signs, Last 4 Hours Temp Pulse Resp BP Pulse Ox 11/27/17 07:36 92 11/27/17 07:31 98.1 F 94 16 157/87 92 11/27/17 07:29 98.1 F 94 20 157/87 92 11/27/17 05:34 98.0 F 89 15 149/86 92 Oxgyen Flow Rate Oxygen Flow Rate (LPM) 2 Weight 11/25/17 11/26/17 11/27/17 23:59 23:59 23:59 Weight 67 kg 63.1 kg 64 kg Lungs are clear to percussion and auscultation. Heart is in a normal sinus rhythm. - Labs 11/27/17 03:51 11/27/17 03:51 Lab Results, Last 24 hours 11/27/17 11/27/17 03:51 03:51 WBC 13.9 H Hgb 14.3 D Hct 43.9 Plt Count 137 L Sodium 139 Potassium 3.8 Chloride 100 Carbon Dioxide 32 H BUN 35 H Creatinine 1.04 Glucose 99 Calcium 9.3 Consult Discharge Plan - Plan Referrals: Rosa Schwarz CNP [Advanced Practice Nurse] - 12/01/17 1:00 pm NONE,PCP [Primary Care Provider] -
--- NOTE | 2017-11-27 09:42 | Internal Med Progress Note ---
<Zac Jacinto - Last Filed: 11/27/17 09:37> Date of Encounter: 11/27/17 Time of Encounter: 09:37 - Assessment and plan (1) NSTEMI (non-ST elevated myocardial infarction) Current Visit: Yes Status: Acute Assessment and plan: Patient's troponins are 0.05, 0.69, 3.00, 6.18 respectively. Continues to have chest tightness and worsening shortness of breath. EKG shows sinus tachycardia with Q waves in inferior leads. Continue statin, beta bev Echocardiogram LVEF of 20-25%, severe left ventricular systolic dysfunction, thrombus visualized. Left heart catheterization revealed severe three-vessel disease. CT surgery consulted:Patient is ok to have CABG. Plan to undergo GERSON after colonoscopy then discharge patient and he will follow up outpatient with CT surgery. EGD: no source of bleeding identified. If colonoscopy shows no active bleeding, will start patient on aspirin. (2) GI bleed Current Visit: Yes Status: Acute Assessment and plan: 3 BM with black stool hgb stable EGD negative for acute bleed d/c PPI drip start omeprazole 40mg daily colonoscopy today Qualifiers: GI bleed type/associated pathology: unspecified gastrointestinal hemorrhage type Qualified Code(s): K92.2 - Gastrointestinal hemorrhage, unspecified (3) Acute exacerbation of CHF (congestive heart failure) Current Visit: Yes Status: Acute Assessment and plan: resolved stable BNP 2047 Continue Lasix Continue cardiac diet. Fluid restrict to 2 L. Strict I's and O's. Qualifiers: Heart failure type: combined systolic and diastolic Qualified Code(s): I50.43 - Acute on chronic combined systolic (congestive) and diastolic ( congestive) heart failure (4) Community acquired pneumonia Current Visit: Yes Status: Suspected Assessment and plan: Patient presented with shortness of breath Patient is a long time tobacco abuser. Chest x-ray shows bilateral patchy mid and lower lung interstitial opacities possibly atypical pneumonia. Azithromycin day 4 blood cultures negative Strep and legionella antigens negative. RIP panel negative Qualifiers: Laterality: unspecified laterality Qualified Code(s): J18.9 - Pneumonia, unspecified organism (5) COPD exacerbation Current Visit: Yes Status: Acute Assessment and plan: Smokes 1.25 PPD for many years continue O2, steroids, antibiotics (6) Tobacco abuse Current Visit: Yes Status: Acute Assessment and plan: Patient educated on benefits of tobacco cessation. - Subjective Interval history: No acute overnight events. Patient has no complaints. He underwent bowel prep overnight and has light brown watery bowel movements. Will undergo tapwater enemas. - Constitutional Vitals: Temp Pulse Resp BP Pulse Ox 98.1 F 92 16 157/87 92 11/27/17 07:31 11/27/17 07:36 11/27/17 07:31 11/27/17 07:31 11/27/17 07:31 - Other Additional findings: General: without distress Heart: Regular rate and rhythm with no murmur Lungs: Clear to auscultation bilaterally Abdomen: Soft nontender, nondistended positive bowel sounds Skin: warm and dry, right and Left groin intact. Extremities: Absent pedal edema, Neuro: Alert oriented 3 Vascular: Pedal and radial pulses 2 out of 4 Internal Medicine: Result - Labs CBC & Chem 7: 11/27/17 03:51 11/27/17 03:51 Labs: Short CBC 11/27/17 Range/Units 03:51 WBC 13.9 H (4.3-11.1) K/mcL Hgb 14.3 D (12.9-16.9) g/dL Hct 43.9 (37.5-50.1) % Plt Count 137 L (140-400) K/mcL Neutrophils # 11.2 H (1.6-8.9) K/mcL BMP 11/27/17 03:51 Sodium 139 Potassium 3.8 Chloride 100 Carbon Dioxide 32 H BUN 35 H Creatinine 1.04 Glucose 99 Calcium 9.3 - ABG Interpretation ABG results: PT/INR, D-dimer PT 11.5 Seconds (9.4-12.1) 11/24/17 08:46 - Impressions Impressions Echocardiogram Limited Views 11/25/17 13:23 Impressions: LVEF 30%. Not all LV wall segments were well visualized. However, overall LV systolic dysfunction appears global. There is no LV thrombus. Definity echo contrast was used. Normal right ventricular structure and function. Left Ventricular Wall Motion: Rest Echo Findings The apex, apical inferior, mid inferior, basal inferior, apical anterior, mid anterior, basal anterior, apical septal, mid inferior septal, basal inferior septal, apical lateral, mid anterior lateral and basal anterior lateral mcdonald were hypokinetic. The mid anterior septal, mid inferior lateral, basal anterior septal and basal inferior lateral mcdonald were not visualized. Findings: Study Quality * Technically adequate exam. ECG Findings * Normal sinus rhythm. Left Ventricle * LVEF 30%. * There is no LV thrombus. * Definity echo contrast was used. Right Ventricle * Normal right ventricular structure and function. Consult Discharge Plan - Plan Referrals: Rosa Schwarz LAUNDERETTE ATTENDANT [Advanced Practice Nurse] - 12/01/17 1:00 pm NONE,PCP [Primary Care Provider] - <Nestor Vargas - Last Filed: 11/27/17 18:22> Date of Encounter: 11/27/17 - Constitutional Vitals: Temp Pulse Resp BP Pulse Ox 98.0 F 89 20 145/76 94 11/27/17 16:43 11/27/17 16:48 11/27/17 16:43 11/27/17 16:43 11/27/17 16:43 Internal Medicine: Result - Labs CBC & Chem 7: 11/27/17 03:51 11/27/17 03:51 Labs: Short CBC 11/27/17 Range/Units 03:51 WBC 13.9 H (4.3-11.1) K/mcL Hgb 14.3 D (12.9-16.9) g/dL Hct 43.9 (37.5-50.1) % Plt Count 137 L (140-400) K/mcL Neutrophils # 11.2 H (1.6-8.9) K/mcL BMP 11/27/17 03:51 Sodium 139 Potassium 3.8 Chloride 100 Carbon Dioxide 32 H BUN 35 H Creatinine 1.04 Glucose 99 Calcium 9.3 - ABG Interpretation ABG results: PT/INR, D-dimer PT 10.7 Seconds (9.4-12.1) 11/27/17 10:49 - Attending Attestation I performed a [id number] diagnostic evaluation of this patient and my medical decision-making was reviewed with the Resident Physician, Dr Zac Jacinto. I agree with the documented findings, disposition and treatment plan as described except to the extent set forth below. Patient denies chest pain. Physical exam: Gen: NAD, AAOx3 Heart: RRR, S1S2, no murmurs Lungs: CTABL Abdomen: S, NT, + bowel sounds Plan: EGD was negative for source of bleed. Patient will have colonoscopy done today. Plan for discharge were close follow-up with CT surgery if the patient agrees to have CABG. Nestor Vargas MD
[2017-11-27 11:20] LABS: Prothrombin Time 10.7 Seconds (9.4-12.1)
[2017-11-27 13:05] LABS: Activated Partial Thrombo Time 27.2 Seconds (26.0-36.0)
[2017-11-27] MEDS ORDERED: Simethicone 40 MG/0.6 ML MLS IR ONE (18:25)
[2017-11-27] MEDS ORDERED: *HR* FentaNYL (PF) 100 MCG/2 ML VIAL IVP ONE (18:25)
[2017-11-27] MEDS ORDERED: *HR* Midazolam HCl 2 MG/2 ML VIAL IVP ONE (18:25)
[2017-11-27] MEDS ORDERED: *HR* Midazolam HCl 5 MG/5 ML VIAL IVP ONE (18:27)
[2017-11-27] MEDS ORDERED: *HR* FentaNYL (PF) 100 MCG/2 ML VIAL ONE (18:28)
[2017-11-27] MEDS ORDERED: 0.9 % Sodium Chloride 1,000 ML IVC SCH (18:30)
[2017-11-28] MEDS: Ipratropium/Albuterol Neb 3 ML IH SCH ×3 (04:02→15:23)
[2017-11-28 04:28] LABS: Hematocrit 39.4 % (37.5-50.1); Hemoglobin 13.2 g/dL (12.9-16.9); Mean Corpuscular HGB Conc 33.5 g/dL (31.6-35.5); Mean Corpuscular Hemoglobin 30.8 pg (28.0-33.3); Mean Corpuscular Volume 92.1 fL (83.0-100.0); Mean Platelet Volume 11.7 fL (9.4-12.4); Platelet Count 115 K/mcL (140-400); Red Blood Count 4.28 M/mcL (4.19-5.50); Red Cell Distribution Width 13.1 % (11.5-14.5)
[2017-11-28] MEDS: Insulin LISPRO 300 UNITS/3 ML VIAL SQ SCH ×2 (07:22→12:40)
[2017-11-28] MEDS: Nitroglycerin 0.2 MG PATCH.TD24 TD SCH (07:39)
[2017-11-28] MEDS: Furosemide 40 MG TABLET PO SCH (07:40)
[2017-11-28] MEDS: Azithromycin 500 MG in D5% in Water 250 ML IVPB SCH (07:40)
[2017-11-28] MEDS: predniSONE 20 MG TABLET PO SCH (07:40)
[2017-11-28] MEDS ORDERED: *HR* FentaNYL (PF) 100 MCG/2 ML VIAL IVP PRN (08:10)
[2017-11-28] MEDS ORDERED: Lidocaine Viscous Oral Soln 15 ML SOLUTION MM PRN (08:10)
[2017-11-28] MEDS ORDERED: *HR* Midazolam HCl 2 MG/2 ML VIAL IVP PRN (08:10)
[2017-11-28] MEDS ORDERED: 0.9 % Sodium Chloride 500 ML IVC ONE (08:11)
[2017-11-28] MEDS ORDERED: Tetracaine/Benzocaine/Butamben 200MG/SPRAY (100SPY/BOT) MM ONE (08:11)
[2017-11-28] MEDS ORDERED: *HR* Midazolam HCl 5 MG/5 ML VIAL IVP ONE ×2 (08:47→08:48)
[2017-11-28] MEDS ORDERED: Aspirin Enteric Coated 81 MG Tablet PO SCH (09:00)
--- NOTE | 2017-11-28 09:06 | Cardiothoracic Progress Note ---
Date of Encounter: 11/28/17 Time of Encounter: 09:04 - Assessment and plan (1) NSTEMI (non-ST elevated myocardial infarction) Current Visit: Yes Status: Acute The patient is due for a GERSON today. This is being done to assess the aortic valve status and LV function. He is okay for discharge from my standpoint. The patient has my office number and will call and make an appointment when he feels ready. - Subjective Interval history: The patient has had no angina and no chest pain. Vital Signs, Last 4 Hours Temp Pulse Resp BP Pulse Ox 11/28/17 08:32 97.9 F 84 12 145/81 92 11/28/17 07:57 80 11/28/17 07:53 88 18 130/73 97 11/28/17 06:36 98.3 F 82 18 130/73 92 Oxgyen Flow Rate Oxygen Flow Rate (LPM) 2 Clinical Data, last 8 Hours Output, Urine Amount 250 Weight 11/26/17 11/27/17 11/28/17 23:59 23:59 23:59 Weight 63.1 kg 64 kg 60.781 kg Lungs are clear to percussion and auscultation. Heart is in a normal sinus rhythm. - Labs 11/28/17 03:50 11/27/17 03:51 Lab Results, Last 24 hours 11/27/17 11/28/17 10:49 03:50 WBC 9.2 Hgb 13.2 Hct 39.4 Plt Count 115 L INR 1.0 APTT 27.2 D Consult Discharge Plan - Plan Referrals: Eda Vásquez, LABORATORY ANALYST [Advanced Practice Nurse] - 12/04/17 1:30 pm (Please take your INS Card with you) NONE,PCP [Primary Care Provider] -
[2017-11-28] MEDS: *HR* Midazolam HCl 5 MG/5 ML VIAL IVP ONE (09:20)
--- NOTE | 2017-11-28 11:01 | Discharge Summary ---
<Zac Jacinto - Last Filed: 11/28/17 15:11> Orders not resulted at time of discharge: Pending orders 11/24/17 13:57 CL Cardiac Catheterization [CL] Routine 11/27/17 19:16 Surgical Pathology [PTH] Routine Date of Encounter: 11/28/17 Time of Encounter: 10:55 - Discharge Diagnosis (1) NSTEMI (non-ST elevated myocardial infarction) Priority: Primary Status: Resolved (2) GI bleed Priority: Secondary Status: Ruled-out Qualifiers: GI bleed type/associated pathology: unspecified gastrointestinal hemorrhage type Qualified Code(s): K92.2 - Gastrointestinal hemorrhage, unspecified (3) Acute exacerbation of CHF (congestive heart failure) Priority: Secondary Status: Resolved Qualifiers: Heart failure type: combined systolic and diastolic Qualified Code(s): I50.43 - Acute on chronic combined systolic (congestive) and diastolic ( congestive) heart failure (4) Community acquired pneumonia Priority: Secondary Status: Suspected Qualifiers: Laterality: unspecified laterality Qualified Code(s): J18.9 - Pneumonia, unspecified organism (5) COPD exacerbation Priority: Secondary Status: Resolved (6) Tobacco abuse Priority: Secondary Status: Chronic Hospital course: Mr. Abrams is a 67 year old male presented to [facility] with chief complaint of shortness of breath for 3 weeks. At [facility] he is found to have lactic acidosis and elevated troponins. He was given aspirin, Plavix, statin, metoprolol and started on heparin gtt. Due to this he was transferred to [facility]. Patient's EKG showed a rate of 108 with Q waves in inferior leads. Patient smokes 1.5 cigarettes a day for many years and has history of COPD. Chest x-ray showed bilateral mid and lower lung interstitial opacities and patient was started on IV antibiotics, DuoNeb's, steroids. Cardiology was consulted and patient was taken urgently for left heart catheterization. LHC revealed:severe three vessel CAD. Collateral vessels from LCA to right PDA that are visualized. No intervention was performed. 50% mLAD, 70% distal LAD, 70% apical LAD, 90% distal LCx and 99% 1st marginal--both diffusely diseased. 70% pRCA, 80% mLAD, 100% distal RCA as per cardiology note. Echo showed LVEF 20-25%. Severe LV systolic dysfunction - appears global but views are angulated and not all segments are well visualized. Thrombus is not visualized in the LV apex - Definity was not used. Mild left ventricular diastolic dysfunction. Normal right ventricular structure and function. Mild-moderate aortic regurgitation. No pulmonary hypertension. Patient was started on Lasix for CHF exacerbation. CT surgery was consulted and patient agreed for CABG. On night of 11/25 he had 3 black bowel movements. heparin, aspirin, Plavix were discontinued. GI was consulted. Hemoglobin remained stable at 13-14. Patient underwent EGD which was negative for bleeding. Colonoscopy showed multiple polyps that were resected and some diverticulosis in the sigmoid colon, internal hemorrhoids. Patient will need repeat surveillance colonoscopy in 3 years. Aspirin, Plavix were restarted. Patient underwent GERSON which showed left ventricular ejection fraction of 30% with global left ventricular systolic dysfunction, right ventricular was normal in size and systolic function, trivial aortic regurgitation. Patient is ambulating independently, without oxygen, tolerating his diet. He will follow- up with CT surgery to be scheduled for CABG. Discharge discussed with: patient, family - Time Spent with Patient Total time spent providing and/or coordinating discharge services: - Discharge Medications Prescriptions: Nitroglycerin [Nitrostat] 0.4 mg SL Q5MIN PRN #30 tab.subl PRN Reason: Chest Pain Aspirin Enteric Coated [Aspirin EC] 81 mg PO DAILY #30 tablet. Carvedilol [Coreg] 3.125 mg PO BIDWM #60 tablet Clopidogrel [Plavix] 75 mg PO DAILY #30 tablet Furosemide [Lasix] 40 mg PO DAILY #30 tablet Lisinopril [Zestril] 5 mg PO DAILY #30 tablet Lovastatin 40 mg PO DAILY #30 tablet Omeprazole [PriLOSEC] 40 mg PO DAILY@0630 #30 capsule. predniSONE [PredniSONE] 40 mg PO DAILY #16 tablet Home Medications: Aspirin Enteric Coated [Aspirin EC] 81 mg PO DAILY #30 tablet. 11/28/17 [Rx] Carvedilol [Coreg] 3.125 mg PO BIDWM #60 tablet 11/28/17 [Rx] Clopidogrel [Plavix] 75 mg PO DAILY #30 tablet 11/28/17 [Rx] Furosemide [Lasix] 40 mg PO DAILY #30 tablet 11/28/17 [Rx] Lisinopril [Zestril] 5 mg PO DAILY #30 tablet 11/28/17 [Rx] Lovastatin 40 mg PO DAILY #30 tablet 11/28/17 [Rx] Nitroglycerin [Nitrostat] 0.4 mg SL Q5MIN PRN #30 tab.subl 11/28/17 [Rx] Omeprazole [PriLOSEC] 40 mg PO DAILY@0630 #30 capsule.dr 11/28/17 [Rx] predniSONE [PredniSONE] 40 mg PO DAILY #16 tablet 11/28/17 [Rx] Allergies/Adverse Reactions: 3 Allergy/AdvReac Type Severity Reaction Status Date / Time No Known Allergies Allergy Verified 11/24/17 08:43 Date of admission: 11/24/17 01:28 Primary care physician: PCP NONE Consults: 11/24/17 02:35 Consult to Cardiology [CONS] Routine Comment: Consulting Provider: Cardiology Meal Reason for Consult: NSTEMI Call Completed: No 11/25/17 08:01 Consult to Cardiac Rehabilitation-Phase1 [CONS] Routine Comment: Reason for Consult: NSTEMI Call Completed: No 11/25/17 12:59 Consult to Cardiothoracic Surgery [CONS] Routine Consulting Provider: Cardiothoracic Surgery [facility] Reason for Consult: severe 3 vessel CAD Call Completed: Yes 11/25/17 23:32 Consult to Gastroenterology [CONS] Routine Consulting Provider: [facility] Reason for Consult: Patient is post-heart catheterization from yesterday w/o intervention. Three vessel disease discovered during cath. Pt. placed on heparin drip post-cath and passed black,tarry stool this evening. Stat fecal hemoccult ordered which was positive. Pt. discussed w/Dr. Jesus regarding heparin drip and situation w/recommendation to stop heparin. Hgb 18.3 and Hct 56.8 on 11/23, 16.0 and 49.1 on 11/24, and 14.4 and 44.6 on 11/25. Protonix drip ordered to start now. Pt. NPO. Timed H/H. Call Completed: Yes 11/26/17 13:53 Consult to Teacher Adult Education [CONS] Routine Reason for SW Consult: help with not affording medications Discharging clinician: Zac Jacinto Anticipated date of discharge: 11/28/17 - Constitutional Vitals: Temp Pulse Resp BP Pulse Ox 97.7 F 80 18 115/72 94 11/28/17 10:17 03/30/18 10:17 11/28/17 10:17 11/28/17 10:17 11/28/17 10:17 - Other Additional findings: General: without distress Heart: Regular rate and rhythm with no murmur Lungs: Clear to auscultation bilaterally Abdomen: Soft nontender, nondistended positive bowel sounds Skin: warm and dry, right and Left groin intact. Extremities: Absent pedal edema, Neuro: Alert oriented 3 Vascular: Pedal and radial pulses 2 out of 4 - Patient Status Disposition: Home, Self-Care Condition: Good Functional capacity at discharge: independent ambulation Overall status at discharge: patient is progressing back to baseline - Discharge Instructions Instructions: Myocardial Infarction (DC), Heart Failure (DC), Coronary Artery Disease (DC), Chest Pain (DC), Left Heart Catheterization (DC), Heart Healthy Diet (DC), Sepsis (DC) Follow Up With: Eda Vásquez CASH CONTROL SPECIALIST [Advanced Practice Nurse] - 12/04/17 1:30 pm (Please take your INS Card with you) NONE,PCP [Primary Care Provider] - - Diet and Activity Activity: as per physical therapy Diet: low fat, low cholesterol, low salt diet <Nestor Vargas - Last Filed: 11/28/17 19:55> Orders not resulted at time of discharge: Pending orders 11/24/17 13:57 CL Cardiac Catheterization [CL] Routine 11/27/17 19:16 Surgical Pathology [PTH] Routine Date of Encounter: 11/28/17 Hospital course: Mr. Abrams is a 67 year old male - Time Spent with Patient Total time spent providing and/or coordinating discharge services: Date of admission: 11/24/17 01:28 Primary care physician: PCP NONE Consults: 11/24/17 02:35 Consult to Cardiology [CONS] Routine Comment: Consulting Provider: Cardiology [facility] Reason for Consult: NSTEMI Call Completed: No 11/25/17 08:01 Consult to Cardiac Rehabilitation-Phase1 [CONS] Routine Comment: Reason for Consult: NSTEMI Call Completed: No 11/25/17 12:59 Consult to Cardiothoracic Surgery [CONS] Routine Consulting Provider: Cardiothoracic Surgery [facility] Reason for Consult: severe 3 vessel CAD Call Completed: Yes 11/25/17 23:32 Consult to Gastroenterology [CONS] Routine Consulting Provider: Gastroenterology [facility] Reason for Consult: Patient is post-heart catheterization from yesterday w/o intervention. Three vessel disease discovered during cath. Pt. placed on heparin drip post-cath and passed black,tarry stool this evening. Stat fecal hemoccult ordered which was positive. Pt. discussed w/Dr. Jesus regarding heparin drip and situation w/recommendation to stop heparin. Hgb 18.3 and Hct 56.8 on 11/23, 16.0 and 49.1 on 11/24, and 14.4 and 44.6 on 11/25. Protonix drip ordered to start now. Pt. NPO. Timed H/H. Call Completed: Yes 11/26/17 13:53 Consult to Teacher Adult Education [CONS] Routine Reason for SW Consult: help with not affording medications - Constitutional Vitals: Temp Pulse Resp BP Pulse Ox 97.7 F 86 20 139/82 90 11/28/17 10:17 11/28/17 13:03 11/28/17 13:01 11/28/17 13:01 11/28/17 13:01 - Attending Attestation I performed a [id number] diagnostic evaluation of this patient and my medical decision-making was reviewed with the Resident Physician, Dr Zac Jacinto. I agree with the documented findings, disposition and treatment plan as described except to the extent set forth below. Patient reports 0/10 chest pain with no shortness of breath or lightheadedness. Physical exam: Gen: NAD, AAOx3 Heart: RRR, S1S2, no murmurs Lungs: CTABL Abdomen: S, NT, + bowel sounds Plan: I advised complete smoking cessation. We will discharge patient home. EGRSON shows mild aortic regurgitation. He will make an appointment with Dr. Bray to be evaluated for CABG. Nestor Vargas MD
[2017-11-28 13:03] VITALS: BP 139/82
== END 2017-11-28 17:15 | disposition home or self-care (01) | DRG 871 ==
LOC: 2NNU → SUATTDRO 01:28
PROVIDERS: ADMIT Internal Medicine Hematology & Oncology; ATTEND Internal Medicine
PROC: ENDOEBX (2017-11-26 17:00)

== ENCOUNTER 2019-04-09 14:02 | Inpatient (IN) ==
[~2019-04-09 14:02] MED LIST changes: -Naloxone 0.4 MG/ML INJ IVP PRN; +Vancomycin 1,000 MG, Sodium Chloride IRRigation 1,000 ML IR ONE
[2019-04-09] MEDS ORDERED: CeFAZolin Syr 2,000MG/20 ML 2,000 MG/20 ML SYRINGE IVPB ONE (14:18)
[2019-04-09] MEDS ORDERED: Albuterol 2.5 MG/3 ML NEBULIZER IH ONE ×2 (14:18→15:07)
[2019-04-09] MEDS ORDERED: Albuterol 2.5 MG/3 ML NEBULIZER ONE (14:24)
[2019-04-09] MEDS ORDERED: Ringers Solution, Lactated 1,000 ML IVC SCH (14:30)
[2019-04-09] MEDS ORDERED: Ipratropium Neb 0.5 MG NEBULIZER IH ONE (15:07)
[2019-04-09] MEDS ORDERED: *HR* OxyCODONE Immed Rel 5 MG TABLET PO PRN ×2 (15:07→22:58)
[2019-04-09] MEDS ORDERED: Acetaminophen IV 1,000 MG/100 ML INFUS..BTL IVPB ONE (15:07)
[2019-04-09] MEDS ORDERED: *HR* Labetalol 20 MG/4 ML SYRINGE IVP PRN ×2 (15:07→22:58)
[2019-04-09] MEDS ORDERED: Heparin 1,000 UNITS/500 mL 500 ML ONE (15:15)
[2019-04-09] MEDS ORDERED: Heparin 1,000 UNITS/500 mL 1,000 ML ONE (15:56)
[2019-04-09] MEDS ORDERED: *HR* Midazolam HCl 2 MG/2 ML VIAL ONE (15:58)
[2019-04-09] MEDS ORDERED: *HR* Propofol 200 MG/20 ML VIAL IVP ONE (15:58)
[2019-04-09] MEDS ORDERED: *HR* FentaNYL (PF) 100 MCG/2 ML VIAL ONE (15:58)
[2019-04-09] MEDS ORDERED: Lidocaine -MPF 2% 2 ML VIAL ONE ×2 (15:58→16:18)
[2019-04-09] MEDS ORDERED: Calcium Gluconate 1,000 MG/10 ML VIAL ONE (15:58)
[2019-04-09] MEDS ORDERED: *HR* Rocuronium Bromide 50 MG/5 ML VIAL ONE (15:58)
[2019-04-09] MEDS ORDERED: *HR* Remifentanil 1 MG VIAL IVP ONE ×2 (16:00→19:12)
[2019-04-09] MEDS ORDERED: *HR* Etomidate 40 MG/20 ML VIAL IVP ONE (16:13)
[2019-04-09] MEDS ORDERED: Isovue-300 50ML VIAL ONE (16:17)
[2019-04-09] MEDS ORDERED: EPHEDrine 50 MG/ML VIAL ONE ×2 (16:36→20:54)
[2019-04-09] MEDS ORDERED: *HR* Succinylcholine 200 MG/10 ML VIAL IVP ONE (16:39)
[2019-04-09] MEDS ORDERED: *HR* Heparin 5,000 UNIT/ML VIAL ONE ×2 (17:20→18:33)
[2019-04-09] MEDS ORDERED: Dexamethasone 4 MG/ML VIAL ONE (17:45)
[2019-04-09] MEDS ORDERED: Ondansetron 4 MG/2 ML VIAL ONE (17:45)
[2019-04-09] MEDS ORDERED: *HR* Phenylephrine 10 MG/ML VIAL ONE (20:25)
[2019-04-09] MEDS ORDERED: Protamine Sulfate 50 MG/5 ML VIAL IVP ONE (20:40)
[2019-04-09] MEDS ORDERED: *HR* Promethazine 25 MG/ML VIAL IVP PRN (22:58)
[2019-04-09] MEDS ORDERED: 0.9 % Sodium Chloride 1,000 ML IVC SCH (22:58)
[2019-04-09] MEDS ORDERED: Naloxone 0.4 MG/ML INJ IVP PRN (22:58)
[2019-04-09] MEDS ORDERED: *HR* HYDROcodone/Acet 5/325 mg TABLET PO PRN (22:58)
[2019-04-09] MEDS ORDERED: Acetaminophen 325 MG TABLET PO PRN (22:58)
[2019-04-09] MEDS: *HR* Metoprolol 5 MG/5 ML VIAL IVP SCH (23:36)
[2019-04-10 02:23] LABS: Basophils % 0.2 %; Hematocrit 34.4 % (37.5-50.1); Immature Granulocytes % 0.3 % (0-4); Lymphocytes # 0.8 K/mcL (0.6-4.6); Lymphocytes % 6.1 %; Mean Corpuscular HGB Conc 31.7 g/dL (31.6-35.5); Mean Corpuscular Hemoglobin 31.8 pg (28.0-33.3); Mean Corpuscular Volume 100.3 fL (83.0-100.0); Mean Platelet Volume 10.8 fL (9.4-12.4); Monocytes # 0.6 K/mcL (0.0-1.3); Monocytes % 4.4 %; Neutrophils # 11.4 K/mcL (1.6-8.9); Platelet Count 142 K/mcL (140-400); Red Blood Count 3.43 M/mcL (4.19-5.50); Red Cell Distribution Width 13.2 % (11.5-14.5); White Blood Count 12.8 K/mcL (4.3-11.1)
[2019-04-10 02:25] LABS: Hemoglobin 10.9 g/dL (12.9-16.9)
[2019-04-10 02:42] LABS: BUN/Creatinine Ratio 18 (6-26); Blood Urea Nitrogen 19 mg/dL (8-23); Calcium 8.5 mg/dL (8.6-10.3); Carbon Dioxide 33 mEq/L (23-29); Chloride 105 mEq/L (98-107); Glucose 164 mg/dL (70-105); Osmolality,Calculated 300 (280-300); Potassium 3.9 mEq/L (3.5-5.1); Sodium 142 mEq/L (136-145); eGFR For African Americans > 60 (> 60); eGFR For Non-African Americans > 60 (> 60)
[2019-04-10] MEDS ORDERED: Vancomycin 1,000 MG in D5% in Water 250 ML IVPB ONE (04:00)
[2019-04-10] MEDS: *HR* Metoprolol 5 MG/5 ML VIAL IVP SCH (05:59)
[2019-04-10] MEDS ORDERED: *HR* Heparin 5,000 UNIT/ML VIAL SQ SCH ×2 (06:00)
[2019-04-10] MEDS ORDERED: carvediloL 6.25 MG TABLET PO SCH (08:00)
[2019-04-10] MEDS ORDERED: Furosemide 40 MG TABLET PO SCH (09:00)
[2019-04-10] MEDS ORDERED: Aspirin Enteric Coated 81 MG Tablet PO SCH (09:00)
[2019-04-10] MEDS: Nicotine 21 MG PATCH.TD24 TD SCH ×2 (09:08)
[2019-04-10 13:19] VITALS: BP 120/70
== END 2019-04-10 12:45 | disposition home or self-care (01) | DRG 271 ==
LOC: SAMDAY 14:02 → 3BNU 18:28 → 2NNU 23:04
PROVIDERS: ADMIT Surgery; ATTEND Surgery
PROC: VASFFBG (ICD-10-PCS; 2019-04-09 17:30)

== ENCOUNTER 2019-05-06 06:15 | Inpatient (IN) ==
[2019-05-06] MEDS ORDERED: *HR* Phenylephrine 10 MG/ML VIAL ONE (06:25)
[2019-05-06] MEDS ORDERED: *HR* Propofol 200 MG/20 ML VIAL IVP ONE (06:26)
[2019-05-06] MEDS ORDERED: Ondansetron 4 MG/2 ML VIAL ONE (06:28)
[2019-05-06] MEDS ORDERED: *HR* Rocuronium Bromide 50 MG/5 ML VIAL ONE (06:28)
[2019-05-06] MEDS ORDERED: Lidocaine -MPF 2% 2 ML VIAL ONE ×2 (06:28→10:58)
[2019-05-06] MEDS ORDERED: Dexamethasone 4 MG/ML VIAL ONE (06:28)
[2019-05-06] MEDS ORDERED: *HR* Heparin 5,000 UNIT/ML VIAL ONE (06:30)
[2019-05-06] MEDS ORDERED: *HR* FentaNYL (PF) 100 MCG/2 ML VIAL ONE ×2 (06:32→08:31)
[2019-05-06] MEDS ORDERED: *HR* Midazolam HCl 2 MG/2 ML VIAL ONE (06:34)
[2019-05-06] MEDS ORDERED: *HR* Remifentanil 1 MG VIAL IVP ONE (06:35)
[2019-05-06] MEDS ORDERED: Heparin 1,000 UNITS/500 mL 500 ML ONE ×2 (06:42→07:16)
[2019-05-06] MEDS ORDERED: Acetaminophen IV 1,000 MG/100 ML INFUS..BTL IVPB ONE (07:10)
[2019-05-06] MEDS ORDERED: CeFAZolin Syr 2,000MG/20 ML 2,000 MG/20 ML SYRINGE IVPB ONE (07:11)
--- NOTE | 2019-05-06 07:11 | Anesthesia Evaluation PreOp ---
Date of Encounter: 05/06/19 Time of Encounter: 07:09 - Past History Planned Operation: L Carotid endarterectomy Cardiac History: [place], CHF (EF 44%), HTN, Hyperlipidemia, Other (PVD) Pulmonary History: Smoker, COPD (dyspnea at rest, no recent exacerbations) CASH ACCOUNTANT History: Other (carotid stenosis) Other Medical History: GERD Anesthesia History: No Prior Anesthetic Complications, Past Anesthesia (L iliac stent, fem-fem bypass) Alcohol Use: none Drug use: none Medications and Allergies Albuterol Sulfate [Proair Hfa] 1 puff IH Q6H PRN 04/09/19 [History] Aspirin [Lo-Dose Aspirin EC] 81 mg PO DAILY 04/09/19 [History] Carvedilol 1.5625 mg PO BID 04/09/19 [History] Clopidogrel [Plavix] 75 mg PO DAILY 04/09/19 [History] Ferrous Sulfate [Iron] 325 mg PO BID 04/09/19 [History] Furosemide [Lasix] 40 mg PO DAILY 04/09/19 [History] Lisinopril [Zestril] 5 mg PO DAILY 04/09/19 [History] Lovastatin 40 mg PO HS 04/09/19 [History] Omeprazole [PriLOSEC] 20 mg PO DAILY 04/09/19 [History] Allergy/AdvReac Type Severity Reaction Status Date / Time No Known Allergies Allergy Verified 05/06/19 06:49 - Meds/Allergy Pre-op Review Medications Reviewed: Yes Allergies Reviewed: Yes Beta Blockers on Current Med List: Yes If Beta Blockers taken, Date/Time (Last Dose taken): 430am 05/06/19 Anesthesia Results - Labs Laboratory Tests 04/07/19 04/10/19 04/10/19 11:43 01:30 01:30 WBC 12.8 H Hgb 10.9 L D Hct 34.4 L Plt Count 142 PT 10.9 INR 1.0 APTT 29.3 Sodium 142 Potassium 3.9 Chloride 105 Carbon Dioxide 33 H BUN 19 Creatinine 1.07 Glucose 164 H - Imaging EKG: report reviewed (Normal sinus rhythm, HR 90-100's) Additional studies: Limited TTE: Impressions: Technically challenging exam with suboptimal views. Normal sinus rhythm, HR 90-100's. Unable to estimate LVEF. Consider repeat Limited study with Definity. Indeterminate diastolic function. Normal right ventricular structure and function. Mild tricuspid regurgitation. Borderline pulmonary hypertension. There is a trivial pericardial effusion present located inferiorly. Nuclear stress: Indications: Chest Pain Impression: Small sized, mild to moderate intensity stress perfusion defect involving the basal and mid inferior wall representing mild ischemia. Exercise ECG is negative for ischemia. Gated EF = 44%. Findings communicated to ordering provider by fax. Impressions: There is severe three vessel coronary artery disease. There is good quality collateral vessel/vessels from the LCA to the Right PDA that are visualized. Recommendations: Optimal medical therapy of patient's disease. Aggressive risk factor modification. Anesthesia Exam O2 Sat Height 1.7 m Weight 58.967 kg O2 Sat by Pulse Oximetry 94 Vital Signs Temp Pulse Resp BP Pulse Ox 97.7 F 95 18 144/82 94 05/06/19 06:53 05/06/19 06:53 05/06/19 06:53 05/06/19 06:53 05/06/19 06:53 Weight: 58kg NPO (# of Hours): >8 - HEENT Pupil (Motor): Pupils equal, EOMI Mallampati: III Teeth: Missing Oral Opening: Greater than 3 - CASH ACCOUNTANT LOC: Oriented CASH ACCOUNTANT Motor: Normal RUE, Normal LUE, Normal RLE, Normal LLE, Normal Face CASH ACCOUNTANT Sensory: Normal: RUE, LUE, RLE, LLE, Face - Cardiac Rhythm: Regular - Pulmonary Breath Sounds: bilateral Clear (distant breath sounds) Respiratory Effort: Labored Anesthesia Assess/Plan ASA Score: 3 Level of consciousness: Cooperative Anesthetic Plan: General (plan GETA, increased risk of periop respiratory complications) Monitoring Plan: Standard Monitors, A-Line Recovery Plan: PACU
[2019-05-06] MEDS ORDERED: *HR* Nitroprusside 50 MG VIAL IVC ONE (07:12)
[2019-05-06] MEDS ORDERED: Nitroglycerin 0 MG/0 ML INFUS..BTL IVC ONE (07:13)
[2019-05-06] MEDS ORDERED: Ringers Solution, Lactated 1,000 ML IVC SCH ×2 (07:15→07:45)
[2019-05-06] MEDS ORDERED: Protamine Sulfate 50 MG/5 ML VIAL IVP ONE ×2 (07:15→10:28)
[2019-05-06] MEDS ORDERED: Bupivacaine-MPF 0.25% 10 ML VIAL ONE (07:15)
[2019-05-06] MEDS ORDERED: Calcium Gluconate 1,000 MG/10 ML VIAL ONE (07:16)
[2019-05-06] MEDS ORDERED: Albuterol 2.5 MG/3 ML NEBULIZER IH ONE (07:34)
--- NOTE | 2019-05-06 07:35 | History & Physical Report ---
Date of Encounter: 05/06/19 Time of Encounter: 07:25 24 Hour HP Update - Instructions Instructions: If the History and Physical is less than 30 days old and was completed prior to A.M. admission and or procedure and has NOT been updated on calendar day of procedure please complete this update prior to performing procedure. - Update Patient reports changes in Medical Condition: No Changes in examination, assessment, or condition: No Changes in Medication: No Preop tests/diagnostics Reviewed: Yes Surgery Remains Indicated: Yes Consent for Planned Operative Procedure(s) Verified: Yes - Pre-Operative Checklist Preoperative Checklist Indicated: Yes Prophylactic Antibiotic Ordered: Yes (vancomycin due to MRSA risk) Home Medications Include Beta Bronwyn: Yes Beta Bronwyn Taken Today (Day of Surgery): Yes Beta Bronwyn Taken Yesterday (Day Prior to Surgery): Yes Is VTE Prophylaxis Indicated?: Yes
[2019-05-06] MEDS ORDERED: Ondansetron 4 MG/2 ML VIAL IVP ONE (07:37)
[2019-05-06] MEDS ORDERED: *HR* Meperidine 25 MG/ML SYRINGE IVP PRN (07:37)
[2019-05-06] MEDS ORDERED: *HR* OxyCODONE Immed Rel 5 MG TABLET PO PRN ×2 (07:37→12:16)
[2019-05-06] MEDS ORDERED: *HR* FentaNYL (PF) 100 MCG/2 ML VIAL IVP PRN (07:37)
[2019-05-06] MEDS ORDERED: Vancomycin 1,000 MG, Sodium Chloride IRRigation 1,000 ML IR ONE (07:45)
[2019-05-06] MEDS ORDERED: *HR* Etomidate 40 MG/20 ML VIAL IVP ONE ×2 (07:54)
[2019-05-06] MEDS ORDERED: *HR* PHENYLEPHRINE 1,000 MCG/10 ML SYRINGE IVP ONE (10:12)
--- NOTE | 2019-05-06 11:22 | Operative Note ---
Date of procedure: 05/06/19 Pre-op diagnosis: 80-99% Left internal carotid artery stenosis Post-op diagnosis: same Procedure: Left carotid endarterectomy with hemashield patch angioplasty Complications: None Anesthesia: GETA Surgeon: Anthony Payne Was there an educational assistant present: No Estimated blood loss (cc): 50 Specimen: Left carotid plaque Condition: stable Disposition: PACU Procedure in Detail: Indications: The patient is a 68-year-old male with a history of carotid stenosis, coronary artery disease, hypertension and peripheral vascular disease and tobacco abuse. The patient was found have an 80-99% left internal carotid artery stenosis. A left carotid endarterectomy was recommended to reduce his risk of cerebrovascular accident. Procedure: The patient was identified in the preoperative area. The risks, benefits, and alternatives of the procedure were discussed and all questions were answered. The patient was then taken to the operating room and placed in supine position on the operating table. After the induction of general endotracheal anesthesia, the patient was cleaned and draped in normal sterile fashion. A longitudinal incision was made anterior to the left sternocleidomastoid muscle. Hemostasis was obtained via electrocautery. Through a process of blunt, sharp, and electrocautery dissection, the platysma was traversed and the jugular vein was identified. The facial vein was dissected, clamped, divided and ligated with a 2-0 silk suture ligature. The jugular vein was retracted to expose the carotid bifurcation. The patient received 3000 units of heparin intravenously at this time. Proximal dissection of the common and external carotid arteries were performed circumferentially. Dissection of the internal carotid was performed circumferentially. Vessels loops were passed around the internal and external carotid and an umbilical tape was passed from the common carotid artery. The patient received an additional 2000 units of heparin intravenously. After waiting adequate time for the heparin to circulate, the vessels were occluded and a longitudinal arteriotomy was made into the common carotid artery and extended into the internal carotid beyond the plaque. The plaque was long, extended distally and was heavily calcified. Vigorous pulsatile retrograde flow was noted from the internal carotid artery upon release of the vessel loop. Due to the rapid pulsatile retrograde flow, no shunt was placed. A dental [place] was then used to perform a standard endarterectomy. Proximal and distal endpoints were inspected. No elevated flaps were noted. A Hemashield patch was cut to fit the defect and sutured in place with running 6-0 Prolene. Prior to completing the closure, each vessel was flushed and then reoccluded. Heparinized saline was infused into the lumen. The patch was c ompleted. Flow was restored in the external carotid artery, followed the common carotid artery, lastly the internal carotid artery was opened. A low resistance arterialized signal was present within the internal carotid artery beyond the patch. Thrombin and Gelfoam were used to aid in hemostasis. Meticulous hemostasis was obtained throughout the wound with electrocautery. Platelet rich and platelet poor plasma were infused into the wounds. The sternocleidomastoid was reapproximated with interrupted 3-0 Vicryl. Platelet rich and platelet poor plasma were infused into the wound. A TLS drain was brought through a separate stab incision and sutured in place with 0 silk suture. The platysma was reapproximated with running 3-0 Vicryl. Local anesthetic was infused in the skin. A 3-0 Monocryl was used to reapproximate the skin. A sterile dressing was applied. The patient was extubated, taken to the recovery room in stable condition.
--- NOTE | 2019-05-06 12:04 | Anesthesia Evaluation Post Op ---
Date of Encounter: 05/06/19 Time of Encounter: 12:03 - Vital Signs Vital Signs: Vital Signs/O2 Sat, Most Current Temp Pulse Resp BP Pulse Ox 97.8 F 82 16 158/75 92 05/06/19 11:34 05/06/19 11:54 05/06/19 11:54 05/06/19 11:54 05/06/19 11:54 - Airway Airway: Non-obstructed - Cardiovascular Regular Rate - Mental Status Mental Status: Alert & Oriented, Answers Appropriately - Pain Pain Scale: 0 Pain Scale used: Numeric (1 - 10) - Nausea Vomiting Nausea Vomiting: Not Present - Hydration Hydration: NPO - Discharge PostOp Status: Transfer Patient to floor
[2019-05-06] MEDS ORDERED: Acetaminophen 325 MG TABLET PO PRN (12:16)
[2019-05-06] MEDS ORDERED: *HR* HYDROcodone/Acet 5/325 mg TABLET PO PRN (12:16)
[2019-05-06] MEDS ORDERED: 0.9 % Sodium Chloride 1,000 ML IVC SCH (12:16)
[2019-05-06] MEDS ORDERED: Naloxone 0.4 MG/ML INJ IVP PRN (12:16)
[2019-05-06] MEDS ORDERED: *HR* Promethazine 25 MG/ML VIAL IVP PRN (12:16)
[2019-05-06] MEDS ORDERED: *HR* Labetalol 20 MG/4 ML SYRINGE IVP PRN (12:16)
[2019-05-06] MEDS: Aspirin Enteric Coated 81 MG Tablet PO SCH (13:00)
[2019-05-06] MEDS: Furosemide 20 MG TABLET PO SCH (13:26)
[2019-05-06] MEDS: *HR* Metoprolol 5 MG/5 ML VIAL IVP SCH ×2 (13:26→17:44)
[2019-05-07] MEDS: *HR* Metoprolol 5 MG/5 ML VIAL IVP SCH ×2 (00:43→05:32)
[2019-05-07] MEDS ORDERED: *HR* Heparin 5,000 UNIT/ML VIAL SQ SCH ×2 (06:00)
--- NOTE | 2019-05-07 06:52 | Discharge Summary ---
Orders not resulted at time of discharge: Pending orders 05/06/19 11:13 Surgical Pathology [PTH] Routine Date of Encounter: 05/07/19 Time of Encounter: 07:50 - Discharge Diagnosis (1) Carotid stenosis, bilateral Priority: Primary Status: Chronic Comments: The patient is postoperative day #1 after a left carotid endarterectomy. He is tolerating a diet. His incision is healing well. He has no neurologic deficits. He will be discharged today. (2) Ischemic cardiomyopathy Priority: Secondary Status: Chronic (3) Essential hypertension Priority: Secondary Status: Chronic Comments: The patient was counseled regarding atherosclerotic risk factor reduction. 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 Abrams is a 68 year old male with a history of carotid stenosis, coronary artery disease, hypertension and peripheral vascular disease and tobacco abuse. The patient was admitted and underwent a right carotid endarterectomy. On postoperative day #1 he was alert with no neurologic deficits. His incisions was healing well. He had no hematoma. Had no neurologic deficits. He was discharged in stable condition without complications. Time spent discussing smoking cessation with patient: 3 to 10 minutes - Time Spent with Patient Total time spent providing and/or coordinating discharge services: - Discharge Medications Prescriptions: New OxyCODONE/APAP 5/325 [Percocet 5/325 MG] 1 each PO Q6HR PRN 5 Days #20 tablet PRN Reason: Postoperative pain Continued Omeprazole [PriLOSEC] 20 mg PO DAILY Lovastatin 40 mg PO HS Lisinopril [Zestril] 5 mg PO DAILY Furosemide [Lasix] 40 mg PO DAILY Ferrous Sulfate [Iron] 325 mg PO BID Clopidogrel [Plavix] 75 mg PO DAILY Carvedilol 1.5625 mg PO BID Aspirin [Lo-Dose Aspirin EC] 81 mg PO DAILY Albuterol Sulfate [Proair Hfa] 1 puff IH Q6H PRN PRN Reason: Shortness Of Breath Home Medications: Albuterol Sulfate [Proair Hfa] 1 puff IH Q6H PRN 04/09/19 [History] Aspirin [Lo-Dose Aspirin EC] 81 mg PO DAILY 04/09/19 [History] Carvedilol 1.5625 mg PO BID 04/09/19 [History] Clopidogrel [Plavix] 75 mg PO DAILY 04/09/19 [History] Ferrous Sulfate [Iron] 325 mg PO BID 04/09/19 [History] Furosemide [Lasix] 40 mg PO DAILY 04/09/19 [History] Lisinopril [Zestril] 5 mg PO DAILY 04/09/19 [History] Lovastatin 40 mg PO HS 04/09/19 [History] Omeprazole [PriLOSEC] 20 mg PO DAILY 04/09/19 [History] OxyCODONE/APAP 5/325 [Percocet 5/325 MG] 1 each PO Q6HR PRN 5 Days #20 tablet 05/07/19 [Rx] Allergies/Adverse Reactions: Allergy/AdvReac Type Severity Reaction Status Date / Time No Known Allergies Allergy Verified 05/06/19 06:49 Date of admission: 05/06/19 12:44 Primary care physician: Eda Vásquez CNP Procedure(s) Performed: Left carotid endarterectomy Discharging clinician: Anthony Payne Anticipated date of discharge: 05/07/19 Exam Vital Signs, Last 4 Hours Temp Pulse Resp BP Pulse Ox 05/07/19 05:30 74 05/07/19 03:29 98.1 F 78 16 130/58 95 - Patient Status Disposition: Home, Self-Care Condition: Good Functional capacity at discharge: independent ambulation Overall status at discharge: patient is back to baseline - Discharge Instructions Follow Up With: Eda Vásquez CNP [Primary Care Provider] - 05/11/19 9:45 am Anthony Payne MD [Partnered Physician] - 06/01/19 2:40 pm Additional Instructions: May remove bandage and shower on 05/07/2019. Wash wound gently and pat dry. No driving for [address] Payne at [phone] with questions or concerns. - Diet and Activity Activity: increase activity as tolerated Diet: advance to your usual diet
[2019-05-07 07:33] VITALS: BP 154/72
[2019-05-07] MEDS: Aspirin Enteric Coated 81 MG Tablet PO SCH (08:04)
[2019-05-07] MEDS: Furosemide 20 MG TABLET PO SCH (08:05)
== END 2019-05-07 09:48 | disposition home or self-care (01) ==
LOC: SAMDAY 06:15 → 2NNU 12:44
PROVIDERS: ADMIT Surgery; ATTEND Surgery

== ENCOUNTER 2021-06-11 16:04 | Inpatient (IN) ==
[2021-06-11] MEDS ORDERED: Naloxone 0.4 MG/ML INJ IVP PRN (18:11)
[2021-06-11] MEDS ORDERED: Melatonin 3 MG TABLET PO PRN (18:11)
[2021-06-11] MEDS ORDERED: Perflutren Lipid Microsphere 1.3 ML in 0.9 % Sodium Chloride 8.7 ML IVP PRN (18:16)
[2021-06-11] MEDS ORDERED: *HR* Heparin 5,000 UNIT/ML VIAL IVP PRN ×2 (18:18)
[2021-06-11] MEDS: Heparin 25,000UNIT/250ML 1/2NS 25,000 UNIT/250 ML IV.SOLN IVC SCH (20:12)
[2021-06-11] MEDS ORDERED: Cefepime HCl 1,000 MG in 0.9 % Sodium Chloride Mini Bag 100 ML IVPB SCH (21:00)
[2021-06-11 21:50] LABS: Adenovirus Not Detected (Not Detect); Bordetella Pertussis Not Detected (Not Detect); Chlamydophila pneumoniae Not Detected (Not Detect); Coronavirus 229E Not Detected (Not Detect); Coronavirus HKU1 Not Detected (Not Detect); Coronavirus NL63 Not Detected (Not Detect); Coronavirus OC43 Not Detected (Not Detect); Human Metapneumovirus Not Detected (Not Detect); Human Rhinovirus/Enterovirus DETECTED (Not Detect); Influenza A Subtype 2009 H1 Not Detected (Not Detect); Influenza B Not Detected (Not Detect); Mycoplasma pneumoniae Not Detected (Not Detect); Parainfluenza Virus 1 Not Detected (Not Detect); Parainfluenza Virus 2 Not Detected (Not Detect); Parainfluenza Virus 3 Not Detected (Not Detect); Parainfluenza Virus 4 Not Detected (Not Detect); Respiratory Syncytial Virus Not Detected (Not Detect); SARS-CoV-2 Not Detected (Not Detect)
[2021-06-11] MEDS: Ipratropium 1 PUFF INHALER IH SCH (22:56)
[2021-06-11] MEDS: MethylPREDNISolone 40 MG/ML VIAL IVP SCH (23:51)
[2021-06-12] MEDS: Ipratropium 1 PUFF INHALER IH SCH (03:44)
[2021-06-12] MEDS ORDERED: 0.9 % Sodium Chloride 500 ML IVC ONE ×2 (04:12→05:22)
[2021-06-12] MEDS ORDERED: 0.9 % Sodium Chloride 500 ML ONE ×2 (04:27→05:26)
[2021-06-12] MEDS ORDERED: Ringers Solution, Lactated 500 ML IVC ONE (05:12)
[2021-06-12 06:00] LABS: Basophils % 0.1 %; Hematocrit 35.8 % (37.5-50.1); Hemoglobin 11.3 g/dL (12.9-16.9); Immature Granulocytes % 0.6 % (0-4); Lymphocytes # 0.4 K/mcL (0.6-4.6); Mean Corpuscular HGB Conc 31.6 g/dL (31.6-35.5); Mean Corpuscular Hemoglobin 30.4 pg (28.0-33.3); Mean Corpuscular Volume 96.2 fL (83.0-100.0); Mean Platelet Volume 10.2 fL (9.4-12.4); Monocytes # 0.5 K/mcL (0.0-1.3); Monocytes % 3.7 %; Neutrophils # 12.3 K/mcL (1.6-8.9); Platelet Count 201 K/mcL (140-400); Red Blood Count 3.72 M/mcL (4.19-5.50); Red Cell Distribution Width 13.5 % (11.5-14.5); Segmented Neutrophils % 92.6 %; White Blood Count 13.3 K/mcL (4.3-11.1)
[2021-06-12] MEDS ORDERED: *HR* Heparin 5,000 UNIT/ML VIAL SQ SCH (06:00)
[2021-06-12 06:05] LABS: ABG Base Excess -1 mEq/L (-2 to 3); ABG HCO3 28 mEq/L (21-27); ABG Oxygen Saturation 95 % (95-98); ABG PCO2 64 mmHg (35-45); ABG PH 7.25 pH Units (7.32-7.45); ABG PO2 91 mmHg (85-104); ABG TCO2 30 mEq/L (20-26)
[2021-06-12 06:11] LABS: INR 1.1; Prothrombin Time 12.2 Seconds (9.4-12.1)
[2021-06-12 06:19] LABS: Calcium 8.5 mg/dL (8.6-10.3); Potassium 3.7 mEq/L (3.5-5.1)
[2021-06-12] MEDS ORDERED: Norepinephrine 4 MG/254 ML IV.SOLN IVC SCH (06:45)
[2021-06-12] MEDS: Albumin Human 5% 12.5 GM/250 ML IV.SOLN IVC SCH ×2 (07:15→08:25)
[2021-06-12] MEDS: Piperacillin/Tazobactam 3.375 GM in 0.9 % Sodium Chloride Mini Bag 100 ML IVPB SCH ×3 (08:28→21:59)
[2021-06-12] MEDS: Aspirin 81 MG TAB.CHEW PO SCH (08:28)
[2021-06-12] MEDS: MethylPREDNISolone 40 MG/ML VIAL IVP SCH ×2 (08:28→15:47)
[2021-06-12 20:42] LABS: BUN/Creatinine Ratio 34 (6-26); Blood Urea Nitrogen 46 mg/dL (8-23); Calcium 8.9 mg/dL (8.6-10.3); Carbon Dioxide 28 mEq/L (23-29); Chloride 104 mEq/L (98-107); Glucose 140 mg/dL (70-105); Osmolality,Calculated 302 (280-300); Potassium 3.7 mEq/L (3.5-5.1); Sodium 139 mEq/L (136-145); eGFR For African Americans > 60 (> 60); eGFR For Non-African Americans 51 (> 60)
[2021-06-13] MEDS: MethylPREDNISolone 40 MG/ML VIAL IVP SCH ×2 (01:25→08:14)
[2021-06-13] MEDS: Heparin 25,000UNIT/250ML 1/2NS 25,000 UNIT/250 ML IV.SOLN IVC SCH ×2 (01:27→12:20)
[2021-06-13 05:00] LABS: Hematocrit 32.7 % (37.5-50.1); Hemoglobin 10.4 g/dL (12.9-16.9); Mean Corpuscular HGB Conc 31.8 g/dL (31.6-35.5); Mean Corpuscular Hemoglobin 30.9 pg (28.0-33.3); Mean Platelet Volume 10.2 fL (9.4-12.4); Platelet Count 240 K/mcL (140-400); Red Blood Count 3.37 M/mcL (4.19-5.50); Red Cell Distribution Width 13.4 % (11.5-14.5); White Blood Count 14.1 K/mcL (4.3-11.1)
[2021-06-13 05:20] LABS: Albumin 3.1 g/dL (3.5-5.7); Albumin/Globulin Ratio 1.3 (1.1-2.2); Bilirubin,Total 0.4 mg/dL (0.3-1.0); Calcium 8.6 mg/dL (8.6-10.3); Globulin 2.3 g/dL (2.4-3.5); Potassium 3.9 mEq/L (3.5-5.1); Total Protein 5.4 g/dL (6.4-8.9)
[2021-06-13] MEDS: Piperacillin/Tazobactam 3.375 GM in 0.9 % Sodium Chloride Mini Bag 100 ML IVPB SCH ×3 (06:07→20:41)
[2021-06-13] MEDS: Albumin Human 5% 12.5 GM/250 ML IV.SOLN IVC SCH ×2 (06:31→10:44)
[2021-06-13] MEDS: Aspirin 81 MG TAB.CHEW PO SCH (08:14)
[2021-06-14] MEDS: Piperacillin/Tazobactam 3.375 GM in 0.9 % Sodium Chloride Mini Bag 100 ML IVPB SCH ×3 (05:17→21:44)
[2021-06-14 06:02] LABS: Hematocrit 29.9 % (37.5-50.1); Hemoglobin 9.7 g/dL (12.9-16.9); Mean Corpuscular HGB Conc 32.4 g/dL (31.6-35.5); Mean Corpuscular Hemoglobin 31.4 pg (28.0-33.3); Mean Corpuscular Volume 96.8 fL (83.0-100.0); Mean Platelet Volume 10.2 fL (9.4-12.4); Platelet Count 203 K/mcL (140-400); Red Blood Count 3.09 M/mcL (4.19-5.50); Red Cell Distribution Width 13.3 % (11.5-14.5); White Blood Count 12.6 K/mcL (4.3-11.1)
[2021-06-14 06:57] LABS: Alanine Aminotransferase 8 Units/L (7-52); Albumin 3.2 g/dL (3.5-5.7); Albumin/Globulin Ratio 1.6 (1.1-2.2); Alkaline Phosphatase 52 Units/L (34-104); Aspartate Amino Transferase 19 Units/L (13-39); BUN/Creatinine Ratio 33 (6-26); Bilirubin,Total 0.3 mg/dL (0.3-1.0); Blood Urea Nitrogen 44 mg/dL (8-23); Calcium 8.5 mg/dL (8.6-10.3); Carbon Dioxide 28 mEq/L (23-29); Chloride 107 mEq/L (98-107); Glucose 135 mg/dL (70-105); Osmolality,Calculated 305 (280-300); Potassium 3.8 mEq/L (3.5-5.1); Sodium 141 mEq/L (136-145); Total Protein 5.2 g/dL (6.4-8.9); eGFR For African Americans > 60 (> 60); eGFR For Non-African Americans 53 (> 60)
[2021-06-14] MEDS: Aspirin 81 MG TAB.CHEW PO SCH (07:28)
[2021-06-14] MEDS ORDERED: MethylPREDNISolone 40 MG/ML VIAL IVP SCH (09:00)
[2021-06-14] MEDS ORDERED: E-Z-HD (BARIUM SULF) SUSPENSION PO ONE (09:25)
[2021-06-14] MEDS ORDERED: E-Z-PAQUE (BARIUM SULF) SUSP 1 BOTTLE PO ONE (09:25)
[2021-06-14] MEDS ORDERED: Heparin 25,000UNIT/250ML 1/2NS 25,000 UNIT/250 ML IV.SOLN IVC SCH (10:18)
[2021-06-14] MEDS ORDERED: *HR* Heparin 5,000 UNIT/ML VIAL IVP PRN ×2 (10:18)
[2021-06-14] MEDS ORDERED: Naloxone 0.4 MG/ML INJ IVP PRN (10:18)
[2021-06-14] MEDS ORDERED: Melatonin 3 MG TABLET PO PRN (10:18)
[2021-06-15 04:10] LABS: Hematocrit 30.3 % (37.5-50.1); Hemoglobin 9.6 g/dL (12.9-16.9); Mean Corpuscular HGB Conc 31.7 g/dL (31.6-35.5); Mean Corpuscular Hemoglobin 30.2 pg (28.0-33.3); Mean Corpuscular Volume 95.3 fL (83.0-100.0); Platelet Count 205 K/mcL (140-400); Red Blood Count 3.18 M/mcL (4.19-5.50); Red Cell Distribution Width 13.1 % (11.5-14.5); White Blood Count 11.8 K/mcL (4.3-11.1)
[2021-06-15 04:24] LABS: Alanine Aminotransferase 9 Units/L (7-52); Albumin 3.1 g/dL (3.5-5.7); Albumin/Globulin Ratio 1.6 (1.1-2.2); Alkaline Phosphatase 41 Units/L (34-104); Aspartate Amino Transferase 17 Units/L (13-39); BUN/Creatinine Ratio 26 (6-26); Bilirubin,Total 0.4 mg/dL (0.3-1.0); Blood Urea Nitrogen 33 mg/dL (8-23); Calcium 8.5 mg/dL (8.6-10.3); Carbon Dioxide 30 mEq/L (23-29); Chloride 107 mEq/L (98-107); Glucose 120 mg/dL (70-105); Osmolality,Calculated 300 (280-300); Potassium 3.9 mEq/L (3.5-5.1); Sodium 141 mEq/L (136-145); Total Protein 5.1 g/dL (6.4-8.9); eGFR For African Americans > 60 (> 60); eGFR For Non-African Americans 56 (> 60)
[2021-06-15] MEDS: Piperacillin/Tazobactam 3.375 GM in 0.9 % Sodium Chloride Mini Bag 100 ML IVPB SCH (05:53)
[2021-06-15] MEDS: Aspirin 81 MG TAB.CHEW PO SCH (08:58)
[2021-06-15] MEDS: MethylPREDNISolone 40 MG/ML VIAL IVP SCH (08:59)
[2021-06-15] MEDS: cefTRIAXone 2,000 MG in Water for inj. (sterile) 20 ML IVP SCH (12:41)
[2021-06-15] MEDS: Azithromycin 500 MG in 0.9 % Sodium Chloride 250 ML IVPB SCH (12:42)
[2021-06-16] MEDS: *HR* Heparin 5,000 UNIT/ML VIAL SQ SCH ×3 (05:04→17:07)
[2021-06-16] MEDS: lisinopriL 20 MG TABLET PO SCH (09:02)
[2021-06-16] MEDS: MethylPREDNISolone 40 MG/ML VIAL IVP SCH ×2 (09:02→17:08)
[2021-06-16] MEDS: Aspirin 81 MG TAB.CHEW PO SCH (09:02)
[2021-06-16 10:10] LABS: Basophils # 0.1 K/mcL (0.0-0.2); Basophils % 0.3 %; Eosinophils % 0.1 %; Hematocrit 39.4 % (37.5-50.1); Immature Granulocytes % 1.9 % (0-4); Lymphocytes # 0.8 K/mcL (0.6-4.6); Lymphocytes % 4.4 %; Mean Corpuscular Hemoglobin 30.6 pg (28.0-33.3); Mean Corpuscular Volume 92.7 fL (83.0-100.0); Monocytes # 1.1 K/mcL (0.0-1.3); Neutrophils # 15.9 K/mcL (1.6-8.9); Platelet Count 248 K/mcL (140-400); Red Blood Count 4.25 M/mcL (4.19-5.50); Red Cell Distribution Width 12.7 % (11.5-14.5); Segmented Neutrophils % 87.3 %
[2021-06-16 10:16] LABS: White Blood Count 18.2 K/mcL (4.3-11.1)
[2021-06-16 10:25] LABS: BUN/Creatinine Ratio 21 (6-26); Blood Urea Nitrogen 24 mg/dL (8-23); Calcium 9.1 mg/dL (8.6-10.3); Carbon Dioxide 30 mEq/L (23-29); Chloride 105 mEq/L (98-107); Glucose 113 mg/dL (70-105); Osmolality,Calculated 299 (280-300); Potassium 3.6 mEq/L (3.5-5.1); Sodium 142 mEq/L (136-145); eGFR For African Americans > 60 (> 60); eGFR For Non-African Americans > 60 (> 60)
[2021-06-16] MEDS: Azithromycin 500 MG in 0.9 % Sodium Chloride 250 ML IVPB SCH (11:43)
[2021-06-16] MEDS: cefTRIAXone 2,000 MG in Water for inj. (sterile) 20 ML IVP SCH (11:43)
[2021-06-16] MEDS: amLODIPine 5 MG TABLET PO SCH (11:44)
[2021-06-16] MEDS: carvediloL 6.25 MG TABLET PO SCH (17:07)
[2021-06-16] MEDS ORDERED: LOVASTATIN 40 MG PO SCH (21:00)
[2021-06-17] MEDS: MethylPREDNISolone 40 MG/ML VIAL IVP SCH ×3 (00:33→18:07)
[2021-06-17] MEDS: *HR* Heparin 5,000 UNIT/ML VIAL SQ SCH ×2 (05:30→18:08)
[2021-06-17 06:00] LABS: Basophils % 0.2 %; Hematocrit 34.9 % (37.5-50.1); Hemoglobin 11.5 g/dL (12.9-16.9); Immature Granulocytes % 1.3 % (0-4); Lymphocytes # 0.6 K/mcL (0.6-4.6); Lymphocytes % 4.6 %; Mean Corpuscular Hemoglobin 30.6 pg (28.0-33.3); Mean Corpuscular Volume 92.8 fL (83.0-100.0); Mean Platelet Volume 10.2 fL (9.4-12.4); Monocytes # 0.3 K/mcL (0.0-1.3); Monocytes % 2.3 %; Platelet Count 216 K/mcL (140-400); Red Blood Count 3.76 M/mcL (4.19-5.50); Segmented Neutrophils % 91.6 %
[2021-06-17 06:20] LABS: BUN/Creatinine Ratio 31 (6-26); Blood Urea Nitrogen 32 mg/dL (8-23); Calcium 8.7 mg/dL (8.6-10.3); Carbon Dioxide 32 mEq/L (23-29); Chloride 106 mEq/L (98-107); Glucose 150 mg/dL (70-105); Magnesium 2.1 mg/dL (1.6-2.6); Osmolality,Calculated 304 (280-300); Phosphorous 2.8 mg/dL (2.7-4.5); Potassium 4.2 mEq/L (3.5-5.1); Sodium 142 mEq/L (136-145); eGFR For African Americans > 60 (> 60); eGFR For Non-African Americans > 60 (> 60)
[2021-06-17] MEDS: carvediloL 6.25 MG TABLET PO SCH ×2 (09:38→18:08)
[2021-06-17] MEDS: Aspirin 81 MG TAB.CHEW PO SCH (09:38)
[2021-06-17] MEDS: amLODIPine 5 MG TABLET PO SCH (09:39)
[2021-06-17] MEDS: levoFLOXacin 750 MG/150 ML 750 MG/150 ML BAG IVPB SCH (11:58)
[2021-06-18] MEDS: MethylPREDNISolone 40 MG/ML VIAL IVP SCH ×3 (00:23→17:16)
[2021-06-18] MEDS: *HR* Heparin 5,000 UNIT/ML VIAL SQ SCH ×2 (05:18→17:16)
[2021-06-18 06:40] LABS: Basophils # 0.1 K/mcL (0.0-0.2); Basophils % 0.2 %; Hematocrit 36.4 % (37.5-50.1); Hemoglobin 12.2 g/dL (12.9-16.9); Immature Granulocytes % 1.8 % (0-4); Lymphocytes # 0.9 K/mcL (0.6-4.6); Lymphocytes % 3.9 %; Mean Corpuscular HGB Conc 33.5 g/dL (31.6-35.5); Mean Corpuscular Hemoglobin 30.7 pg (28.0-33.3); Mean Corpuscular Volume 91.5 fL (83.0-100.0); Mean Platelet Volume 10.2 fL (9.4-12.4); Monocytes # 0.6 K/mcL (0.0-1.3); Monocytes % 2.6 %; Neutrophils # 21.1 K/mcL (1.6-8.9); Platelet Count 236 K/mcL (140-400); Red Blood Count 3.98 M/mcL (4.19-5.50); Red Cell Distribution Width 13.1 % (11.5-14.5); Segmented Neutrophils % 91.5 %
[2021-06-18 06:55] LABS: BUN/Creatinine Ratio 38 (6-26); Blood Urea Nitrogen 42 mg/dL (8-23); Calcium 8.9 mg/dL (8.6-10.3); Carbon Dioxide 30 mEq/L (23-29); Chloride 107 mEq/L (98-107); Glucose 158 mg/dL (70-105); Osmolality,Calculated 308 (280-300); Potassium 4.9 mEq/L (3.5-5.1); Sodium 142 mEq/L (136-145); eGFR For African Americans > 60 (> 60); eGFR For Non-African Americans > 60 (> 60)
[2021-06-18] MEDS: Aspirin 81 MG TAB.CHEW PO SCH (09:06)
[2021-06-18] MEDS: carvediloL 6.25 MG TABLET PO SCH ×2 (09:07→17:15)
[2021-06-18] MEDS: amLODIPine 5 MG TABLET PO SCH (09:07)
[2021-06-18] MEDS: lisinopriL 20 MG TABLET PO SCH (09:07)
[2021-06-18] MEDS: levoFLOXacin 750 MG/150 ML 750 MG/150 ML BAG IVPB SCH (09:07)
[2021-06-19] MEDS: MethylPREDNISolone 40 MG/ML VIAL IVP SCH ×2 (00:52→08:50)
[2021-06-19] MEDS: *HR* Heparin 5,000 UNIT/ML VIAL SQ SCH ×2 (05:47→16:32)
[2021-06-19 06:45] LABS: Hematocrit 37.1 % (37.5-50.1); Hemoglobin 11.9 g/dL (12.9-16.9); Mean Corpuscular HGB Conc 32.1 g/dL (31.6-35.5); Mean Corpuscular Hemoglobin 30.1 pg (28.0-33.3); Mean Corpuscular Volume 93.9 fL (83.0-100.0); Mean Platelet Volume 10.3 fL (9.4-12.4); Platelet Count 263 K/mcL (140-400); Red Blood Count 3.95 M/mcL (4.19-5.50); Red Cell Distribution Width 13.2 % (11.5-14.5); White Blood Count 19.8 K/mcL (4.3-11.1)
[2021-06-19 07:02] LABS: BUN/Creatinine Ratio 39 (6-26); Blood Urea Nitrogen 43 mg/dL (8-23); Calcium 9.1 mg/dL (8.6-10.3); Carbon Dioxide 32 mEq/L (23-29); Chloride 106 mEq/L (98-107); Glucose 165 mg/dL (70-105); Osmolality,Calculated 309 (280-300); Potassium 4.8 mEq/L (3.5-5.1); Sodium 142 mEq/L (136-145); eGFR For African Americans > 60 (> 60); eGFR For Non-African Americans > 60 (> 60)
[2021-06-19] MEDS: levoFLOXacin 750 MG/150 ML 750 MG/150 ML BAG IVPB SCH (08:51)
[2021-06-19] MEDS: Aspirin 81 MG TAB.CHEW PO SCH (08:51)
[2021-06-19] MEDS: carvediloL 6.25 MG TABLET PO SCH ×2 (08:51→16:32)
[2021-06-19] MEDS: amLODIPine 5 MG TABLET PO SCH (08:52)
[2021-06-19] MEDS: lisinopriL 20 MG TABLET PO SCH (08:52)
[2021-06-19] MEDS: Ipratropium/Albuterol Neb 3 ML IH SCH ×3 (14:58→22:34)
[2021-06-19 19:35] LABS: C.difficile Toxin A/B Gene PCR Not detected (Not detect); Campylobacter by PCR Not detected (Not detect); Plesiomonas shigelloides PCR Not detected (Not detect); Salmonella PCR Not detected (Not detect)
[2021-06-19 19:36] LABS: Adenovirus F 40/41 PCR Not detected (Not detect); Astrovirus PCR Not detected (Not detect); Cryptosporidium by PCR Not detected (Not detect); Cyclospora cayetanensis PCR Not detected (Not detect); E. coli O157 by PCR Not detected (Not detect); Entamoeba histolytica PCR Not detected (Not detect); Enteroaggregative E.coli(EAEC) Not detected (Not detect); Enteropathogenic E.coli(EPEC) Not detected (Not detect); Enterotoxigenic E.coli (ETEC) Not detected (Not detect); Giardia lamblia PCR Not detected (Not detect); Norovirus GI/GII PCR Not detected (Not detect); Rotavirus A PCR Not detected (Not detect); Sapovirus PCR Not detected (Not detect); Shig/EnteroinvasiveE coli EIEC Not detected (Not detect); Shigalike tox-prod E coli STEC Not detected (Not detect); Vibrio PCR Not detected (Not detect); Vibrio cholerae PCR Not detected (Not detect); Yersinia enterocolitica PCR Not detected (Not detect)
[2021-06-20 00:56] LABS: Hematocrit 34.4 % (37.5-50.1); Hemoglobin 11.1 g/dL (12.9-16.9); Mean Corpuscular HGB Conc 32.3 g/dL (31.6-35.5); Mean Corpuscular Hemoglobin 30.4 pg (28.0-33.3); Mean Corpuscular Volume 94.2 fL (83.0-100.0); Mean Platelet Volume 10.1 fL (9.4-12.4); Platelet Count 250 K/mcL (140-400); Red Blood Count 3.65 M/mcL (4.19-5.50); Red Cell Distribution Width 13.4 % (11.5-14.5); White Blood Count 17.6 K/mcL (4.3-11.1)
[2021-06-20] MEDS: Ipratropium/Albuterol Neb 3 ML IH SCH ×4 (03:45→21:34)
[2021-06-20] MEDS: *HR* Heparin 5,000 UNIT/ML VIAL SQ SCH ×2 (06:46→17:18)
[2021-06-20] MEDS ORDERED: levoFLOXacin 750 MG TABLET PO SCH (09:00)
[2021-06-20] MEDS: predniSONE 20 MG TABLET PO SCH (09:08)
[2021-06-20] MEDS: Aspirin 81 MG TAB.CHEW PO SCH (09:08)
[2021-06-20] MEDS: carvediloL 6.25 MG TABLET PO SCH ×2 (09:08→17:16)
[2021-06-20] MEDS: amLODIPine 5 MG TABLET PO SCH (09:08)
[2021-06-20] MEDS: lisinopriL 20 MG TABLET PO SCH (09:09)
[2021-06-21] MEDS: Ipratropium/Albuterol Neb 3 ML IH SCH ×4 (04:05→22:01)
[2021-06-21] MEDS: *HR* Heparin 5,000 UNIT/ML VIAL SQ SCH ×2 (05:12→16:50)
[2021-06-21] MEDS: amLODIPine 5 MG TABLET PO SCH (07:29)
[2021-06-21] MEDS: predniSONE 20 MG TABLET PO SCH (07:30)
[2021-06-21] MEDS: carvediloL 6.25 MG TABLET PO SCH ×2 (07:30→16:50)
[2021-06-21] MEDS: Aspirin 81 MG TAB.CHEW PO SCH (07:30)
[2021-06-21] MEDS: lisinopriL 20 MG TABLET PO SCH (07:30)
[2021-06-21 08:07] LABS: Basophils % 0.1 %; Hematocrit 38.8 % (37.5-50.1); Hemoglobin 12.1 g/dL (12.9-16.9); Immature Granulocytes % 0.7 % (0-4); Lymphocytes # 0.7 K/mcL (0.6-4.6); Lymphocytes % 3.9 %; Mean Corpuscular HGB Conc 31.2 g/dL (31.6-35.5); Mean Corpuscular Hemoglobin 30.2 pg (28.0-33.3); Mean Corpuscular Volume 96.8 fL (83.0-100.0); Mean Platelet Volume 10.1 fL (9.4-12.4); Monocytes # 0.8 K/mcL (0.0-1.3); Monocytes % 4.4 %; Neutrophils # 15.8 K/mcL (1.6-8.9); Platelet Count 258 K/mcL (140-400); Red Blood Count 4.01 M/mcL (4.19-5.50); Red Cell Distribution Width 13.7 % (11.5-14.5); Segmented Neutrophils % 90.9 %; White Blood Count 17.4 K/mcL (4.3-11.1)
[2021-06-21 08:29] LABS: Alanine Aminotransferase 101 Units/L (7-52); Albumin 3.3 g/dL (3.5-5.7); Albumin/Globulin Ratio 1.7 (1.1-2.2); Alkaline Phosphatase 56 Units/L (34-104); Aspartate Amino Transferase 42 Units/L (13-39); BUN/Creatinine Ratio 35 (6-26); Bilirubin,Total 0.6 mg/dL (0.3-1.0); Blood Urea Nitrogen 41 mg/dL (8-23); Carbon Dioxide 33 mEq/L (23-29); Chloride 103 mEq/L (98-107); Glucose 144 mg/dL (70-105); Osmolality,Calculated 303 (280-300); Potassium 5.6 mEq/L (3.5-5.1); Sodium 140 mEq/L (136-145); Total Protein 5.3 g/dL (6.4-8.9); eGFR For African Americans > 60 (> 60); eGFR For Non-African Americans > 60 (> 60)
[2021-06-21] MEDS: Furosemide 40 MG/4 ML VIAL IVP SCH ×2 (11:54→20:42)
[2021-06-22] MEDS: Ipratropium/Albuterol Neb 3 ML IH SCH ×4 (04:06→19:43)
[2021-06-22] MEDS: *HR* Heparin 5,000 UNIT/ML VIAL SQ SCH ×2 (05:12→16:19)
[2021-06-22 05:46] LABS: Hematocrit 38.5 % (37.5-50.1); Hemoglobin 12.6 g/dL (12.9-16.9); Mean Corpuscular HGB Conc 32.7 g/dL (31.6-35.5); Mean Corpuscular Hemoglobin 30.7 pg (28.0-33.3); Mean Corpuscular Volume 93.7 fL (83.0-100.0); Mean Platelet Volume 9.9 fL (9.4-12.4); Platelet Count 289 K/mcL (140-400); Red Blood Count 4.11 M/mcL (4.19-5.50); Red Cell Distribution Width 13.9 % (11.5-14.5)
[2021-06-22 06:08] LABS: Albumin 3.3 g/dL (3.5-5.7); Albumin/Globulin Ratio 1.5 (1.1-2.2); Bilirubin,Total 0.6 mg/dL (0.3-1.0); Globulin 2.2 g/dL (2.4-3.5); Total Protein 5.5 g/dL (6.4-8.9)
[2021-06-22] MEDS: predniSONE 20 MG TABLET PO SCH (10:06)
[2021-06-22] MEDS: Aspirin 81 MG TAB.CHEW PO SCH (10:07)
[2021-06-22] MEDS: amLODIPine 5 MG TABLET PO SCH (10:08)
[2021-06-22] MEDS: carvediloL 6.25 MG TABLET PO SCH ×2 (10:08→16:20)
[2021-06-23 03:27] LABS: Hematocrit 34.3 % (37.5-50.1); Hemoglobin 11.2 g/dL (12.9-16.9); Mean Corpuscular HGB Conc 32.7 g/dL (31.6-35.5); Mean Corpuscular Hemoglobin 30.5 pg (28.0-33.3); Mean Corpuscular Volume 93.5 fL (83.0-100.0); Mean Platelet Volume 10.1 fL (9.4-12.4); Platelet Count 248 K/mcL (140-400); Red Blood Count 3.67 M/mcL (4.19-5.50); White Blood Count 17.8 K/mcL (4.3-11.1)
[2021-06-23 03:33] LABS: Calcium 8.2 mg/dL (8.6-10.3); Potassium 5.3 mEq/L (3.5-5.1)
[2021-06-23] MEDS: Ipratropium/Albuterol Neb 3 ML IH SCH ×4 (03:42→19:41)
[2021-06-23] MEDS: *HR* Heparin 5,000 UNIT/ML VIAL SQ SCH ×2 (04:32→21:59)
[2021-06-23] MEDS: Furosemide 40 MG TABLET PO SCH ×2 (10:00→10:06)
[2021-06-23] MEDS: predniSONE 20 MG TABLET PO SCH (10:06)
[2021-06-23] MEDS: amLODIPine 5 MG TABLET PO SCH ×2 (10:06→11:55)
[2021-06-23] MEDS: carvediloL 6.25 MG TABLET PO SCH ×2 (10:06→17:32)
[2021-06-23] MEDS: Aspirin 81 MG TAB.CHEW PO SCH (10:06)
[2021-06-24] MEDS: Ipratropium/Albuterol Neb 3 ML IH SCH ×5 (03:39→20:22)
[2021-06-24 04:44] LABS: Hematocrit 36.6 % (37.5-50.1); Mean Corpuscular HGB Conc 32.8 g/dL (31.6-35.5); Mean Corpuscular Hemoglobin 30.9 pg (28.0-33.3); Mean Corpuscular Volume 94.3 fL (83.0-100.0); Platelet Count 232 K/mcL (140-400); Red Blood Count 3.88 M/mcL (4.19-5.50); Red Cell Distribution Width 14.3 % (11.5-14.5); White Blood Count 18.1 K/mcL (4.3-11.1)
[2021-06-24 04:52] LABS: BUN/Creatinine Ratio 44 (6-26); Blood Urea Nitrogen 61 mg/dL (8-23); Calcium 8.4 mg/dL (8.6-10.3); Carbon Dioxide 28 mEq/L (23-29); Chloride 104 mEq/L (98-107); Glucose 156 mg/dL (70-105); Osmolality,Calculated 304 (280-300); Potassium 5.9 mEq/L (3.5-5.1); Sodium 137 mEq/L (136-145); eGFR For African Americans > 60 (> 60); eGFR For Non-African Americans 50 (> 60)
[2021-06-24] MEDS: *HR* Heparin 5,000 UNIT/ML VIAL SQ SCH ×2 (06:11→17:53)
[2021-06-24] MEDS ORDERED: *HR* Dextrose 50 % in Water (Vial) 50 ML VIAL IVP ONE (08:52)
[2021-06-24] MEDS ORDERED: Insulin Human Regular 10 UNIT in 0.9 % Sodium Chloride 10 ML IV ONE (08:52)
[2021-06-24] MEDS: carvediloL 6.25 MG TABLET PO SCH ×2 (09:51→17:54)
[2021-06-24] MEDS: predniSONE 20 MG TABLET PO SCH (09:51)
[2021-06-24] MEDS: Aspirin 81 MG TAB.CHEW PO SCH (09:51)
[2021-06-24] MEDS: lisinopriL 20 MG TABLET PO SCH (09:53)
[2021-06-24] MEDS: amLODIPine 5 MG TABLET PO SCH (09:53)
[2021-06-25] MEDS: Ipratropium/Albuterol Neb 3 ML IH SCH ×4 (04:02→20:30)
[2021-06-25 06:20] LABS: Hematocrit 36.7 % (37.5-50.1); Mean Corpuscular HGB Conc 32.7 g/dL (31.6-35.5); Mean Corpuscular Hemoglobin 30.8 pg (28.0-33.3); Mean Corpuscular Volume 94.3 fL (83.0-100.0); Mean Platelet Volume 9.8 fL (9.4-12.4); Platelet Count 202 K/mcL (140-400); Red Blood Count 3.89 M/mcL (4.19-5.50); Red Cell Distribution Width 14.3 % (11.5-14.5); White Blood Count 17.1 K/mcL (4.3-11.1)
[2021-06-25] MEDS: *HR* Heparin 5,000 UNIT/ML VIAL SQ SCH ×2 (06:35→18:25)
[2021-06-25 06:39] LABS: BUN/Creatinine Ratio 42 (6-26); Blood Urea Nitrogen 58 mg/dL (8-23); Calcium 8.9 mg/dL (8.6-10.3); Carbon Dioxide 29 mEq/L (23-29); Chloride 104 mEq/L (98-107); Glucose 149 mg/dL (70-105); Osmolality,Calculated 303 (280-300); Potassium 5.8 mEq/L (3.5-5.1); Sodium 137 mEq/L (136-145); eGFR For African Americans > 60 (> 60); eGFR For Non-African Americans 51 (> 60)
[2021-06-25] MEDS ORDERED: Insulin Human Regular 10 UNIT in 0.9 % Sodium Chloride 10 ML IV ONE (07:28)
[2021-06-25] MEDS ORDERED: *HR* Dextrose 50 % in Water (Vial) 50 ML VIAL IVP ONE (07:30)
[2021-06-25] MEDS: lisinopriL 20 MG TABLET PO SCH (09:19)
[2021-06-25] MEDS: carvediloL 6.25 MG TABLET PO SCH ×2 (09:24→18:25)
[2021-06-25] MEDS: predniSONE 20 MG TABLET PO SCH (09:24)
[2021-06-25] MEDS: Aspirin 81 MG TAB.CHEW PO SCH (09:24)
[2021-06-25] MEDS: amLODIPine 5 MG TABLET PO SCH (20:43)
[2021-06-26 02:57] LABS: Hematocrit 38.7 % (37.5-50.1); Hemoglobin 11.9 g/dL (12.9-16.9); Mean Corpuscular HGB Conc 30.7 g/dL (31.6-35.5); Mean Corpuscular Hemoglobin 30.4 pg (28.0-33.3); Mean Corpuscular Volume 98.7 fL (83.0-100.0); Mean Platelet Volume 9.9 fL (9.4-12.4); Platelet Count 173 K/mcL (140-400); Red Blood Count 3.92 M/mcL (4.19-5.50); Red Cell Distribution Width 14.4 % (11.5-14.5); White Blood Count 17.3 K/mcL (4.3-11.1)
[2021-06-26 03:33] LABS: Calcium 8.2 mg/dL (8.6-10.3); Potassium 5.6 mEq/L (3.5-5.1)
[2021-06-26] MEDS: Ipratropium/Albuterol Neb 3 ML IH SCH ×4 (03:45→20:18)
[2021-06-26] MEDS: *HR* Heparin 5,000 UNIT/ML VIAL SQ SCH ×2 (05:05→16:30)
[2021-06-26] MEDS: Aspirin 81 MG TAB.CHEW PO SCH (10:10)
[2021-06-26] MEDS: predniSONE 20 MG TABLET PO SCH (10:10)
[2021-06-26] MEDS: Furosemide 40 MG TABLET PO SCH (10:10)
[2021-06-26] MEDS: carvediloL 6.25 MG TABLET PO SCH ×2 (10:11→16:30)
[2021-06-26] MEDS ORDERED: 0.9 % Sodium Chloride 500 ML IVC ONE (11:41)
[2021-06-26] MEDS: SODIUM ZIRCONIUM CYCLOSILICATE 5 GM POWD.PACK PO SCH (12:33)
[2021-06-27 03:34] LABS: Calcium 8.2 mg/dL (8.6-10.3); Potassium 4.8 mEq/L (3.5-5.1)
[2021-06-27] MEDS: Ipratropium/Albuterol Neb 3 ML IH SCH ×4 (03:59→22:03)
[2021-06-27] MEDS: *HR* Heparin 5,000 UNIT/ML VIAL SQ SCH ×2 (05:35→17:26)
[2021-06-27 05:52] LABS: Hematocrit 37.7 % (37.5-50.1); Hemoglobin 12.5 g/dL (12.9-16.9); Mean Corpuscular HGB Conc 33.2 g/dL (31.6-35.5); Mean Corpuscular Hemoglobin 30.8 pg (28.0-33.3); Mean Corpuscular Volume 92.9 fL (83.0-100.0); Mean Platelet Volume 10.1 fL (9.4-12.4); Platelet Count 176 K/mcL (140-400); Red Blood Count 4.06 M/mcL (4.19-5.50); Red Cell Distribution Width 14.3 % (11.5-14.5)
[2021-06-27] MEDS: SODIUM ZIRCONIUM CYCLOSILICATE 5 GM POWD.PACK PO SCH (07:44)
[2021-06-27] MEDS: Aspirin 81 MG TAB.CHEW PO SCH (07:44)
[2021-06-27] MEDS: predniSONE 20 MG TABLET PO SCH (07:45)
[2021-06-27] MEDS: carvediloL 6.25 MG TABLET PO SCH ×2 (07:45→17:27)
[2021-06-28 00:22] LABS: Bacteria,Urine Few per hpf (None-Few); Bilirubin,Urine Negative (Negative); Blood,Urine Large (Negative); Clarity,Urine Clear (Clear); Color,Urine Light-Yellow (Yellow); Glucose,Urine (UA) 50 mg/dL (Normal); Ketones,Urine Negative (Negative); Leukocyte Esterase,Urine Negative (Negative); Mucus,Urine Few per lpf (None-Few); Nitrite,Urine Negative (Negative); Protein,Urine 50 mg/dL (Neg-Trace); RBC,Urine 0-3 per hpf (0-3); Urobilinogen,Urine Normal (Normal)
[2021-06-28 00:56] LABS: Hematocrit 35.8 % (37.5-50.1); Hemoglobin 11.5 g/dL (12.9-16.9); Mean Corpuscular HGB Conc 32.1 g/dL (31.6-35.5); Mean Corpuscular Hemoglobin 29.9 pg (28.0-33.3); Mean Corpuscular Volume 93.2 fL (83.0-100.0); Platelet Count 145 K/mcL (140-400); Red Blood Count 3.84 M/mcL (4.19-5.50); Red Cell Distribution Width 14.5 % (11.5-14.5); White Blood Count 11.5 K/mcL (4.3-11.1)
[2021-06-28 01:18] LABS: Alanine Aminotransferase 44 Units/L (7-52); Albumin 3.1 g/dL (3.5-5.7); Albumin/Globulin Ratio 1.4 (1.1-2.2); Alkaline Phosphatase 59 Units/L (34-104); Aspartate Amino Transferase 24 Units/L (13-39); BUN/Creatinine Ratio 42 (6-26); Bilirubin,Total 0.5 mg/dL (0.3-1.0); Blood Urea Nitrogen 53 mg/dL (8-23); Calcium 8.3 mg/dL (8.6-10.3); Carbon Dioxide 27 mEq/L (23-29); Chloride 105 mEq/L (98-107); Globulin 2.2 g/dL (2.4-3.5); Glucose 173 mg/dL (70-105); Osmolality,Calculated 303 (280-300); Potassium 5.1 mEq/L (3.5-5.1); Sodium 137 mEq/L (136-145); Total Protein 5.3 g/dL (6.4-8.9); eGFR For African Americans > 60 (> 60); eGFR For Non-African Americans 56 (> 60)
[2021-06-28 02:17] VITALS: BP 112/76; PULSE 87; TEMP 98.4
[2021-06-28] MEDS: Ipratropium/Albuterol Neb 3 ML IH SCH ×3 (03:11→15:57)
[2021-06-28] MEDS: *HR* Heparin 5,000 UNIT/ML VIAL SQ SCH (05:52)
[2021-06-28] MEDS: Aspirin 81 MG TAB.CHEW PO SCH (08:27)
[2021-06-28] MEDS: predniSONE 20 MG TABLET PO SCH (08:28)
[2021-06-28] MEDS: carvediloL 6.25 MG TABLET PO SCH (08:28)
[2021-06-28 16:00] VITALS: O2SAT 91
== END 2021-06-28 16:50 | disposition other institution (70) | DRG 871 ==
LOC: 2NENU → SUATTDRO 18:50 → ICNU 06-12 06:50 → 2NNU 06-12 22:27 → 2NENU 06-14 14:42
PROVIDERS: ADMIT Family Medicine; ATTEND Internal Medicine

== ENCOUNTER 2022-03-24 20:42 | Inpatient (IN) ==
[2022-03-24] MEDS ORDERED: Naloxone 0.4 MG/ML INJ IVP PRN (23:00)
[2022-03-24] MEDS ORDERED: Ondansetron ODT 4 MG TAB.RAPDIS SL PRN (23:00)
[2022-03-24] MEDS ORDERED: Acetaminophen 325 MG TABLET PO PRN (23:13)
[2022-03-24] MEDS ORDERED: *HR* HYDROcodone/Acet 5/325 mg TABLET PO PRN (23:13)
[2022-03-24] MEDS ORDERED: D5% in Water 1,000 ML IVC PRN (23:54)
[2022-03-24] MEDS ORDERED: *HR* Dextrose 50 % in Water (Syg) 50 ML SYRINGE IVP PRN (23:54)
[2022-03-24] MEDS ORDERED: Dextrose Gel 15 GM/37.5 ML TUBE PO PRN ×2 (23:54)
[2022-03-25 00:20] LABS: Basophils % 0.2 %; Hematocrit 36.8 % (37.5-50.1); Hemoglobin 11.8 g/dL (12.9-16.9); Immature Granulocytes % 0.8 % (0-4); Lymphocytes % 4.8 %; Mean Corpuscular HGB Conc 32.1 g/dL (31.6-35.5); Mean Corpuscular Hemoglobin 30.3 pg (28.0-33.3); Mean Corpuscular Volume 94.6 fL (83.0-100.0); Mean Platelet Volume 10.7 fL (9.4-12.4); Monocytes # 1.3 K/mcL (0.0-1.3); Monocytes % 6.4 %; Neutrophils # 17.9 K/mcL (1.6-8.9); Platelet Count 141 K/mcL (140-400); Red Blood Count 3.89 M/mcL (4.19-5.50); Red Cell Distribution Width 15.6 % (11.5-14.5); Segmented Neutrophils % 87.8 %; White Blood Count 20.4 K/mcL (4.3-11.1)
[2022-03-25 00:30] LABS: INR 1.3; Prothrombin Time 14.3 Seconds (9.4-12.1)
[2022-03-25 00:32] LABS: Activated Partial Thrombo Time 34.7 Seconds (26.0-36.0)
[2022-03-25] MEDS ORDERED: Ipratropium/Albuterol Neb 3 ML IH PRN (01:05)
[2022-03-25 01:09] LABS: Platelet Estimate Normal (Normal)
[2022-03-25] MEDS ORDERED: Albumin Human 5% 25.0 GM/500 ML IV.SOLN ONE (01:14)
[2022-03-25 01:29] LABS: Calcium 8.3 mg/dL (8.6-10.3); Magnesium 2.1 mg/dL (1.6-2.6); Phosphorous 8.4 mg/dL (2.7-4.5); Potassium 5.9 mEq/L (3.5-5.1); Troponin I 0.09 ng/mL (< 0.04); Uric Acid 21.6 mg/dL (2.3-7.6)
[2022-03-25] MEDS: Sodium Bicarbonate 150 MEQ in D5% in Water 1,000 ML IVC SCH ×3 (01:39→20:53)
[2022-03-25] MEDS: Calcium Gluconate 1gm/50mL 1 GM/50 ML BAG IVPB SCH ×2 (02:26→02:27)
[2022-03-25] MEDS: *HR* Heparin 5,000 UNIT/ML VIAL SQ SCH ×2 (05:37→21:34)
[2022-03-25] MEDS: Piperacillin/Tazobactam 3.375 GM in 0.9 % Sodium Chloride Mini Bag 100 ML IVPB SCH ×2 (05:38→18:16)
[2022-03-25 05:48] LABS: VBG Ionized Calcium 0.96 mmol/L (1.15-1.35)
[2022-03-25 05:51] LABS: Basophils % 0.2 %; Hematocrit 33.1 % (37.5-50.1); Hemoglobin 10.9 g/dL (12.9-16.9); Immature Granulocytes % 0.6 % (0-4); Lymphocytes # 0.7 K/mcL (0.6-4.6); Lymphocytes % 4.4 %; Mean Corpuscular HGB Conc 32.9 g/dL (31.6-35.5); Mean Corpuscular Hemoglobin 30.2 pg (28.0-33.3); Mean Corpuscular Volume 91.7 fL (83.0-100.0); Mean Platelet Volume 11.1 fL (9.4-12.4); Monocytes # 1.1 K/mcL (0.0-1.3); Monocytes % 6.8 %; Neutrophils # 14.1 K/mcL (1.6-8.9); Platelet Count 118 K/mcL (140-400); Red Blood Count 3.61 M/mcL (4.19-5.50); Red Cell Distribution Width 15.3 % (11.5-14.5)
[2022-03-25] MEDS ORDERED: 0.9 % Sodium Chloride 500 ML IVC ONE (05:57)
[2022-03-25] MEDS ORDERED: Calcium Chloride 1,000 MG in 0.9 % Sodium Chloride 100 ML IVPB ONE (06:15)
[2022-03-25 06:22] LABS: Platelet Estimate Slight Decrease (Normal); Toxic Granulation Present (Not Present)
[2022-03-25 06:56] LABS: Albumin 3.3 g/dL (3.5-5.7); Albumin/Globulin Ratio 1.5 (1.1-2.2); Bilirubin,Total 0.3 mg/dL (0.3-1.0); Calcium 8.2 mg/dL (8.6-10.3); Globulin 2.2 g/dL (2.4-3.5); Phosphorous 8.8 mg/dL (2.7-4.5); Potassium 5.4 mEq/L (3.5-5.1); Total Protein 5.5 g/dL (6.4-8.9)
[2022-03-25 10:31] LABS: ABG Base Excess -12 mEq/L (-2 to 3); ABG HCO3 12 mEq/L (21-27); ABG Oxygen Saturation 95 % (95-98); ABG PCO2 24 mmHg (35-45); ABG PH 7.33 pH Units (7.32-7.45); ABG PO2 81 mmHg (85-104); ABG TCO2 13 mEq/L (20-26)
[2022-03-25 12:30] LABS: Adenovirus F 40/41 PCR Not detected (Not detect); Astrovirus PCR Not detected (Not detect); Campylobacter by PCR Not detected (Not detect); Cryptosporidium by PCR Not detected (Not detect); Cyclospora cayetanensis PCR Not detected (Not detect); Entamoeba histolytica PCR Not detected (Not detect); Enteroaggregative E.coli(EAEC) Not detected (Not detect); Enteropathogenic E.coli(EPEC) Not detected (Not detect); Enterotoxigenic E.coli (ETEC) Not detected (Not detect); Giardia lamblia PCR Not detected (Not detect); Norovirus GI/GII PCR Not detected (Not detect); Plesiomonas shigelloides PCR Not detected (Not detect); Rotavirus A PCR Not detected (Not detect); Salmonella PCR Not detected (Not detect); Sapovirus PCR Not detected (Not detect); Shig/EnteroinvasiveE coli EIEC Not detected (Not detect); Shigalike tox-prod E coli STEC Not detected (Not detect); Vibrio PCR Not detected (Not detect); Vibrio cholerae PCR Not detected (Not detect); Yersinia enterocolitica PCR Not detected (Not detect)
[2022-03-25 12:32] LABS: C.difficile Toxin A/B Gene PCR DETECTED (Not detect)
[2022-03-25] MEDS: Vancomycin Oral Soln 125 MG/2.5 ML UDC PO SCH (13:55)
[2022-03-25] MEDS ORDERED: *HR* Heparin 5,000 UNIT/ML VIAL ONE (15:16)
[2022-03-25] MEDS ORDERED: Heparin 1,000 UNITS/500 mL 500 ML ONE (15:20)
[2022-03-25] MEDS: MetroNIDAZOLE 500 MG/100 ML 500 MG/100 ML BAG IVPB SCH ×2 (16:10→23:55)
[2022-03-25] MEDS ORDERED: *HR* Heparin 5,000 UNIT/ML VIAL IVP PRN (16:27)
[2022-03-25] MEDS ORDERED: Calcium Gluconate 1gm/50mL 1 GM/50 ML BAG IVPB PRN ×2 (17:02)
[2022-03-25] MEDS ORDERED: Iopamidol - 370 500 ML MLS IVP ONE (17:14)
[2022-03-25] MEDS ORDERED: Calcium Chloride 4,000 MG in 0.9 % Sodium Chloride 1,000 ML CRRT SCH (17:15)
[2022-03-25] MEDS ORDERED: PrismaSATE BGK 4/2.5 5,000 ML CRRT SCH ×2 (17:15)
[2022-03-25] MEDS: Norepinephrine 4 MG/254 ML IV.SOLN IVC SCH (17:25)
[2022-03-25] MEDS: SODIUM CITRATE 500 ML CRRT SCH ×2 (20:12→21:28)
[2022-03-25] MEDS: 0.9 % Sodium Chloride 1,000 ML PRIME SCH ×3 (21:28→23:38)
[2022-03-25] MEDS: Vancomycin 500 MG, Sodium Chloride IRRigation 250 ML RC SCH (22:04)
[2022-03-25] MEDS ORDERED: 0.9 % Sodium Chloride 1,000 ML PRIME PRN (23:39)
[2022-03-26] MEDS ORDERED: Ringers Solution, Lactated 1,000 ML IVC ONE ×2 (00:03→01:36)
[2022-03-26] MEDS ORDERED: *HR* Heparin 5,000 UNIT/ML VIAL IVP ONE (01:36)
[2022-03-26] MEDS ORDERED: *HR* Heparin 5,000 UNIT/ML VIAL IVP PRN ×2 (01:36)
[2022-03-26] MEDS ORDERED: Heparin 25,000UNIT/250ML 1/2NS 25,000 UNIT/250 ML IV.SOLN IVC SCH (01:45)
[2022-03-26 02:57] LABS: Heparin anti-factor XA UFH 0.94 IU/mL (0.30-0.70); INR 1.9; Prothrombin Time 21.4 Seconds (9.4-12.1)
[2022-03-26] MEDS: Sodium Bicarbonate 150 MEQ in D5% in Water 1,000 ML IVC SCH ×3 (03:10→12:29)
[2022-03-26] MEDS ORDERED: Ringers Solution, Lactated 1,000 ML ONE (03:33)
[2022-03-26] MEDS ORDERED: Ringers Solution, Lactated 500 ML IVC ONE ×2 (03:36→05:10)
[2022-03-26 03:40] LABS: VBG Ionized Calcium 1.05 mmol/L (1.15-1.35)
[2022-03-26 03:54] LABS: Hematocrit 25.7 % (37.5-50.1); Hemoglobin 8.8 g/dL (12.9-16.9); Immature Platelets 5.5 % (1.1-6.1); Mean Corpuscular HGB Conc 34.2 g/dL (31.6-35.5); Mean Corpuscular Hemoglobin 30.3 pg (28.0-33.3); Mean Corpuscular Volume 88.6 fL (83.0-100.0); Mean Platelet Volume 11.7 fL (9.4-12.4); Red Blood Count 2.9 M/mcL (4.19-5.50); White Blood Count 15.5 K/mcL (4.3-11.1)
[2022-03-26 05:05] LABS: Calcium 7.3 mg/dL (8.6-10.3); Magnesium 1.6 mg/dL (1.6-2.6); Potassium 4.3 mEq/L (3.5-5.1)
[2022-03-26] MEDS ORDERED: Calcium Gluconate 1gm/50mL 1 GM/50 ML BAG IVPB ONE (05:36)
[2022-03-26] MEDS ORDERED: Albumin 25% 25gram/100mL 25 GM/100 ML IV.SOLN IVPB ONE (06:15)
[2022-03-26] MEDS: Piperacillin/Tazobactam 3.375 GM in 0.9 % Sodium Chloride Mini Bag 100 ML IVPB SCH (06:17)
[2022-03-26] MEDS: SODIUM CITRATE 500 ML CRRT SCH ×2 (06:25→12:25)
[2022-03-26] MEDS: Albumin Human 5% 12.5 GM/250 ML IV.SOLN IVC SCH ×2 (07:57→12:01)
[2022-03-26] MEDS: MetroNIDAZOLE 500 MG/100 ML 500 MG/100 ML BAG IVPB SCH (08:13)
[2022-03-26] MEDS: Vancomycin 500 MG, Sodium Chloride IRRigation 250 ML RC SCH ×2 (09:40→12:30)
[2022-03-26] MEDS: Norepinephrine 4 MG/254 ML IV.SOLN IVC SCH (14:54)
[2022-03-26] MEDS ORDERED: *HR* HYDROmorphone (PF) 1 MG/ML SYRINGE IVP PRN (15:58)
[2022-03-26] MEDS ORDERED: Atropine Sulfate 1% 40 DROP/2 ML BOTTLE SL PRN ×2 (15:59→16:07)
[2022-03-26] MEDS ORDERED: *HR* LORazepam Oral Conc 2 MG/ML SL PRN ×2 (15:59→16:10)
[2022-03-26] MEDS ORDERED: Ipratropium/Albuterol Neb 3 ML IH PRN (16:02)
[2022-03-26] MEDS ORDERED: Acetaminophen 325 MG TABLET PO PRN (16:02)
[2022-03-26] MEDS ORDERED: Ondansetron ODT 4 MG TAB.RAPDIS SL PRN (16:02)
[2022-03-26] MEDS: Vancomycin Oral Soln 125 MG/2.5 ML UDC PO SCH (16:55)
[2022-03-26] MEDS: *HR* HYDROmorphone 2 MG/ML SYRINGE IVP PRN ×2 (18:29→23:28)
[2022-03-27] MEDS: *HR* HYDROmorphone 2 MG/ML SYRINGE IVP PRN ×3 (03:28→12:45)
[2022-03-27 07:29] VITALS: BP 94/58; PULSE 101; TEMP 99.2
[2022-03-27 07:46] VITALS: O2SAT 92
[2022-03-27] MEDS ORDERED: Acetaminophen 650 MG RECTAL SUPP RC PRN (09:30)
[2022-03-27] MEDS ORDERED: Saliva Stimulant 44.3ml BOTTLE PO PRN (09:31)
[2022-03-27] MEDS ORDERED: Lacri-Lube 3.5 GM TUBE BOTH EYES SCH (09:45)
[2022-03-27] MEDS ORDERED: Artificial Tears SOLN 15 ML BOTTLE BOTH EYES SCH (13:15)
== END 2022-03-27 14:06 | disposition hospice, inpatient (51) | DRG 871 ==
LOC: ICNU → 2ANU 03-26 18:36
PROVIDERS: ADMIT Internal Medicine; ATTEND Internal Medicine

== ENCOUNTER 2022-03-26 15:46 | Inpatient (IN) ==
[2022-03-27] MEDS ORDERED: Ondansetron 4 MG/2 ML VIAL IVP PRN (10:58)
[2022-03-27] MEDS ORDERED: Bisacodyl 10 MG RECTAL SUPPOSITORY RC PRN (10:58)
[2022-03-27] MEDS ORDERED: Haloperidol Oral Conc 10 MG/5 ML UDC PO PRN (10:58)
[2022-03-27] MEDS ORDERED: Atropine Sulfate 1% 40 DROP/2 ML BOTTLE SL PRN (10:58)
[2022-03-27] MEDS ORDERED: Acetaminophen 650 MG RECTAL SUPP RC PRN (11:04)
[2022-03-27] MEDS ORDERED: Saliva Stimulant 44.3ml BOTTLE PO PRN (11:06)
[2022-03-27] MEDS ORDERED: Lacri-Lube 3.5 GM TUBE BOTH EYES SCH (11:15)
[2022-03-27] MEDS: *HR* HYDROmorphone (PF) 1 MG/ML SYRINGE IVP PRN ×2 (17:14→21:35)
[2022-03-27] MEDS: Artificial Tears SOLN 15 ML BOTTLE BOTH EYES SCH ×2 (17:15→22:51)
[2022-03-27] MEDS: *HR* LORazepam Oral Conc 2 MG/ML PO PRN (18:30)
[2022-03-27 18:43] VITALS: O2SAT 83
[2022-03-28] MEDS: *HR* HYDROmorphone (PF) 1 MG/ML SYRINGE IVP PRN (05:24)
[2022-03-28] MEDS: *HR* LORazepam Oral Conc 2 MG/ML PO PRN (05:42)
[2022-03-28] MEDS ORDERED: *HR* HYDROmorphone (PF) 1 MG/ML SYRINGE IVP PRN (09:53)
[2022-03-28] MEDS ORDERED: Haloperidol Lactate 5 MG/ML VIAL IVP PRN (10:06)
[2022-03-28] MEDS: *HR* HYDROmorphone (PF) 1 MG/ML SYRINGE IVP SCH ×4 (10:25→22:05)
[2022-03-28] MEDS: Artificial Tears SOLN 15 ML BOTTLE BOTH EYES SCH ×2 (11:26→22:06)
[2022-03-28] MEDS: *HR* LORazepam 2 MG/ML VIAL IVP PRN ×2 (13:08→22:04)
[2022-03-29] MEDS: *HR* HYDROmorphone (PF) 1 MG/ML SYRINGE IVP SCH ×6 (02:24→21:17)
[2022-03-29] MEDS ORDERED: *HR* LORazepam 2 MG/ML VIAL IVP PRN (09:28)
[2022-03-29] MEDS ORDERED: *HR* HYDROmorphone (PF) 1 MG/ML SYRINGE IVP PRN (09:28)
[2022-03-29] MEDS ORDERED: *HR* HYDROmorphone 2 MG/ML SYRINGE IVP ONE (09:30)
[2022-03-29] MEDS: Artificial Tears SOLN 15 ML BOTTLE BOTH EYES SCH ×2 (09:44→21:17)
[2022-03-29 11:11] VITALS: BP 54/33; PULSE 111; TEMP 98.9
[2022-03-29] MEDS: Haloperidol Lactate 5 MG/ML VIAL IVP SCH ×2 (12:12→18:10)
== END 2022-03-29 00:50 | disposition expired | DRG 951 ==
LOC: 2ANU 03-27 14:07
PROVIDERS: ADMIT Internal Medicine Hospice and Palliative Medicine; ATTEND Internal Medicine Hospice and Palliative Medicine